=== PATIENT | female | born 1940 | race Caucasian/White ===

== ENCOUNTER 2016-07-21 13:21 | Outpatient (CLI) | payer MEDICARE | END 2016-07-21 13:22 | disposition home or self-care (01) | DX: I63.9 Cerebral infarction, unspecified (principal); Z79.01 Long term (current) use of anticoagulants; I48.91 Unspecified atrial fibrillation ==

== ENCOUNTER 2016-08-03 10:36 | Outpatient (CLI) | payer MEDICARE | END 2016-08-03 10:37 | disposition home or self-care (01) | DX: I63.9 Cerebral infarction, unspecified (principal); Z79.01 Long term (current) use of anticoagulants ==

== ENCOUNTER 2016-08-17 10:51 | Outpatient (CLI) | payer MEDICARE | END 2016-08-17 10:52 | disposition home or self-care (01) | DX: I63.9 Cerebral infarction, unspecified (principal); Z79.01 Long term (current) use of anticoagulants ==

== ENCOUNTER 2016-08-31 08:31 | Outpatient (CLI) | payer MEDICARE | END 2016-08-31 08:32 | disposition home or self-care (01) | DX: I63.9 Cerebral infarction, unspecified (principal); Z79.01 Long term (current) use of anticoagulants ==

== ENCOUNTER 2016-09-05 08:35 | Outpatient (CLI) | payer MEDICARE | END 2016-09-05 08:36 | disposition home or self-care (01) | DX: I63.9 Cerebral infarction, unspecified (principal) ==

== ENCOUNTER 2016-09-14 09:50 | Outpatient (CLI) | payer MEDICARE | END 2016-09-14 09:51 | disposition home or self-care (01) | DX: I48.91 Unspecified atrial fibrillation (principal); I63.9 Cerebral infarction, unspecified; Z79.01 Long term (current) use of anticoagulants ==

== ENCOUNTER 2016-10-04 09:26 | Outpatient (CLI) | payer MEDICARE | END 2016-10-04 09:27 | DX: I48.91 Unspecified atrial fibrillation (principal); I63.9 Cerebral infarction, unspecified; Z79.01 Long term (current) use of anticoagulants ==

== ENCOUNTER 2016-10-12 15:13 | Outpatient (CLI) | payer MEDICARE | END 2016-10-12 15:14 | disposition home or self-care (01) | DX: I48.91 Unspecified atrial fibrillation (principal); I63.9 Cerebral infarction, unspecified; Z79.01 Long term (current) use of anticoagulants ==

== ENCOUNTER 2016-10-25 10:41 | Outpatient (CLI) | payer MEDICARE | END 2016-10-25 10:42 | disposition home or self-care (01) | DX: I48.91 Unspecified atrial fibrillation (principal); Z79.01 Long term (current) use of anticoagulants; I63.9 Cerebral infarction, unspecified ==

== ENCOUNTER 2016-10-25 22:03 | Emergency (ER) | payer MEDICARE ==
--- NOTE | 2016-10-26 00:19 | ED Physician Documentation ---
PD HPI HEAD INJURY - Stated complaint Stated Complaint: EYE LAC - Chief complaint Chief Complaint: Laceration - History obtained from History obtained from: Patient - History of Present Illness Mechanism of head injury: Fell Where head injury occurred: Other (parking lot, tripped on curb) Timing - onset: Today (noon) Pain level max: 0 Pain level now: 0 Location of injury: Right, Front Associated symptoms: No: LOC, Nausea / vomiting, Neck pain Contributing factors: Anticoagulated Recently seen: Not recently seen - Additional information Additional information: patient was walking in a parking lot, tripped on a curb, fell and struck her head on the ground, sustaining four head laceration. This occurred today around noon. Patient presents at this time to the emergency department after recognizing the wound was deeper then she first thought. She denies loss of consciousness. she denies headache she denies pain including neck pain. Patient denies numbness, weakness, nausea. Review of Systems Eyes: reports: Reviewed and negative Ears: reports: Reviewed and negative Nose: reports: Reviewed and negative Throat: reports: Reviewed and negative Skin: reports: Laceration (s) Musculoskeletal: reports: Reviewed and negative. denies: Neck pain Neurologic: reports: Head injury. denies: Generalized weakness, Focal weakness , Numbness, Headache, LOC PD PAST MEDICAL HISTORY - Past Medical History Cardiovascular: Hypertension, High cholesterol, [place], Atrial fibrillation Respiratory: None Neuro: CVA, TIA Endocrine/Autoimmune: None GI: None : None HEENT: Chronic vision loss, Chronic hearing loss Psych: Depression, Anxiety Musculoskeletal: Other Derm: None - Past Surgical History Past Surgical History: Yes Ortho: Hip replacement HEENT: Tonsil/Adenoidectomy - Present Medications Home Medications: Ambulatory Orders Medication Instructions Recorded Confirmed Gabapentin [Neurontin] 150 mg PO BID 08/08/13 10/25/16 Lisinopril [Prinivil] 10 mg PO DAILY 08/08/13 10/25/16 Simvastatin [Zocor] 10 mg PO HS 08/08/13 10/25/16 Sotalol [Betapace] 160 mg PO BID 08/08/13 10/25/16 Vit D3/Folic Acid/B2/B6/B12 1 each PO DAILY 08/08/13 10/25/16 [Folgard Tablet] Warfarin [Coumadin] 5 mg PO 1400 08/08/13 10/25/16 buPROPion [Wellbutrin Sr] 150 mg PO BID 11/19/15 10/25/16 Donepezil [Aricept] 5 mg PO DAILY PM 10/25/16 10/25/16 - Allergies Allergies/Adverse Reactions: Allergies Allergy/AdvReac Type Severity Reaction Status Date / Time Penicillins Allergy Unknown Verified 11/19/15 19:33 - Social History Does the pt smoke?: No Smoking Status: Never smoker Does the pt drink ETOH?: No Does the pt have substance abuse?: No - Immunizations Immunizations are current?: Yes - POLST Patient has POLST: No PD ED PE NORMAL - Vitals Vital signs reviewed: Yes - General General: Alert and oriented X 3, No acute distress, Well developed/nourished - HEENT HEENT: PERRL, EOMI, Moist mucous membranes, Pharynx benign, Dentition benign - Neck Neck: No bony TTP - Extremities Extremities: No deformity, No tenderness to palpate, Normal ROM s pain - Neuro Neuro: Alert and oriented X 3, engraver copperplate 2-12 intact, No motor deficit, No sensory deficit PD ED PE EXPANDED - HEENT HEENT Visual: 1 - laceration (1.5 cm) Results - Vitals Vitals: Oxygen O2 Source Room air Procedures - Laceration (location) Face right Length in cm: 1.5 Neurovascular status: Sensory intact, Motor intact, Vascular intact Anesthesia: Lidocaine 1% Wound Preparation: Chlorhexadine Skin layer closure: Nylon, Interrupted (running suture with a solitary single interrupted.), Running Other: Patient tolerated well, No complications, Neurovascular intact, Dressing applied Complexity: Simple PD MEDICAL DECISION MAKING - ED course Complexity details: considered differential, d/w patient Departure - Departure Disposition: 01 Home, Self Care Clinical Impression: Laceration Condition: Good Instructions: ED Laceration Facial Sutr Tape Follow-Up: Dedrick Randle MD [Primary Care Provider] - (Follow up in 7-8 days for suture (stitch) removal) Discharge Date/Time: 10/26/16 02:06
[2016-10-26 00:24] VITALS: BP 111/54
[2016-10-26] MEDS ORDERED: LIDOCAINE 1% 2 ML VIAL ONE (00:40)
[2016-10-26] MEDS ORDERED: BACITRACIN OINT TOP STA (01:49)
== END 2016-10-26 02:06 | disposition home or self-care (01) ==
LOC: ED 22:03
DX: S01.81XA Laceration without foreign body of other part of head, initial encounter (principal); W01.198A Fall on same level from slipping, tripping and stumbling with subsequent striking against other object, initial encounter; Y92.481 Parking lot as the place of occurrence of the external cause; Y93.01 Activity, walking, marching and hiking; I10 Essential (primary) hypertension; Z86.73 Personal history of transient ischemic attack (TIA), and cerebral infarction without residual deficits; Z79.01 Long term (current) use of anticoagulants; E78.00 Pure hypercholesterolemia, unspecified; I25.2 Old myocardial infarction; I48.91 Unspecified atrial fibrillation
CPT/HCPCS: 12011; 85610; 99282

== ENCOUNTER 2016-11-08 13:17 | Outpatient (CLI) | payer MEDICARE | END 2016-11-08 13:18 | disposition home or self-care (01) | DX: I63.9 Cerebral infarction, unspecified (principal); Z79.01 Long term (current) use of anticoagulants; I48.91 Unspecified atrial fibrillation ==

== ENCOUNTER 2016-11-15 11:13 | Outpatient (CLI) | payer MEDICARE | END 2016-11-15 11:14 | disposition home or self-care (01) | DX: I63.9 Cerebral infarction, unspecified (principal); Z79.01 Long term (current) use of anticoagulants; I48.91 Unspecified atrial fibrillation ==

== ENCOUNTER 2016-11-22 08:06 | Outpatient (CLI) | payer MEDICARE | END 2016-11-22 08:07 | disposition home or self-care (01) | DX: M86.652 Other chronic osteomyelitis, left thigh (principal) ==

== ENCOUNTER 2016-11-23 12:52 | Outpatient (CLI) | payer MEDICARE | END 2016-11-23 12:53 | disposition home or self-care (01) | DX: I48.91 Unspecified atrial fibrillation (principal); I63.9 Cerebral infarction, unspecified; Z79.01 Long term (current) use of anticoagulants ==

== ENCOUNTER 2016-11-27 11:02 | Outpatient (CLI) | payer MEDICARE | END 2016-11-27 11:03 | disposition home or self-care (01) | DX: I48.91 Unspecified atrial fibrillation (principal); I63.9 Cerebral infarction, unspecified; Z79.01 Long term (current) use of anticoagulants ==

== ENCOUNTER 2016-11-30 14:56 | Outpatient (CLI) | payer MEDICARE | END 2016-11-30 14:57 | disposition home or self-care (01) | LOC: LAB.F 14:56 | PROVIDERS: ATTEND Family Medicine | DX: I48.91 Unspecified atrial fibrillation (principal) | CPT/HCPCS: 85610 ==

== ENCOUNTER 2016-12-05 09:53 | Outpatient (CLI) | payer MEDICARE | END 2016-12-05 09:54 | disposition home or self-care (01) | LOC: LAB.F 09:53 | PROVIDERS: ATTEND Family Medicine | DX: I48.91 Unspecified atrial fibrillation (principal) | CPT/HCPCS: 85610 ==

== ENCOUNTER 2016-12-14 10:07 | Outpatient (CLI) | payer MEDICARE | END 2016-12-14 10:08 | disposition home or self-care (01) | LOC: LAB.F 10:07 | PROVIDERS: ATTEND Family Medicine | DX: I48.91 Unspecified atrial fibrillation (principal) | CPT/HCPCS: 85610 ==

== ENCOUNTER 2016-12-28 07:49 | Outpatient (CLI) | payer MEDICARE | END 2016-12-28 07:50 | disposition home or self-care (01) | LOC: LAB.F 07:49 | PROVIDERS: ATTEND Family Medicine | DX: I63.9 Cerebral infarction, unspecified (principal) | CPT/HCPCS: 85610 ==

== ENCOUNTER 2017-01-10 14:06 | Outpatient (CLI) | payer MEDICARE | END 2017-01-10 14:07 | disposition home or self-care (01) | LOC: LAB.F 14:06 | PROVIDERS: ATTEND Family Medicine | DX: I63.9 Cerebral infarction, unspecified (principal) | CPT/HCPCS: 85610 ==

== ENCOUNTER 2017-01-12 09:29 | Outpatient (CLI) | payer MEDICARE ==
[2017-01-12 17:36] LABS: BASOPHILS % (AUTO) 0.5 %; EOSINOPHILS # (AUTO) 0.2 10^3/uL (0.0-0.7); EOSINOPHILS % (AUTO) 3.5 %; HCT - HEMATOCRIT 40.7 % (37.0-47.0); HGB - HEMOGLOBIN 13.1 g/dL (12.0-16.0); LYMPHOCYTES # (AUTO) 1.4 10^3/uL (1.5-3.5); LYMPHOCYTES % (AUTO) 31.8 %; MEAN CORPUSCULAR HEMOGLOBIN 29.7 pg (27.0-31.0); MEAN CORPUSCULAR HGB CONC 32.2 g/dL (32.0-36.0); MEAN CORPUSCULAR VOLUME 92.2 fL (81.0-99.0); MEAN PLATELET VOLUME 9.1 fL (7.9-10.8); MONOCYTES # (AUTO) 0.4 10^3/uL (0.0-1.0); MONOCYTES % (AUTO) 8.8 %; NEUTROPHILS # (AUTO) 2.5 10^3/uL (1.5-6.6); NEUTROPHILS % (AUTO) 55.4 %; NUCLEATED RED BLOOD CELLS AUTO 0.1 /100WBC; RED BLOOD COUNT 4.41 10^6/uL (4.20-5.40); RED CELL DISTRIBUTION WIDTH 15.7 % (12.0-15.0); UNCORRECTED WHITE BLOOD COUNT 4.5 x10^3/uL; WHITE BLOOD COUNT 4.5 x10^3/uL (4.8-10.8)
[2017-01-12 20:26] LABS: ALBUMIN/GLOBULIN RATIO 0.9 (1.0-2.2); BILIRUBIN,TOTAL 0.5 mg/dL (0.2-1.0); BUN - BLOOD UREA NITROGEN 17 mg/dL (6-20); CALCIUM 9.2 mg/dL (8.5-10.3); CARBON DIOXIDE - CO2 31 mmol/L (21-32); CHLORIDE 101 mmol/L (101-111); CHOL/HDL RATIO 2.8 (<4.4); CHOLESTEROL 151 mg/dL; CREATININE 0.8 mg/dL (0.4-1.0); GFR - MDRD 70 (>89); GLUCOSE 89 mg/dL (70-100); HDL CHOLESTEROL 54 mg/dL; LDL/HDL RATIO 1.6 (<4.4); POTASSIUM 4.3 mmol/L (3.5-5.0); SODIUM 138 mmol/L (135-145); TRIGLYCERIDES 59 mg/dL; VLDL CHOLESTEROL 12 mg/dL
== END 2017-01-12 09:30 | disposition home or self-care (01) ==
LOC: LAB.F 09:29
PROVIDERS: ATTEND Family Medicine
DX: I63.9 Cerebral infarction, unspecified (principal)
CPT/HCPCS: 36415; 80053; 80061; 84443; 85025

== ENCOUNTER 2017-01-24 13:42 | Outpatient (CLI) | payer MEDICARE | END 2017-01-24 13:43 | disposition home or self-care (01) | LOC: LAB.F 13:42 | PROVIDERS: ATTEND Family Medicine | DX: I63.9 Cerebral infarction, unspecified (principal); I48.91 Unspecified atrial fibrillation; Z79.01 Long term (current) use of anticoagulants | CPT/HCPCS: 85610 ==

== ENCOUNTER 2017-02-07 11:16 | Outpatient (CLI) | payer MEDICARE | END 2017-02-07 11:17 | disposition home or self-care (01) | LOC: LAB.F 11:16 | PROVIDERS: ATTEND Family Medicine | DX: I63.9 Cerebral infarction, unspecified (principal) | CPT/HCPCS: 85610 ==

== ENCOUNTER 2017-02-21 15:08 | Outpatient (CLI) | payer MEDICARE | END 2017-02-21 15:09 | disposition home or self-care (01) | LOC: LAB.F 15:08 | PROVIDERS: ATTEND Family Medicine | DX: I63.9 Cerebral infarction, unspecified (principal) | CPT/HCPCS: 85610 ==

== ENCOUNTER 2017-03-07 13:14 | Outpatient (CLI) | payer MEDICARE | END 2017-03-07 13:15 | disposition home or self-care (01) | LOC: LAB.F 13:14 | PROVIDERS: ATTEND Family Medicine | DX: I63.9 Cerebral infarction, unspecified (principal) | CPT/HCPCS: 85610 ==

== ENCOUNTER 2017-03-21 13:18 | Outpatient (CLI) | payer MEDICARE | END 2017-03-21 13:19 | disposition home or self-care (01) | LOC: LAB.F 13:18 | PROVIDERS: ATTEND Family Medicine | DX: I63.9 Cerebral infarction, unspecified (principal); Z79.01 Long term (current) use of anticoagulants | CPT/HCPCS: 85610 ==

== ENCOUNTER 2017-03-29 13:19 | Outpatient (CLI) | payer MEDICARE | END 2017-03-29 13:20 | disposition home or self-care (01) | LOC: LAB.F 13:19 | PROVIDERS: ATTEND Family Medicine | DX: I63.9 Cerebral infarction, unspecified (principal); Z79.01 Long term (current) use of anticoagulants; I48.91 Unspecified atrial fibrillation | CPT/HCPCS: 85610 ==

== ENCOUNTER 2017-05-01 13:22 | Outpatient (CLI) | payer MEDICARE | END 2017-05-01 13:23 | disposition home or self-care (01) | LOC: LAB.F 13:22 | PROVIDERS: ATTEND Family Medicine | DX: I63.9 Cerebral infarction, unspecified (principal); Z79.01 Long term (current) use of anticoagulants; I48.91 Unspecified atrial fibrillation | CPT/HCPCS: 85610 ==

== ENCOUNTER 2017-06-06 14:31 | Outpatient (CLI) | payer MEDICARE | END 2017-06-06 14:32 | disposition home or self-care (01) | LOC: LAB.F 14:31 | PROVIDERS: ATTEND Family Medicine | DX: I63.9 Cerebral infarction, unspecified (principal); Z79.01 Long term (current) use of anticoagulants | CPT/HCPCS: 85610 ==

== ENCOUNTER 2017-06-20 14:23 | Outpatient (CLI) | payer MEDICARE | END 2017-06-20 14:24 | disposition home or self-care (01) | LOC: LAB.F 14:23 | PROVIDERS: ATTEND Family Medicine | DX: I63.9 Cerebral infarction, unspecified (principal); Z79.01 Long term (current) use of anticoagulants | CPT/HCPCS: 85610 ==

== ENCOUNTER 2017-07-16 12:52 | Outpatient (CLI) | payer MEDICARE | END 2017-07-16 12:53 | disposition home or self-care (01) | LOC: LAB.F 12:52 | PROVIDERS: ATTEND Family Medicine | DX: I63.9 Cerebral infarction, unspecified (principal); Z79.01 Long term (current) use of anticoagulants; I48.91 Unspecified atrial fibrillation | CPT/HCPCS: 85610 ==

== ENCOUNTER 2017-07-30 15:18 | Outpatient (CLI) | payer MEDICARE | END 2017-07-30 15:19 | disposition home or self-care (01) | LOC: LAB.F 15:18 | PROVIDERS: ATTEND Family Medicine | DX: I63.9 Cerebral infarction, unspecified (principal); Z79.01 Long term (current) use of anticoagulants | CPT/HCPCS: 85610 ==

== ENCOUNTER 2017-08-22 11:15 | Outpatient (CLI) | payer MEDICARE | END 2017-08-22 11:16 | disposition home or self-care (01) | LOC: LAB.F 11:15 | PROVIDERS: ATTEND Family Medicine | DX: I63.9 Cerebral infarction, unspecified (principal); Z79.01 Long term (current) use of anticoagulants | CPT/HCPCS: 85610 ==

== ENCOUNTER 2017-08-30 11:16 | Outpatient (CLI) | payer MEDICARE | END 2017-08-30 11:17 | disposition home or self-care (01) | LOC: LAB.F 11:16 | PROVIDERS: ATTEND Family Medicine | DX: I63.9 Cerebral infarction, unspecified (principal); Z79.01 Long term (current) use of anticoagulants | CPT/HCPCS: 85610 ==

== ENCOUNTER 2017-09-12 10:11 | Outpatient (CLI) | payer MEDICARE | END 2017-09-12 10:12 | disposition home or self-care (01) | LOC: LAB.F 10:11 | PROVIDERS: ATTEND Family Medicine | DX: I63.9 Cerebral infarction, unspecified (principal); Z79.01 Long term (current) use of anticoagulants | CPT/HCPCS: 85610 ==

== ENCOUNTER 2017-10-04 09:29 | Outpatient (CLI) | payer MEDICARE | END 2017-10-04 09:30 | disposition home or self-care (01) | LOC: LAB.F 09:29 | PROVIDERS: ATTEND Family Medicine | DX: I63.9 Cerebral infarction, unspecified (principal); Z79.01 Long term (current) use of anticoagulants | CPT/HCPCS: 85610 ==

== ENCOUNTER 2017-10-25 09:42 | Outpatient (CLI) | payer MEDICARE | END 2017-10-25 09:43 | disposition home or self-care (01) | LOC: LAB.F 09:42 | PROVIDERS: ATTEND Family Medicine | DX: I63.9 Cerebral infarction, unspecified (principal); Z79.01 Long term (current) use of anticoagulants | CPT/HCPCS: 85610 ==

== ENCOUNTER 2017-11-23 08:34 | Outpatient (CLI) | payer MEDICARE | END 2017-11-23 08:35 | disposition home or self-care (01) | LOC: LAB.F 08:34 | PROVIDERS: ATTEND Family Medicine | DX: I63.9 Cerebral infarction, unspecified (principal); Z79.01 Long term (current) use of anticoagulants | CPT/HCPCS: 85610 ==

== ENCOUNTER 2017-12-13 08:59 | Outpatient (CLI) | payer MEDICARE | END 2017-12-13 09:00 | disposition home or self-care (01) | LOC: LAB.F 08:59 | PROVIDERS: ATTEND Family Medicine | DX: I48.91 Unspecified atrial fibrillation (principal); Z79.01 Long term (current) use of anticoagulants | CPT/HCPCS: 85610 ==

== ENCOUNTER 2018-01-03 11:17 | Outpatient (CLI) | payer MEDICARE | END 2018-01-03 11:18 | disposition home or self-care (01) | LOC: LAB.F 11:17 | PROVIDERS: ATTEND Family Medicine | DX: I48.91 Unspecified atrial fibrillation (principal); Z79.01 Long term (current) use of anticoagulants | CPT/HCPCS: 85610 ==

== ENCOUNTER 2018-01-10 13:54 | Outpatient (CLI) | payer MEDICARE | END 2018-01-10 13:55 | disposition home or self-care (01) | LOC: LAB.F 13:54 | PROVIDERS: ATTEND Family Medicine | DX: Z79.01 Long term (current) use of anticoagulants (principal); I48.91 Unspecified atrial fibrillation | CPT/HCPCS: 85610 ==

== ENCOUNTER 2018-01-18 08:50 | Outpatient (CLI) | payer MEDICARE ==
[2018-01-18 10:43] LABS: BASOPHILS % (AUTO) 1.3 %; EOSINOPHILS # (AUTO) 0.2 10^3/uL (0.0-0.7); EOSINOPHILS % (AUTO) 7.1 %; HGB - HEMOGLOBIN 12.8 g/dL (12.0-16.0); LYMPHOCYTES # (AUTO) 1.3 10^3/uL (1.5-3.5); LYMPHOCYTES % (AUTO) 35.9 %; MEAN CORPUSCULAR HGB CONC 32.5 g/dL (32.0-36.0); MEAN CORPUSCULAR VOLUME 95.5 fL (81.0-99.0); MEAN PLATELET VOLUME 9.6 fL (7.9-10.8); MONOCYTES # (AUTO) 0.3 10^3/uL (0.0-1.0); MONOCYTES % (AUTO) 9.9 %; NEUTROPHILS # (AUTO) 1.6 10^3/uL (1.5-6.6); NEUTROPHILS % (AUTO) 45.8 %; PLT - PLATELET COUNT 117 10^3/uL (130-450); RED BLOOD COUNT 4.13 10^6/uL (4.20-5.40); RED CELL DISTRIBUTION WIDTH 15.6 % (12.0-15.0); WHITE BLOOD COUNT 3.5 x10^3/uL (4.8-10.8)
[2018-01-18 10:52] LABS: ALBUMIN 3.4 g/dL (3.2-5.5); ALKALINE PHOSPHATASE 60 IU/L (42-121); ALT ALANINE AMINOTRANSFERASE 16 IU/L (10-60); AST ASPARTATE AMINOTRANSFERASE 26 IU/L (10-42); BILIRUBIN,TOTAL 0.7 mg/dL (0.2-1.0); BUN - BLOOD UREA NITROGEN 29 mg/dL (6-20); CALCIUM 9.2 mg/dL (8.5-10.3); CARBON DIOXIDE - CO2 28 mmol/L (21-32); CHLORIDE 103 mmol/L (101-111); CHOL/HDL RATIO 2.2 (<4.4); CHOLESTEROL 149 mg/dL; CREATININE 0.8 mg/dL (0.4-1.0); GFR - MDRD 70 (>89); GLUCOSE 81 mg/dL (70-100); HDL CHOLESTEROL 69 mg/dL; SODIUM 137 mmol/L (135-145); TOTAL PROTEIN 6.8 g/dL (6.7-8.2)
[2018-01-18 11:13] LABS: LDL CHOLESTEROL,DIRECT 86 mg/dL; LDLD/HDL RATIO 1.2 (<4.4)
== END 2018-01-18 08:51 | disposition home or self-care (01) ==
LOC: LAB.F 08:50
PROVIDERS: ATTEND Family Medicine
DX: I48.91 Unspecified atrial fibrillation (principal)
CPT/HCPCS: 36415; 80053; 80061; 83721; 84443; 85025

== ENCOUNTER 2018-02-01 09:55 | Outpatient (CLI) | payer MEDICARE | END 2018-02-01 09:56 | disposition home or self-care (01) | LOC: LAB.F 09:55 | PROVIDERS: ATTEND Family Medicine | DX: Z79.01 Long term (current) use of anticoagulants (principal); I63.9 Cerebral infarction, unspecified; I48.91 Unspecified atrial fibrillation | CPT/HCPCS: 85610 ==

== ENCOUNTER 2018-02-28 09:39 | Outpatient (CLI) | payer MEDICARE | END 2018-02-28 09:40 | disposition home or self-care (01) | LOC: LAB.F 09:39 | PROVIDERS: ATTEND Family Medicine | DX: Z79.01 Long term (current) use of anticoagulants (principal); I63.9 Cerebral infarction, unspecified; I48.91 Unspecified atrial fibrillation | CPT/HCPCS: 85610 ==

== ENCOUNTER 2018-03-28 08:00 | Outpatient (CLI) | payer MEDICARE | END 2018-03-28 08:01 | disposition home or self-care (01) | LOC: LAB.F 08:00 | PROVIDERS: ATTEND Family Medicine | DX: Z79.01 Long term (current) use of anticoagulants (principal); I48.91 Unspecified atrial fibrillation | CPT/HCPCS: 85610 ==

== ENCOUNTER 2018-04-15 09:08 | Outpatient (CLI) | payer MEDICARE | END 2018-04-15 09:09 | disposition critical access hospital (66) | LOC: EMS 09:08 | PROVIDERS: ATTEND Surgery | DX: R55 Syncope and collapse (principal); R42 Dizziness and giddiness; M54.5 Low back pain; R07.9 Chest pain, unspecified; W18.39XA Other fall on same level, initial encounter; Y93.01 Activity, walking, marching and hiking; Y92.002 Bathroom of unspecified non-institutional (private) residence as the place of occurrence of the external cause | CPT/HCPCS: A0425; A0427 ==

== ENCOUNTER 2018-04-15 09:28 | Observation (INO) | payer MEDICARE ==
[2018-04-15] MEDS ORDERED: ACETAMINOPHEN 325 MG TABLET PO STA (09:39)
--- NOTE | 2018-04-15 09:43 | ED Physician Documentation ---
History of Present Illness - Stated complaint Stated Complaint: GLF - Chief complaint Chief Complaint: Cardiac - Additonal information Additional information: hx from pt and EMS and 78 female [place] pt PMD Dr Bisi Anderson this AM felt faint and dizzy and had a syncopal episode out for approx 2 min per EMS states she had a pulse and was breathing no seizure activity reported now having low back pain from fall denies hitting head or MOYA but on coumadin did have CP and EMS found pt in fib RVR upon their arrival spont converted CP gone now EMS EKG showed ant ST elev but EMS states she has an EKG from February that was similar - unfortunately this EKG was done at [facility] and neither EMS nor brought it in no recent illness no recent med changes no hx of same Review of Systems Constitutional: denies: Fever, Chills Cardiac: reports: Chest pain / pressure, Palpitations Respiratory: denies: Dyspnea, Cough GI: denies: Abdominal Pain, Nausea, Vomiting Musculoskeletal: reports: Back pain. denies: Neck pain Neurologic: reports: Generalized weakness, Syncope. denies: Focal weakness, Numbness, Seizure, Headache, Head injury Endocrine: reports: Easy bruising / bleeding Immunocompromised: denies: Immunocompromised PD PAST MEDICAL HISTORY - Past Medical History Cardiovascular: Hypertension, High cholesterol, [place], Atrial fibrillation Respiratory: None Endocrine/Autoimmune: None GI: None : None HEENT: Chronic vision loss, Chronic hearing loss Psych: Depression, Anxiety Musculoskeletal: Other Derm: None - Past Surgical History Past Surgical History: Yes Ortho: Hip replacement HEENT: Tonsil/Adenoidectomy - Present Medications Home Medications: Ambulatory Orders Medication Instructions Recorded Confirmed Gabapentin [Neurontin] 300 mg PO BID 08/08/13 04/15/18 Lisinopril [Prinivil] 10 mg PO DAILY 08/08/13 04/15/18 Simvastatin [Zocor] 10 mg PO HS 08/08/13 04/15/18 Sotalol [Betapace] 160 mg PO BID 08/08/13 04/15/18 Warfarin [Coumadin] 5 mg PO 1400 08/08/13 04/15/18 Cefuroxime Axetil [Cefuroxime] 500 mg PO BID 04/15/18 04/15/18 Cholecalciferol (Vitamin D3) 1,000 unit PO DAILY 10/08/18 10/08/18 [Vitamin D3] Citalopram Hydrobromide 10 mg PO DAILY 04/15/18 04/15/18 [Citalopram HBr] Donepezil HCl 10 mg PO DAILY 04/15/18 04/15/18 Oxycodone HCl/Acetaminophen 1 tab PO Q4H PRN 04/15/18 04/15/18 [Oxycodone-Acetaminophen 5-325] - Allergies Allergies/Adverse Reactions: Allergies Allergy/AdvReac Type Severity Reaction Status Date / Time Penicillins Allergy Unknown Verified 11/19/15 19:33 - Social History Does the pt smoke?: No Smoking Status: Never smoker Does the pt drink ETOH?: No Does the pt have substance abuse?: No - Immunizations Immunizations are current?: Yes - POLST Patient has POLST: No PD ED PE NORMAL - Vitals Vital signs reviewed: Yes - General General: Alert and oriented X 3 - HEENT HEENT: Atraumatic, PERRL, EOMI - Neck Neck: No bony TTP - Cardiac Cardiac: RRR - Respiratory Respiratory: No respiratory distress, Clear bilaterally - Abdomen Abdomen: Soft, Non tender - Derm Derm: Normal color - Extremities Extremities: No deformity, No edema, No calf tenderness / cord - Neuro Neuro: Alert and oriented X 3, air moving technician 2-12 intact, No motor deficit, No sensory deficit, Normal speech Eye Opening: Spontaneous Motor: Obeys Commands Verbal: Oriented GCS Score: 15 Results - Vitals Vitals: Vital Signs - 24 hr 04/15/18 09:29 Temperature 36.0 C L Heart Rate 63 Respiratory 16 Rate Blood Pressure 152/72 H O2 Saturation 99 Oxygen O2 Source Room air - EKG (time done) 0936 Rate: Rate (enter#) (59) Rhythm: NSR Intervals: Prolonged QT, Wide QRS (borderline) Ischemia: ST elevation c/w ischemia (V2 - similar to prior EKG) - Rads (name of study) CTH Radiology: See rad report (no acute) L spine Radiology: See rad report (degen changes) pelvis Radiology: See rad report (no acute fx dislocation) CXR Radiology: See rad report (no acute process) PD MEDICAL DECISION MAKING - ED course ED course: a fib RVR with CP/syncope and abn (though not new) EKG and prolonged QT hx int a fib usually controlled with sotalol will admit for tele, echo, serial trops, hold ST prolonging meds called hospitalist at 11 AM spoke to hospitalist at 1115 - she will admit to obs pt and family updated - Sepsis Event Vital Signs: Vital Signs - 24 hr 04/15/18 09:29 Temperature 36.0 C L Heart Rate 63 Respiratory 16 Rate Blood Pressure 152/72 H O2 Saturation 99 Oxygen O2 Source Room air Departure - Departure Disposition: ED Place in Observation Clinical Impression: Prolonged QT interval, Abnormal EKG Syncope Qualifiers: Syncope type: unspecified Qualified Code(s): R55 - Syncope and collapse Chest pain Qualifiers: Chest pain type: unspecified Qualified Code(s): R07.9 - Chest pain, unspecified A-fib Qualifiers: Atrial fibrillation type: paroxysmal Qualified Code(s): I48.0 - Paroxysmal atrial fibrillation Condition: Fair
[2018-04-15 10:11] LABS: BASOPHILS % (AUTO) 0.4 %; EOSINOPHILS # (AUTO) 0.1 10^3/uL (0.0-0.7); EOSINOPHILS % (AUTO) 3.5 %; HGB - HEMOGLOBIN 14.6 g/dL (12.0-16.0); LYMPHOCYTES # (AUTO) 1.2 10^3/uL (1.5-3.5); LYMPHOCYTES % (AUTO) 27.7 %; MEAN CORPUSCULAR HEMOGLOBIN 31.9 pg (27.0-31.0); MEAN CORPUSCULAR HGB CONC 34.3 g/dL (32.0-36.0); MEAN CORPUSCULAR VOLUME 92.9 fL (81.0-99.0); MEAN PLATELET VOLUME 9.1 fL (7.9-10.8); MONOCYTES # (AUTO) 0.3 10^3/uL (0.0-1.0); MONOCYTES % (AUTO) 7.4 %; NEUTROPHILS # (AUTO) 2.6 10^3/uL (1.5-6.6); PLT - PLATELET COUNT 113 10^3/uL (130-450); RED BLOOD COUNT 4.57 10^6/uL (4.20-5.40); RED CELL DISTRIBUTION WIDTH 14.6 % (12.0-15.0); WHITE BLOOD COUNT 4.2 x10^3/uL (4.8-10.8)
[2018-04-15 10:16] LABS: CALCIUM 9.3 mg/dL (8.5-10.3); CREATININE 0.8 mg/dL (0.4-1.0)
[2018-04-15 10:22] LABS: INR 2.1 (0.8-1.2); PT - PROTHROMBIN TIME 22.7 secs (9.9-12.6)
--- NOTE | 2018-04-15 10:23 | XRAY Report ---
Reason: chest pain Procedure Date: 04/15/2018 Accession Number: [id number] / [id number] Procedure: XR - Chest 1 View X-Ray CPT Code: 46000 FULL RESULT: EXAM: CHEST RADIOGRAPHY EXAM DATE: 04/15/2018 10:04 AM. CLINICAL HISTORY: Chest pain. COMPARISON: CHEST 2 VIEW PA/LAT 02/25/2015 3:52 PM. TECHNIQUE: 1 view. FINDINGS: The inferior most lung bases are partially excluded. Visualized portions of the chest radiograph are essentially stable with hyperinflated lungs and unchanged cardiomediastinal silhouette with partially calcified aorta. No sizable pleural effusion or pneumothorax is appreciated. There is no lobar consolidation. IMPRESSION: Limited stable examination with no acute cardiopulmonary abnormality. RADIA
--- NOTE | 2018-04-15 10:27 | XRAY Report ---
Reason: fall pain Procedure Date: 04/15/2018 Accession Number: [id number] / [id number] Procedure: XR - Pelvis 1 View CPT Code: FULL RESULT: EXAM: PELVIS RADIOGRAPHY EXAM DATE: 04/15/2018 10:04 AM. CLINICAL HISTORY: Fall pain. COMPARISON: X-ray hip unilateral, minimum 2 views 11/27/2009 5:31 PM. TECHNIQUE: 1 view. FINDINGS: The patient is status post bilateral total hip arthroplasty. There is a healed peritrochanteric fracture through the left femur, new compared to 2009 but similar in configuration to a 2013 CT. There has been interval increased thickening of the previously abnormally thickened diaphyseal left femoral cortex, also partially visualized on the right femoral diaphysis and most consistent with bisphosphonate use. No fracture or dislocation of the right femur is identified. IMPRESSION: Interval vance- left femoral fracture which appears to have healed. Finding is new compared to 11/27/2009 but appears similar to 2014 CT. No definite acute fracture or dislocation. CRITICAL RESULT: The findings were discussed with Dr. Menchaca on 04/15/2018 at 10:30 a.m. JOSE
--- NOTE | 2018-04-15 10:28 | XRAY Report ---
Reason: fall back pain Procedure Date: 04/15/2018 Accession Number: [id number] / [id number] Procedure: XR - Lumbar Spine 2 View CPT Code: FULL RESULT: EXAM: LUMBOSACRAL SPINE RADIOGRAPHY EXAM DATE: 04/15/2018 10:04 AM. CLINICAL HISTORY: Fall back pain. COMPARISONS: None. TECHNIQUE: 3 views. FINDINGS: Limited examination with 5 [id number] lumbar vertebral bodies with multilevel degenerative changes, which are most pronounced at L5 and no overt listhesis or traumatic scoliosis. IMPRESSION: Limited evaluation with degenerative changes identified. RADIA
--- NOTE | 2018-04-15 10:29 | CT Report ---
Reason: fall coumadin Procedure Date: 04/15/2018 Accession Number: [id number] / [id number] Procedure: CT - Head W/O CPT Code: FULL RESULT: EXAM: CT HEAD EXAM DATE: 04/15/2018 10:14 AM. CLINICAL HISTORY: Fall, coumadin. COMPARISON: Head w/o 02/25/2015 3:57 PM. TECHNIQUE: Multiaxial CT images were obtained from the foramen magnum to the vertex. Reformats: Sagittal and coronal. IV contrast: None. In accordance with CT protocol optimization, one or more of the following dose reduction techniques were utilized for this exam: automated exposure control, adjustment of mA and/or KV based on patient size, or use of iterative reconstructive technique. FINDINGS: Parenchyma: No intraparenchymal hemorrhage. No evidence of mass, midline shift, or CT findings of infarction. Golden-white differentiation is distinct. Extraaxial Spaces: Normal for age. No subdural or epidural collections identified. Ventricles: Normal in size and position. Sinuses and Orbits: Imaged paranasal sinuses, orbits, and mastoids show no significant abnormality. Bones: No evidence of fracture or calvarial defect. Other: None. IMPRESSION: No acute intracranial abnormality. RADIA
[2018-04-15] MEDS ORDERED: SODIUM CHLORIDE FLUSH 0.9% 10 ML SYRINGE IVP PRN (12:53)
[2018-04-15] MEDS ORDERED: ZOLPIDEM 5 MG TABLET PO PRN (12:53)
[2018-04-15] MEDS ORDERED: ONDANSETRON 4 MG/2 ML VIAL IVP PRN (12:53)
[2018-04-15] MEDS ORDERED: oxyCODONE 5 MG TABLET PO PRN (13:20)
--- NOTE | 2018-04-15 13:39 | HISTORY & PHYSICAL EXAMINATION ---
Chief Complaint - Chief Complaint Chief Complaint: syncope History of Present Illness - History of Present Illness HPI Comment/Other: Ms. Salguero is a 75 y/o female with a PMH significance for a fib on Coumadin, hx of CVA, syncope, HTN, HLD, CAD, depression and anxiety, chronic lower back pain, who present ER for complain of syncope. Pt repeat she feel lightheaded and felt dizziness at home. Then her noted she was slumped over and fell in the ground. She was arousable but had a second episode of slumping. pt reports she lost consciousness in this episode. Pt also report lower back pain after this incidence. Xray of spine and pelvis indicate no acute fracture. Head CT reveals no acute findings. Pt denies chest pain, fever, chill, shortness of breath. troponin is negative in ER, EKG is without significant change. pt is admitted in observation for syncope workup. History - Past Medical History Cardiovascular: reports: Hypertension, High cholesterol, [place], Atrial fibrillation Respiratory: reports: None Neuro: reports: CVA Endocrine/Autoimmune: reports: None GI: reports: None : reports: None HEENT: reports: Chronic vision loss, Chronic hearing loss Psych: reports: Depression, Anxiety Musculoskeletal: reports: Other Derm: reports: None MRSA Hx?: No - Past Surgical History Ortho: reports: Hip replacement HEENT: reports: Tonsil/Adenoidectomy - Family & Social History Family History: Mother: , Father: , CAD, [place] Family History Comment/Other: pt is living [facility] with her , pt had two child, one son and one daughter and had three grandfather. pt report her father from heart attack. her mother from old ago. Social History Notes: pt denies smoking, alcohol and drug problem - POLST Patient has POLST: No POLST Status: DNR Meds/Allgy - Home Medications Home Medications: Ambulatory Orders Medication Instructions Recorded Confirmed Gabapentin [Neurontin] 300 mg PO BID 08/08/13 04/15/18 Lisinopril [Prinivil] 10 mg PO DAILY 08/08/13 04/15/18 Simvastatin [Zocor] 10 mg PO HS 08/08/13 04/15/18 Sotalol [Betapace] 160 mg PO BID 08/08/13 04/15/18 Warfarin [Coumadin] 5 mg PO 1400 08/08/13 04/15/18 Cefuroxime Axetil [Cefuroxime] 500 mg PO BID 04/15/18 04/15/18 Cholecalciferol (Vitamin D3) 1,000 unit PO DAILY 04/15/18 04/15/18 [Vitamin D3] Citalopram Hydrobromide 10 mg PO DAILY 04/15/18 04/15/18 [Citalopram HBr] Donepezil HCl 10 mg PO DAILY 04/15/18 04/15/18 Oxycodone HCl/Acetaminophen 1 tab PO Q4H PRN 04/15/18 04/15/18 [Oxycodone-Acetaminophen 5-325] - Allergies Allergies/Adverse Reactions: Allergies Allergy/AdvReac Type Severity Reaction Status Date / Time Penicillins Allergy Unknown Verified 11/19/15 19:33 Review of Systems - Constitutional Constitutional: reports: Fatigue. denies: Fever, Chills, Malaise, Weakness, Poor appetite, Diaphoresis, Night sweats - Eyes Eyes: denies: Pain, Irritation, Amaurosis, Blurred vision, Spots in vision, Field loss, Vision loss, Dipolpia - Ears, Nose & Throat Ears, Nose & Throat: denies: Ear pain, Hearing loss, Hearing aids, Tinnitus, Vertigo, Nasal pain, Nasal discharge, Nosebleeds, Nasal obstruction, Postnasal drainage, Dentures, Sore throat, Hoarseness, Mouth lesions - Cardiovascular Cariovascular: reports: Syncope. denies: Irregular heart rate, Palpitations, Chest pain, Edema, Lightheadedness, Exertional dyspnea, Decr. exercise tolerance - Respiratory Respiratory: denies: Cough, Sputum production, Wheezing, Snoring, Hemoptysis, Orthopnea, SOB at rest, SOB with exertion - Gastrointestinal Gastrointestinal: denies: Abdominal pain, Abdominal distention, Constipation, Diarrhea, Change in bowel habits, Rectal bleeding, Black stools, Bloody stools, Nausea, Vomiting, Luis blood emesis, Coffee grounds emesis, Bloating, Poor appetite - Genitourinary Genitourinary: denies: Dysuria, Frequency, Urgency, Hematuria, Incontinence, Flank pain, Nocturia - Musculoskeletal Musculoskeletal: denies: Muscle pain, Back pain, Muscle aches, Stiffness, Limited range of motion, Muscle weakness, Gout, Joint pain - Integumentary Integumentary: denies: Rash, Pruritis, Lesions, Dryness, Lumps, Acne, Pigment changes, Nail changes - Neurological Neurological: denies: General weakness, Focal weakness, Headache, Dizziness, Numbness, Memory problems, Pre-existing deficit, Abnormal gait, Seizures, Incoordination, Slurred speech - Psychiatric Psychiatric: denies: Depression, Anxiety, Suicidal, Delusions, Hallucinations, Homicidal - Endocrine Endocrine: denies: Polyuria, Polydypsia, Polyphagia, Intolerance to cold - Hematologic/Lymphatic Hematologic/Lymphatic: denies: Anemia, Bruising, Petechiae, Blood clots, Ly mphadenopathy, Bleeding tendencies Prior Level of Functionality: pt is living with , has support Exam - Vital Signs Reviewed Vital Signs: Yes Vital Signs: Vital Signs x48h Temp Pulse Resp BP Pulse Ox 04/15/18 12:59 36.4 C L 60 16 129/70 97 04/15/18 11:39 72 14 142/64 H 97 04/15/18 10:25 60 16 134/75 H 99 04/15/18 09:29 36.0 C L 63 16 152/72 H 99 - Physical Exam General Appearance: positive: No acute distress, Alert. negative: Lethargic Eyes Bilateral: positive: Normal inspection, PERRL, No lid inflammation, Conjunctivae nml ENT: positive: ENT inspection nml, Pharynx nml, No signs of dehydration. negative: Purulent nasal drainage, Pharyngeal erythema, Oral lesions Neck: positive: Nml inspection, Thyroid nml, No JVD, Trachea midline. negative: Thyromegaly, Lymphadenopathy (R), Lymphadenopathy (L), Stiff neck, Swelling/bruising, Tracheal deviation Respiratory: positive: Chest non-tender, No respiratory distress, Breath sounds nml. negative: Wheezes, Rales, Rhonchi Cardiovascular: positive: Regular rate & rhythm, No murmur, No gallop. negative: Irregularly irregular, Extrasystoles, Tachycardia, Bradycardia, JVD present, Systolic murmur, Diastolic murmur Peripheral Pulses: positive: 2+ Abdomen: positive: Non-tender, No organomegaly, Nml bowel sounds, No distention. negative: Tenderness, Guarding, Rebound Back: positive: Nml inspection. negative: CVA tenderness (R), CVA tenderness (L) Skin: positive: Color nml, No rash, Warm, Dry, Cyanosis. negative: Diaphoresis, Pallor, Skin rash Extremities: positive: Non-tender, Full ROM, Nml appearance. negative: Calf tenderness, Joint swelling, Reece's sign/cords Neurologic/Psychiatric: positive: Oriented x3, Sensation nml, Mood/affect nml. negative: Weakness, Sensory loss, Facial droop, Slurred/abnml speech, Depressed mood/affect Conclusion/Plan - Problem List (1) Syncope Conclusion/Plan: pt has recurrence of syncope, unknown etiology, pt did not have hx of seizure order tele, vital monitor, EKG PRN ECHO and us of Carotid, will follow up Qualifiers: Syncope type: unspecified Qualified Code(s): R55 - Syncope and collapse (2) Afib Conclusion/Plan: pt has hx of afib on Coumadin. HR is stable continue home meds Coumadin, check INR daily continue Sotalol tele and vital monitor (3) HTN (hypertension) Conclusion/Plan: stable, restore home BP meds vital monitor (4) Hx of coronary artery disease Conclusion/Plan: pt has hx of [place], pt denies chest pain, continue check troponin tele, vital monitor (5) HLD (hyperlipidemia) Conclusion/Plan: stable, restore home Statin (6) Depression Conclusion/Plan: stable, continue home meds Citalopram (7) DVT prophylaxis Conclusion/Plan: SCD (8) Do not intubate, cardiopulmonary resuscitation (CPR)-only code status Conclusion/Plan: pt request DNR - Lab Results Fish Bones: 04/15/18 09:30 04/15/18 09:30 Core Measures - Anticipated LOS I expect patient to be DC'd or transferred within 96 hours.: Yes - DVT/VTE - Prophylaxis VTE/DVT Device ordered at admit?: Yes
[2018-04-15] MEDS ORDERED: WARFARIN 5 MG TABLET PO SCH (14:00)
[2018-04-15] MEDS ORDERED: SODIUM CHLORIDE 0.9% 1,000 ML IV SCH (17:00)
[2018-04-15] MEDS: SOTALOL 80 MG TABLET PO SCH (20:06)
[2018-04-15] MEDS: GABAPENTIN 300 MG CAPSULE PO SCH (20:06)
[2018-04-15] MEDS: SODIUM CHLORIDE FLUSH 0.9% 10 ML SYRINGE IVP SCH ×2 (20:06→20:15)
[2018-04-15] MEDS: FAMOTIDINE 20 MG TABLET PO SCH (20:07)
[2018-04-15] MEDS ORDERED: ATORVASTATIN 10 MG TABLET PO SCH (21:00)
[2018-04-15] MEDS: ACETAMINOPHEN 325 MG TABLET PO PRN (22:07)
--- NOTE | 2018-04-16 01:52 | Ultrasound Report ---
Reason: syncope Procedure Date: 04/15/2018 Accession Number: [id number] / [id number] Procedure: US - Carotid Doppler Complete CPT Code: FULL RESULT: EXAM: BILATERAL CAROTID AND VERTEBRAL ARTERY DUPLEX DOPPLER ULTRASOUND: EXAM DATE: 04/15/2018 09:56 PM CLINICAL HISTORY: Syncope. COMPARISON: None. TECHNIQUE: Grayscale imaging, color Doppler, and duplex spectral Doppler were used to evaluate the carotid and vertebral arteries bilaterally. Static images were obtained. FINDINGS: Grayscale evaluation demonstrates mild calcified plaque at the carotid bulbs and through the internal carotid arteries. Peak systolic velocities are within normal limits bilaterally. Normal antegrade flow is present in bilateral vertebral arteries. Doppler waveforms occurring at irregular intervals. VELOCITIES: Right: CCA Mid: PSV 80.9 cm/sec. CCA Dist: PSV 76.4 cm/sec. ICA Prox: PSV 55.6 cm/sec, EDV 13.3 cm/sec. ICA Mid: PSV 65.1 cm/sec, EDV 19.6 cm/sec. ICA Dist: PSV 74.5 cm/sec, EDV 19.6 cm/sec. ECA: PSV 68.9 cm/sec. Vertebral Artery: PSV 63.2 cm/sec. RVA flow direction: Antegrade. ICA/CCA Ratio: 0.7. Left: CCA Mid: PSV 82 cm/sec. CCA Dist: PSV 56.9 cm/sec. ICA Prox: PSV 40.6 cm/sec, EDV 13 cm/sec. ICA Mid: PSV 73.6 cm/sec, EDV 14.6 cm/sec. ICA Dist: PSV 76.4 cm/sec, EDV 21.1 cm/sec. ECA: PSV 96.6 cm/sec. Vertebral Artery: PSV 79.6 cm/sec. LVA flow direction: Antegrade. ICA/CCA Ratio: 0.7. ICA diameter stenosis: Right: <50% by velocity and <70% by NASCET criteria. Left: <50% by velocity and <70% by NASCET criteria. IMPRESSION: 1. Mild bilateral carotid bulb and internal carotid artery atheromatous plaque with no hemodynamically significant stenosis. 2. Cardiac arrhythmia. RADIA
[2018-04-16 05:33] LABS: EOSINOPHILS # (AUTO) 0.2 10^3/uL (0.0-0.7); EOSINOPHILS % (AUTO) 4.9 %; HGB - HEMOGLOBIN 12.9 g/dL (12.0-16.0); LYMPHOCYTES # (AUTO) 1.1 10^3/uL (1.5-3.5); LYMPHOCYTES % (AUTO) 25.7 %; MEAN CORPUSCULAR HEMOGLOBIN 31.3 pg (27.0-31.0); MEAN CORPUSCULAR HGB CONC 33.6 g/dL (32.0-36.0); MEAN CORPUSCULAR VOLUME 93.2 fL (81.0-99.0); MEAN PLATELET VOLUME 8.8 fL (7.9-10.8); MONOCYTES # (AUTO) 0.4 10^3/uL (0.0-1.0); MONOCYTES % (AUTO) 10.6 %; NEUTROPHILS # (AUTO) 2.4 10^3/uL (1.5-6.6); NEUTROPHILS % (AUTO) 57.8 %; PLT - PLATELET COUNT 92 10^3/uL (130-450); RED BLOOD COUNT 4.12 10^6/uL (4.20-5.40); RED CELL DISTRIBUTION WIDTH 14.5 % (12.0-15.0); WHITE BLOOD COUNT 4.1 x10^3/uL (4.8-10.8)
[2018-04-16 05:36] LABS: INR 3.3 (0.8-1.2); PT - PROTHROMBIN TIME 35.5 secs (9.9-12.6)
[2018-04-16 05:46] LABS: ALBUMIN 3.4 g/dL (3.2-5.5); ALBUMIN/GLOBULIN RATIO 1.2 (1.0-2.2); BILIRUBIN,TOTAL 0.9 mg/dL (0.2-1.0); CALCIUM 8.7 mg/dL (8.5-10.3); CREATININE 0.8 mg/dL (0.4-1.0); MAGNESIUM 1.9 mg/dL (1.7-2.8); TOTAL PROTEIN 6.2 g/dL (6.7-8.2)
[2018-04-16 06:56] VITALS: BP 139/64
[2018-04-16] MEDS: ACETAMINOPHEN 325 MG TABLET PO PRN (07:04)
[2018-04-16] MEDS ORDERED: ENOXAPARIN 40 MG/0.4 ML SYRINGE SUBQ SCH (09:00)
[2018-04-16] MEDS ORDERED: DONEPEZIL 5 MG TABLET PO SCH (09:00)
[2018-04-16] MEDS ORDERED: CITALOPRAM 10 MG TABLET PO SCH (09:00)
[2018-04-16] MEDS ORDERED: LISINOPRIL 5 MG TABLET PO SCH (09:00)
[2018-04-16] MEDS ORDERED: POLYETHYLENE GLYCOL 3350 17 GM PACKET PO SCH (09:00)
[2018-04-16] MEDS: GABAPENTIN 300 MG CAPSULE PO SCH (09:07)
[2018-04-16] MEDS: FAMOTIDINE 20 MG TABLET PO SCH (09:07)
[2018-04-16] MEDS: SOTALOL 80 MG TABLET PO SCH (09:07)
[2018-04-16] MEDS: SODIUM CHLORIDE FLUSH 0.9% 10 ML SYRINGE IVP SCH (09:07)
--- NOTE | 2018-04-16 11:38 | Discharge Plan ---
Discharge Plan Disposition: 01 Home, Self Care Condition: Good Diet: Regular Activity Restrictions: No Restrictions Shower Restrictions: No Driving Restrictions: Yes Weight Bearing: Full Weight Additional Instructions or Follow Up instructions: You were admitted for syncope and underwent a head CT that showed no abnormalities or bleeding. An echocardiogram was completed and preliminary results show a normal EF of 60- 65%, although, also shows a condition called Cor Pulmonale. This means that the right side of your heart is enlarged and there is abnormally high pressures. The first course of action is to make sure you do not have sleep apnea, by undergoing a sleep study. If this is found not to be the case, there is a medications called Spironolactone which is preferred treatment. Your INR today was just a little high at 3.3, so do not take your Warfarin today. Resume tomorrow. Please see your primary care provider within one week. No Smoking: If you smoke, Please STOP! Call for help. Follow-up with: Dedrick Randle MD [Primary Care Provider] -
[2018-04-16] MEDS ORDERED: ACETAMINOPHEN 325 MG TABLET PO ONE (11:55)
--- NOTE | 2018-04-16 11:57 | DISCHARGE SUMMARY ---
Discharge Summary Admit Date: 04/15/18 Discharge Date: 04/16/18 Discharging Provider: CRISSY Wei Primary Care Provider: Gabriel Randle Code Status: Do Not Attempt Resuscitation Condition at Discharge: Good Discharge Disposition: 01 Home, Self Care - DIAGNOSES Admission Diagnoses: Syncope and collapse (R55) Unspecified atrial fibrillation (I48.91) Essential (primary) hypertension (I10) Hyperlipidemia, unspecified (E78.5) Major depressive disorder, single episode, unspecified (F32.9) Personal history of other diseases of the circulatory system (Z86.79) Discharge Diagnoses with Status of Each Condition: Syncope (R55) stable, CVA ruled out. Cor pulmonale (I27.81) new on this admit. History of CVA (cerebrovascular accident) (Z86.73) chronic, stable. Afib (I48.91) chronic, stable. HTN (hypertension) (I10) chronic, stable. HLD (hyperlipidemia) (E78.5) chronic, stable. Depression (F32.9) chronic, stable. Hx of coronary artery disease (Z86.79) chronic, stable. - HPI History of Present Illness: Gayathri Salguero (Peg) is a 75 year old female with a past medical history of atrial fibrillation on Coumadin, hx of CVA, syncope, HTN, hyperlipidemia, CAD, depression, anxiety, and chronic lower back pain. She presented to the ED via EMS after her found her slumped over in the bathroom; primary complaint of syncope. The patient states that she had very little warning prior to this fall as she felt lightheaded and dizzy. She was arousable but had a second episode of slumping, which led to her calling 911. The patient is thought to have lost consciousness in this episode. The patient's only injury was her lower back and she complained of pain. Xray of spine and pelvis indicated no acute fractures. A head CT revealed no acute findings. The patient denied chest pain, fever, chills, or shortness of breath. A troponin was negative x3, EKG is without significant change and the the patient was admitted to the observation unit for a syncope workup. - HOSPITAL COURSE Hospital Course: (1) Syncope This is not the first episode of syncope as per the patient's report. She de nies any history of seizures, but did state that she has had "multiple strokes" in the past leaving her with short term memory loss, and decreased judgment. She is neuro-intact upon exam. Prior to discharge she underwent a physical therapy evaluation, who did not recommend a higher level of care or a change in ambulation devices. She did not have any significant stenoses as per her carotid doppler report and her head CT did not show any evidence of infarct or bleeding. This condition is in stable condition upon discharge and she was on her way to see her previously scheduled PCP today. (2) Afib The patient has a long history of this and is rate controlled with Sotalol, anticoagulated with Warfarin. Prior to discharge, she was told of her INR value being a bit elevated at 3.3 today, so she was to hold her daily coumadin. She is to follow up with her PCP. (3) HTN (hypertension) The patient's blood pressure was stable, and she was kept on her usual home meds. (4) Hx of coronary artery disease The patient admits to a history of MIs. She denied chest pain during this stay, except for her right rib cage related to her fall. She had serial troponins that were all negative. (5) HLD (hyperlipidemia) The patient remained on her usual dose of her home statin and this condition is stable. (6) Depression The patient is prescribed Citalopram at home, which was continued while she was in the hospital. (7) Cor Pulmonale The patient had preliminary echo results showing cor pulmonale as her RV and RA were enlarged, with an elevated RVSP at rest of 78 mmHg. The patient was encouraged to undergo a sleep study as a first line recommendation and should establish a technical operations vice president in the near future. Disposition: The patient was kept in observation for her hospital stay. She underwent the usual syncope work up in which there was no true one identifiable cause of her syncope. She was unaware of her right sided heart abnormalities, and this may be the most likely cause of her episode as she may have been slightly dehydrated, causing a lack of blood flow to her brain for a very short time. - ALLERGIES Allergies/Adverse Reactions: Allergies Allergy/AdvReac Type Severity Reaction Status Date / Time Penicillins Allergy Unknown Verified 11/19/15 19:33 - MEDICATIONS Home Medications: Ambulatory Orders Medication Instructions Recorded Confirmed Gabapentin [Neurontin] 300 mg PO BID 08/08/13 04/15/18 Lisinopril [Prinivil] 10 mg PO DAILY 08/08/13 04/15/18 Simvastatin [Zocor] 10 mg PO HS 08/08/13 04/15/18 Sotalol [Betapace] 160 mg PO BID 08/08/13 04/15/18 Warfarin [Coumadin] 5 mg PO 1400 08/08/13 04/15/18 Cefuroxime Axetil [Cefuroxime] 500 mg PO BID 04/15/18 04/15/18 Cholecalciferol (Vitamin D3) 1,000 unit PO DAILY 04/15/18 04/15/18 [Vitamin D3] Citalopram Hydrobromide 10 mg PO DAILY 04/15/18 04/15/18 [Citalopram HBr] Donepezil HCl 10 mg PO DAILY 04/15/18 04/15/18 Oxycodone HCl/Acetaminophen 1 tab PO Q4H PRN 04/15/18 04/15/18 [Oxycodone-Acetaminophen 5-325] - PHYSICAL EXAM AT DISCHARGE General Appearance: positive: No acute distress, Alert Eyes Bilateral: positive: Normal inspection, PERRL ENT: positive: ENT inspection nml, Pharynx nml, No signs of dehydration Neck: positive: Nml inspection, Thyroid nml, No JVD, Trachea midline Respiratory: positive: Chest non-tender, No respiratory distress, Breath sounds nml Cardiovascular: positive: No gallop, Irregularly irregular, Systolic murmur Peripheral Pulses: positive: 2+ Abdomen: positive: Non-tender, No organomegaly, Nml bowel sounds, Other (rounded, soft) Back: positive: Nml inspection Skin: positive: No rash, Warm, Dry Extremities: positive: Non-tender, Full ROM, Nml appearance, No pedal edema Neurologic/Psychiatric: positive: Oriented x3, CN's nml (2-12), Motor nml, Sensation nml, Mood/affect nml Reflexes: Bicep (R): 3+, Bicep (L): 3+ - LABS Result Diagrams: 04/16/18 05:07 04/16/18 05:07 - DIAGNOSTIC IMAGING Diagnostic Imaging Results: Prelim report reviewed, Final report reviewed Diagnostic Imaging Results Comments: EXAM: CHEST RADIOGRAPHY EXAM DATE: 04/15/2018 10:04 AM. IMPRESSION: Limited stable examination with no acute cardiopulmonary abnormality. EXAM: PELVIS RADIOGRAPHY EXAM DATE: 04/15/2018 10:04 AM. IMPRESSION: Interval vance- left femoral fracture which appears to have healed. Finding is new compared to 11/27/2009 but appears similar to 2014 CT. No definite acute fracture or dislocation. EXAM: LUMBOSACRAL SPINE RADIOGRAPHY EXAM DATE: 04/15/2018 10:04 AM. IMPRESSION: Limited evaluation with degenerative changes identified. EXAM: CT HEAD EXAM DATE: 04/15/2018 10:14 AM. IMPRESSION: No acute intracranial abnormality. EXAM: BILATERAL CAROTID AND VERTEBRAL ARTERY DUPLEX DOPPLER ULTRASOUND: EXAM DATE: 04/15/2018 09:56 PM IMPRESSION: 1. Mild bilateral carotid bulb and internal carotid artery atheromatous plaque with no hemodynamically significant stenosis. 2. Cardiac arrhythmia. ECHO- Final is pending, preliminary showed an elevated RVSP at rest of 78 mmHg, and enlarged RV and RA. - FOLLOW UP Follow Up: Disposition: Home, Self Care Condition: Good Diet: Regular Activity Restrictions: No Restrictions Shower Restrictions: No Driving Restrictions: Yes Weight Bearing: Full Weight Additional Instructions or Follow Up instructions: You were admitted for syncope and underwent a head CT that showed no abnormaliti es or bleeding. An echocardiogram was completed and preliminary results show a normal EF of 60-65%, although, also shows a condition called Cor Pulmonale. This means that the right side of your heart is enlarged and there is abnormally high pressures. The first course of action is to make sure you do not have sleep apnea, by undergoing a sleep study. If this is found not to be the case, there is a medications called Spironolactone which is preferred treatment. Your INR today was just a little high at 3.3, so do not take your Warfarin today. Resume tomorrow. Please see your primary care provider within one week. - TIME SPENT Time Spent in Discharge (Minutes): 55
[2018-04-16] MEDS ORDERED: CEFUROXIME AXETIL 500 MG PO SCH (21:00)
[2018-04-17] MEDS ORDERED: NON FORMULARY MED (Cholecalciferol (Vitamin D3) [Vitamin D3] 1,000 UNIT) PO SCH (09:00)
== END 2018-04-16 12:06 | disposition home or self-care (01) ==
LOC: EDUNIT# → ED 09:28 → MS3 12:53
PROVIDERS: ADMIT Nurse Practitioner Gerontology; ATTEND Nurse Practitioner
DX: R55 Syncope and collapse (principal); I27.81 Cor pulmonale (chronic); I69.311 Memory deficit following cerebral infarction; I48.0 Paroxysmal atrial fibrillation; Z79.01 Long term (current) use of anticoagulants; I10 Essential (primary) hypertension; R07.89 Other chest pain; E78.5 Hyperlipidemia, unspecified; F32.9 Major depressive disorder, single episode, unspecified; I25.10 Atherosclerotic heart disease of native coronary artery without angina pectoris; I25.2 Old myocardial infarction; M54.5 Low back pain; F41.9 Anxiety disorder, unspecified; R94.31 Abnormal electrocardiogram [ECG] [EKG]; W18.30XA Fall on same level, unspecified, initial encounter; Y92.012 Bathroom of single-family (private) house as the place of occurrence of the external cause; Z66 Do not resuscitate
CPT/HCPCS: 36415; 70450; 71045; 72100; 72170; 80048; 80053; 83735; 84484; 85025; 85610; 93005; 93306; 93880; 96360; 96361; 97161; 99284; A9270; G0378; G8978; G8979; G8980

== ENCOUNTER 2018-04-25 10:35 | Outpatient (CLI) | payer MEDICARE | END 2018-04-25 10:36 | disposition home or self-care (01) | LOC: LAB.F 10:35 | PROVIDERS: ATTEND Family Medicine | DX: I48.91 Unspecified atrial fibrillation (principal); I63.9 Cerebral infarction, unspecified; Z79.01 Long term (current) use of anticoagulants | CPT/HCPCS: 85610 ==

== ENCOUNTER 2018-05-02 10:23 | Outpatient (CLI) | payer MEDICARE | END 2018-05-02 10:24 | disposition home or self-care (01) | LOC: LAB.F 10:23 | PROVIDERS: ATTEND Family Medicine | DX: Z79.01 Long term (current) use of anticoagulants (principal); I63.9 Cerebral infarction, unspecified; I48.91 Unspecified atrial fibrillation | CPT/HCPCS: 85610 ==

== ENCOUNTER 2018-06-11 09:06 | Outpatient (CLI) | payer MEDICARE | END 2018-06-11 09:07 | disposition home or self-care (01) | LOC: LAB.F 09:06 | PROVIDERS: ATTEND Family Medicine | DX: Z79.01 Long term (current) use of anticoagulants (principal); I63.9 Cerebral infarction, unspecified; I48.91 Unspecified atrial fibrillation | CPT/HCPCS: 85610 ==

== ENCOUNTER 2018-07-05 10:08 | Outpatient (CLI) | payer MEDICARE | END 2018-07-05 10:09 | disposition home or self-care (01) | LOC: LAB.F 10:08 | PROVIDERS: ATTEND Family Medicine | DX: I48.91 Unspecified atrial fibrillation (principal); Z79.01 Long term (current) use of anticoagulants | CPT/HCPCS: 85610 ==

== ENCOUNTER 2018-07-17 14:33 | Outpatient (CLI) | payer MEDICARE | END 2018-07-17 14:34 | disposition home or self-care (01) | LOC: LAB.F 14:33 | PROVIDERS: ATTEND Family Medicine | DX: I63.9 Cerebral infarction, unspecified (principal); I48.91 Unspecified atrial fibrillation; Z79.01 Long term (current) use of anticoagulants | CPT/HCPCS: 85610 ==

== ENCOUNTER 2018-08-13 13:06 | Outpatient (CLI) | payer MEDICARE | END 2018-08-13 13:07 | disposition home or self-care (01) | LOC: LAB.F 13:06 | PROVIDERS: ATTEND Family Medicine | DX: Z79.01 Long term (current) use of anticoagulants (principal); I63.9 Cerebral infarction, unspecified; I48.91 Unspecified atrial fibrillation | CPT/HCPCS: 85610 ==

== ENCOUNTER 2018-09-09 11:24 | Outpatient (CLI) | payer MEDICARE | END 2018-09-09 11:25 | disposition home or self-care (01) | LOC: LAB.F 11:24 | PROVIDERS: ATTEND Family Medicine | DX: I48.91 Unspecified atrial fibrillation (principal); I63.9 Cerebral infarction, unspecified; Z79.01 Long term (current) use of anticoagulants | CPT/HCPCS: 85610 ==

== ENCOUNTER 2018-10-01 09:44 | Outpatient (CLI) | payer MEDICARE | END 2018-10-01 09:45 | disposition home or self-care (01) | LOC: LAB.F 09:44 | PROVIDERS: ATTEND Family Medicine | DX: I48.91 Unspecified atrial fibrillation (principal); I63.9 Cerebral infarction, unspecified; Z79.01 Long term (current) use of anticoagulants | CPT/HCPCS: 85610 ==

== ENCOUNTER 2018-10-29 09:40 | Outpatient (CLI) | payer MEDICARE | END 2018-10-29 09:41 | disposition home or self-care (01) | LOC: LAB.F 09:40 | PROVIDERS: ATTEND Family Medicine | DX: I63.9 Cerebral infarction, unspecified (principal); I48.91 Unspecified atrial fibrillation; Z79.01 Long term (current) use of anticoagulants | CPT/HCPCS: 85610 ==

== ENCOUNTER 2018-11-22 10:02 | Outpatient (CLI) | payer MEDICARE | END 2018-11-22 10:03 | disposition home or self-care (01) | LOC: LAB.F 10:02 | PROVIDERS: ATTEND Family Medicine | DX: I48.91 Unspecified atrial fibrillation (principal); Z79.01 Long term (current) use of anticoagulants | CPT/HCPCS: 85610 ==

== ENCOUNTER 2018-12-20 10:30 | Outpatient (CLI) | payer MEDICARE | END 2018-12-20 10:31 | disposition home or self-care (01) | LOC: LAB.F 10:30 | PROVIDERS: ATTEND Family Medicine | DX: Z79.01 Long term (current) use of anticoagulants (principal); I48.91 Unspecified atrial fibrillation | CPT/HCPCS: 85610 ==

== ENCOUNTER 2018-12-26 09:00 | Outpatient (CLI) | payer MEDICARE ==
[2018-12-26 17:55] LABS: BASOPHILS % (AUTO) 0.8 %; EOSINOPHILS # (AUTO) 0.2 10^3/uL (0.0-0.7); EOSINOPHILS % (AUTO) 5.9 %; LYMPHOCYTES # (AUTO) 1.3 10^3/uL (1.5-3.5); LYMPHOCYTES % (AUTO) 33.5 %; MEAN CORPUSCULAR HEMOGLOBIN 30.7 pg (27.0-31.0); MEAN CORPUSCULAR HGB CONC 30.1 g/dL (32.0-36.0); MEAN CORPUSCULAR VOLUME 101.9 fL (81.0-99.0); MEAN PLATELET VOLUME 12.2 fL (7.9-10.8); MONOCYTES # (AUTO) 0.3 10^3/uL (0.0-1.0); MONOCYTES % (AUTO) 7.5 %; NEUTROPHILS % (AUTO) 52.3 %; PLT - PLATELET COUNT 118 10^3/uL (130-450); RED BLOOD COUNT 4.24 10^6/uL (4.20-5.40); RED CELL DISTRIBUTION WIDTH 15.3 % (12.0-15.0); WHITE BLOOD COUNT 3.9 x10^3/uL (4.8-10.8)
[2018-12-26 18:58] LABS: ALBUMIN 3.7 g/dL (3.2-5.5); ALBUMIN/GLOBULIN RATIO 1.1 (1.0-2.2); ALKALINE PHOSPHATASE 71 IU/L (42-121); ALT ALANINE AMINOTRANSFERASE 23 IU/L (10-60); AST ASPARTATE AMINOTRANSFERASE 32 IU/L (10-42); BILIRUBIN,TOTAL 0.5 mg/dL (0.2-1.0); BUN - BLOOD UREA NITROGEN 31 mg/dL (6-20); CALCIUM 9.5 mg/dL (8.5-10.3); CARBON DIOXIDE - CO2 28 mmol/L (21-32); CHLORIDE 105 mmol/L (101-111); CHOL/HDL RATIO 2.6 (<4.4); CHOLESTEROL 169 mg/dL; CREATININE 0.8 mg/dL (0.4-1.0); GFR - MDRD 70 (>89); GLUCOSE 116 mg/dL (70-100); HDL CHOLESTEROL 64 mg/dL; LDL CHOLESTEROL,CALCULATED 93 mg/dL; LDL/HDL RATIO 1.5 (<4.4); SODIUM 141 mmol/L (135-145); VLDL CHOLESTEROL 12 mg/dL
== END 2018-12-26 23:59 | disposition home or self-care (01) ==
LOC: LAB.F 09:00
PROVIDERS: ATTEND Family Medicine
DX: I48.91 Unspecified atrial fibrillation (principal)
CPT/HCPCS: 36415; 80053; 80061; 83721; 84443; 85025

== ENCOUNTER 2019-01-20 10:00 | Outpatient (CLI) | payer MEDICARE | END 2019-01-20 10:01 | disposition home or self-care (01) | LOC: LAB.S 10:00 | PROVIDERS: ATTEND Family Medicine | DX: I48.91 Unspecified atrial fibrillation (principal); Z79.01 Long term (current) use of anticoagulants | CPT/HCPCS: 85610 ==

== ENCOUNTER 2019-02-03 11:23 | Outpatient (CLI) | payer MEDICARE ==
[2019-02-03 18:34] LABS: INR 3.9 (0.8-1.2); PT - PROTHROMBIN TIME 43.8 secs (9.9-12.6)
== END 2019-02-03 11:24 | disposition home or self-care (01) ==
LOC: LAB.S 11:23
PROVIDERS: ATTEND Family Medicine
DX: I48.91 Unspecified atrial fibrillation (principal); I63.9 Cerebral infarction, unspecified; Z79.01 Long term (current) use of anticoagulants
CPT/HCPCS: 36415; 85610

== ENCOUNTER 2019-02-16 11:50 | Outpatient (CLI) | payer MEDICARE | END 2019-02-16 11:51 | disposition critical access hospital (66) | LOC: EMS 11:50 | PROVIDERS: ATTEND Surgery | DX: R55 Syncope and collapse (principal); R09.89 Other specified symptoms and signs involving the circulatory and respiratory systems | CPT/HCPCS: A0425; A0427 ==

== ENCOUNTER 2019-02-16 12:06 | Inpatient (IN) | payer MEDICARE ==
--- NOTE | 2019-02-16 12:26 | ED Physician Documentation ---
History of Present Illness - Stated complaint Stated Complaint: SYNCOPAL - Chief complaint Chief Complaint: Neuro - History obtained from History obtained from: Patient, Family - History of Present Illness Timing: Prior to arrival - Additonal information Additional information: Patient is a 78-year-old female with history of CVA, CAD, hypertension, hyperlipidemia, A. fib, and recurrent syncope anticoagulated with warfarin presenting with recurrence of syncopal episode just prior to arrival. Patient reports that she was sitting on the toilet and had a syncopal episode, but did not fall off the toilet. confirms this episode. This is very similar to her previous episodes of syncope. Patient's last INR was supratherapeutic at 3.5. Patient and report minimal hydration and oral intake over the past several days and blood glucose upon arrival just over 100. Patient denies any prodromal symptoms or any complaints at this time including headache, neck pain, back pain, vision changes, chest pain, difficulty breathing, productive cough, fever, abdominal pain, nausea, vomiting where changes, or stool changes. No other improving or worsening factors noted. Patient was hospitalized for similar episode in April 2018. Review of Systems Constitutional: denies: Fever Eyes: denies: Loss of vision Cardiac: denies: Chest pain / pressure Respiratory: denies: Dyspnea, Cough GI: denies: Abdominal Pain, Nausea, Vomiting, Diarrhea : denies: Dysuria Musculoskeletal: denies: Neck pain, Back pain Neurologic: reports: Syncope. denies: Focal weakness, Numbness, Headache, Head injury PD PAST MEDICAL HISTORY - Past Medical History Past Medical History: Yes Cardiovascular: Hypertension, High cholesterol, NE, Atrial fibrillation Respiratory: None Neuro: CVA Endocrine/Autoimmune: None GI: None : None HEENT: Chronic vision loss, Chronic hearing loss Psych: Depression, Anxiety Musculoskeletal: Other Derm: None - Past Surgical History Past Surgical History: Yes Ortho: Hip replacement HEENT: Tonsil/Adenoidectomy - Present Medications Home Medications: Ambulatory Orders Medication Instructions Recorded Confirmed Gabapentin [Neurontin] 300 mg PO BID 08/08/13 04/15/18 Lisinopril [Prinivil] 10 mg PO DAILY 08/08/13 04/15/18 Simvastatin [Zocor] 10 mg PO HS 08/08/13 04/15/18 Sotalol [Betapace] 160 mg PO BID 08/08/13 04/15/18 Warfarin [Coumadin] 5 mg PO 1400 08/08/13 04/15/18 Cefuroxime Axetil [Cefuroxime] 500 mg PO BID 04/15/18 04/15/18 Cholecalciferol (Vitamin D3) 1,000 unit PO DAILY 04/15/18 04/15/18 [Vitamin D3] Citalopram Hydrobromide 10 mg PO DAILY 04/15/18 04/15/18 [Citalopram HBr] Donepezil HCl 10 mg PO DAILY 04/15/18 04/15/18 - Allergies Allergies/Adverse Reactions: Allergies Allergy/AdvReac Type Severity Reaction Status Date / Time Penicillins Allergy Unknown Verified 02/16/19 12:14 - Social History Does the pt smoke?: No Smoking Status: Never smoker Does the pt drink ETOH?: No Does the pt have substance abuse?: No - Immunizations Immunizations are current?: Yes - POLST Patient has POLST: No POLST Status: DNR PD ED PE NORMAL - Vitals Vital signs reviewed: Yes - General General: Alert and oriented X 3, No acute distress, Well developed/nourished - HEENT HEENT: Atraumatic, PERRL (No nystagmus. Gross visual acuity intact.), EOMI, Moist mucous membranes, Pharynx benign, Dentition benign - Neck Neck: Supple, no meningeal sign - Cardiac Cardiac: No murmur. No: RRR (Irregular) - Respiratory Respiratory: No respiratory distress, Clear bilaterally - Abdomen Abdomen: Soft, Non tender, Non distended - Derm Derm: Normal color, Warm and dry, No rash - Extremities Extremities: No deformity, No tenderness to palpate, No edema - Neuro Neuro: Alert and oriented X 3, No motor deficit, No sensory deficit - Psych Psych: Normal mood Results - Vitals Vitals: Vital Signs - 24 hr 02/16/19 02/16/19 02/16/19 12:07 12:14 12:44 Temperature 36.4 C L Heart Rate 120 H 116 H 83 Heart Rate [ Sitting] Heart Rate [ Standing] Heart Rate [ Supine] Respiratory 16 18 16 Rate Blood Pressure 90/55 L 99/47 L 166/71 H Blood Pressure [Sitting] Blood Pressure [Standing] Blood Pressure [Supine] O2 Saturation 94 97 97 02/16/19 02/16/19 13:11 14:34 Temperature 36.4 C L Heart Rate 59 L Heart Rate [ 70 Sitting] Heart Rate [ 88 Standing] Heart Rate [ 63 Supine] Respiratory 14 Rate Blood Pressure 102/60 Blood Pressure 86/55 L [Sitting] Blood Pressure 85/58 L [Standing] Blood Pressure 97/52 L [Supine] O2 Saturation 97 Oxygen O2 Source Room air - EKG (time done) 1208 Rate: Rate (enter#) (88) Rhythm: Other (Bigeminy with tachycardia) Intervals: Prolonged QT Ischemia: Non specific changes 1445 Rate: Rate (enter#) (54) Rhythm: NSR, Other (Bigeminy) Intervals: Prolonged QT, RBBB - Labs Labs: Laboratory Tests 02/16/19 02/16/19 02/16/19 13:20 13:45 13:45 WBC 6.4 RBC 4.23 Hgb 13.4 Hct 42.5 MCV 100.5 H MCH 31.7 H MCHC 31.5 L RDW 14.5 Plt Count 102 L MPV 10.7 Neut # (Auto) 5.1 Lymph # (Auto) 0.9 L A[place] # (Auto) 0.4 Eos # (Auto) 0.0 Baso # (Auto) 0.0 Absolute Nucleated RBC 0.00 Nucleated RBC % 0.0 PT 56.2 H INR 5.1 H* Sodium Potassium Chloride Carbon Dioxide Anion Gap BUN Creatinine Estimated GFR (MDRD) Glucose Calcium Total Bilirubin AST ALT Alkaline Phosphatase Troponin I High Sens Total Protein Albumin Globulin Albumin/Globulin Ratio Lipase TSH Urine Color YELLOW Urine Clarity CLEAR Urine pH 5.5 Ur Specific [place] 1.025 Urine Protein 30 H Urine Glucose (UA) NEGATIVE Urine Ketones 40 H Urine Occult Blood NEGATIVE Urine Nitrite NEGATIVE Urine Bilirubin NEGATIVE Urine Urobilinogen 0.2 (NORMAL) Ur Leukocyte Esterase NEGATIVE Urine RBC 0-5 Urine WBC 0-3 Ur Squamous Epith Cells RARE Squamous Urine Bacteria Moderate H Ur Microscopic Review INDICATED Urine Culture Comments INDICATED 02/16/19 02/16/19 02/16/19 13:45 13:45 13:45 WBC RBC Hgb Hct MCV MCH MCHC RDW Plt Count MPV Neut # (Auto) Lymph # (Auto) [place] # (Auto) Eos # (Auto) Baso # (Auto) Absolute Nucleated RBC Nucleated RBC % PT INR Sodium 142 Potassium 4.4 Chloride 106 Carbon Dioxide 22 Anion Gap 14.0 H BUN 19 Creatinine 1.1 H Estimated GFR (MDRD) 48 L Glucose 111 H Calcium 8.9 Total Bilirubin 0.8 AST 28 ALT 20 Alkaline Phosphatase 43 Troponin I High Sens 27.9 H* Total Protein 6.5 L Albumin 3.4 Globulin 3.1 Albumin/Globulin Ratio 1.1 Lipase 23 TSH 2.24 Urine Color Urine Clarity Urine pH Ur Specific [place] Urine Protein Urine Glucose (UA) Urine Ketones Urine Occult Blood Urine Nitrite Urine Bilirubin Urine Urobilinogen Ur Leukocyte Esterase Urine RBC Urine WBC Ur Squamous Epith Cells Urine Bacteria Ur Microscopic Review Urine Culture Comments PD MEDICAL DECISION MAKING - ED course Complexity details: reviewed old records, reviewed results, re-evaluated patient, considered differential, d/w patient, d/w family, d/w finance consultant ED course: Patient presenting after witnessed syncopal episode on the toilet earlier today. Patient denied any significant prodromal symptoms, trauma or injury, or symptoms currently. She otherwise is asymptomatic. Physical exam is extremely benign. Patient started on IV fluids, but did not require medications immediately. CT head obtained which not find evidence of bleed, stroke, or other complication, particular given her recent supratherapeutic warfarin level.Chest x-ray also obtained which returned relatively unremarkable with no signs of rib fracture, pneumothorax, edema, or infection. Screening lab work and urinalysis also returned relatively unremarkable except for supratherapeutic INR at 5.1. Given this elevation and lack of other bleeding, do not feel patient requires immediate reversal, but can hold warfarin.Additionally, troponin returned elevated. Multiple EKGs done during ED stay which did not reveal ischemic changes, however, changes from recent EKG in April 2018 including evidence of bigeminy. At this time, feel that patient would warrant hospitalization and spoke with hospitalist on-call, who is agreeable to this plan. Also discussed results and recommendations with patient and she is amenable to admission.She did receive aspirin in ED. Departure - Departure Disposition: ED Place in Observation Clinical Impression: Syncope
[2019-02-16] MEDS ORDERED: SODIUM CHLORIDE 0.9% 1,000 ML IV ONE (12:32)
--- NOTE | 2019-02-16 13:11 | CT Report ---
Reason: syncope with trauma, on Warfarin, history CVA Procedure Date: 02/16/2019 Accession Number: [id number] / [id number] Procedure: CT - HEAD WO CPT Code: FULL RESULT: EXAM: CT HEAD EXAM DATE: 02/16/2019 12:58 PM. CLINICAL HISTORY: Syncope with trauma, on Warfarin, history CVA. COMPARISON: CT HEAD W/O 04/15/2018 10:[address] HEAD W/O 02/25/2015 3:57 PM. TECHNIQUE: Multiaxial CT images were obtained from the foramen magnum to the vertex. Reformats: Sagittal and coronal. IV contrast: None. In accordance with CT protocol optimization, one or more of the following dose reduction techniques were utilized for this exam: automated exposure control, adjustment of mA and/or KV based on patient size, or use of iterative reconstructive technique. FINDINGS: Parenchyma: No intraparenchymal hemorrhage. No evidence of mass, midline shift, or CT findings of acute infarction. There is unchanged appearance of focal encephalomalacia in the left inferior occipital region adjacent to the occipital horn of the left lateral ventricle, consistent with remote prior infarct. Golden-white differentiation is distinct. Diffuse chronic microangiopathic white matter changes are evident. Extraaxial Spaces: Normal for age. No subdural or epidural collections identified. Ventricles: The ventricles and cortical sulci are enlarged, consistent with age-related tissue loss. Sinuses and orbits: Imaged paranasal sinuses, orbits, and mastoids show no significant abnormality. Bones: No evidence of fracture or calvarial defect. Other: None. IMPRESSION: 1. No intracranial hemorrhage, mass-effect, CT evidence of acute infarct, or other acute intracranial abnormality. 2. Unchanged appearance of remote prior infarct in the left inferior occipital region. 3. Generalized age-related cortical atrophic changes. RADIA
--- NOTE | 2019-02-16 13:24 | XRAY Report ---
Reason: chest pain Procedure Date: 02/16/2019 Accession Number: [id number] / [id number] Procedure: XR - Chest 1 View X-Ray CPT Code: 05815 FULL RESULT: EXAM: CHEST RADIOGRAPHY EXAM DATE: 02/16/2019 01:01 PM. CLINICAL HISTORY: Chest pain. COMPARISON: CHEST 1 VIEW 04/15/2018 9:42 AM. TECHNIQUE: 1 view. FINDINGS: Lungs/Pleura: No focal opacities evident. No pleural effusion. No pneumothorax. Lungs are hyperinflated consulate prior. Mediastinum: There is stable mild enlargement of the cardiac silhouette. There is moderate atherosclerotic calcification of the aortic arch. Other: No acute osseous abnormality. There are degenerative changes of the bilateral glenohumeral joints, right more advanced than left. IMPRESSION: Stable appearance of hyperinflated lungs and mild cardiomegaly. No acute interval change. RADIA
[2019-02-16 13:29] LABS: CLARITY,URINE CLEAR (CLEAR); GLUCOSE, URINE (UA) NEGATIVE (NEGATIVE); KETONES,URINE (UA) 40 mg/dL (NEGATIVE); LEUKOCYTE ESTERASE, URINE NEGATIVE (NEGATIVE); NITRITE,URINE NEGATIVE (NEGATIVE); OCCULT BLOOD,URINE NEGATIVE (NEGATIVE); PH,URINE 5.5 PH (5.0-7.5); PROTEIN,URINE 30 mg/dL (NEGATIVE); UROBILINOGEN,URINE 0.2 (NORMAL) E.U./dL (NORMAL)
[2019-02-16 13:33] LABS: BILIRUBIN,URINE NEGATIVE (NEGATIVE); ICTOTEST,URINE NEGATIVE
[2019-02-16 13:49] LABS: RBC,URINE 0-5 /HPF (0-5); SQUAMOUS EPITHELIAL CELL,UR RARE Squamous (<= Few)
[2019-02-16 13:51] LABS: BACTERIA,URINE Moderate /HPF (None Seen)
[2019-02-16 13:59] LABS: BASOPHILS % (AUTO) 0.2 %; HGB - HEMOGLOBIN 13.4 g/dL (12.0-16.0); LYMPHOCYTES # (AUTO) 0.9 10^3/uL (1.5-3.5); LYMPHOCYTES % (AUTO) 13.3 %; MEAN CORPUSCULAR HEMOGLOBIN 31.7 pg (27.0-31.0); MEAN CORPUSCULAR HGB CONC 31.5 g/dL (32.0-36.0); MEAN CORPUSCULAR VOLUME 100.5 fL (81.0-99.0); MEAN PLATELET VOLUME 10.7 fL (7.9-10.8); MONOCYTES # (AUTO) 0.4 10^3/uL (0.0-1.0); MONOCYTES % (AUTO) 6.6 %; NEUTROPHILS # (AUTO) 5.1 10^3/uL (1.5-6.6); NEUTROPHILS % (AUTO) 79.6 %; PLT - PLATELET COUNT 102 10^3/uL (130-450); RED BLOOD COUNT 4.23 10^6/uL (4.20-5.40); RED CELL DISTRIBUTION WIDTH 14.5 % (12.0-15.0); WHITE BLOOD COUNT 6.4 x10^3/uL (4.8-10.8)
[2019-02-16 14:09] LABS: ALBUMIN 3.4 g/dL (3.2-5.5); ALBUMIN/GLOBULIN RATIO 1.1 (1.0-2.2); BILIRUBIN,TOTAL 0.8 mg/dL (0.2-1.0); CALCIUM 8.9 mg/dL (8.5-10.3); CREATININE 1.1 mg/dL (0.4-1.0); TOTAL PROTEIN 6.5 g/dL (6.7-8.2)
[2019-02-16] MEDS ORDERED: ASPIRIN CHEW 81 MG TABLET PO STA (14:40)
[2019-02-16 14:54] LABS: PT - PROTHROMBIN TIME 56.2 secs (9.9-12.6)
[2019-02-16 15:02] LABS: INR 5.1 (0.8-1.2)
[2019-02-16] MEDS ORDERED: SODIUM CHLORIDE FLUSH 0.9% 10 ML SYRINGE IVP PRN (15:03)
[2019-02-16] MEDS ORDERED: ONDANSETRON ODT 4 MG TABLET TL PRN (15:03)
[2019-02-16] MEDS ORDERED: ONDANSETRON 4 MG/2 ML VIAL IVP PRN (15:03)
[2019-02-16 15:07] LABS: PARTIAL THROMBOPLASTIN TIME 46.9 secs (24.9-33.3)
[2019-02-16] MEDS ORDERED: SODIUM CHLORIDE 0.9% 1,000 ML IV SCH ×3 (16:00→16:58)
--- NOTE | 2019-02-16 16:16 | HISTORY & PHYSICAL EXAMINATION ---
Chief Complaint - Chief Complaint Chief Complaint: syncope History of Present Illness - History of Present Illness HPI Comment/Other: Ms. Salguero is a 75 y/o female with a PMH significance for syncope, a fib on Coumadin, hx of CVA, dementia, HTN, HLD, [place], depression and anxiety, chronic lower back pain, chronic hearing loss and chronic vision loss, who present ER for complain of syncope. pt report she did not remember too much what happened to her, she state she had two episode of syncope and she lost of her consciousness when she had syncope. she denies any injury on this two times of syncope. she denies chest pain, palpitations, headache, vision change, fever, chill, shortness of breath, nausea, vomiting, abdominal pain. Per Triage nurse report pt had syncope episode at this morning when she was at toilet, and second syncope happened when she tried to standup. she was found to have low blood pressure at 78/40. pt did report she did not do well for her hydration and did not drink enough water. CXR and CT of head are remarkable. lab work in ER reveals troponin is slight elevated in high sensitive troponin test and supratherapeutic INR at 5.1. Per ER provide's chart, multiple EKGs done during ED ( but did not appear any EKG on [facility]) did not reveal ischemic changes, but it appears evidence of bigeminy. Pt is afebrile, Initially pt had low SBP at 90, now her SBP is over 100. Pt is hemodynamic stable now. pt is admitted for syncope. History - Past Medical History Cardiovascular: reports: Hypertension, High cholesterol, [place], Atrial fibrillation Respiratory: reports: None Neuro: reports: CVA Endocrine/Autoimmune: reports: None GI: reports: None : reports: None HEENT: reports: Chronic vision loss, Chronic hearing loss Psych: reports: Depression, Anxiety Musculoskeletal: reports: Other Derm: reports: None MRSA Hx?: No - Past Surgical History Ortho: reports: Hip replacement HEENT: reports: Tonsil/Adenoidectomy - Family & Social History Family History: Mother: , Father: , CAD, [place] Family History Comment/Other: [facility] , pt had two child, one son and one daughter and had three grandfather. pt report her father from heart attack. her mother from old ago. Social History Notes: pt denies smoking, alcohol and drug problem - POLST Patient has POLST: No POLST Status: DNR Meds/Allgy - Home Medications Home Medications: Ambulatory Orders Medication Instructions Recorded Confirmed Gabapentin [Neurontin] 300 mg PO BID 08/08/13 04/15/18 Lisinopril [Prinivil] 10 mg PO DAILY 08/08/13 04/15/18 Simvastatin [Zocor] 10 mg PO HS 08/08/13 04/15/18 Sotalol [Betapace] 160 mg PO BID 08/08/13 04/15/18 Warfarin [Coumadin] 5 mg PO 1400 08/08/13 04/15/18 Cefuroxime Axetil [Cefuroxime] 500 mg PO BID 04/15/18 04/15/18 Cholecalciferol (Vitamin D3) 1,000 unit PO DAILY 04/15/18 04/15/18 [Vitamin D3] Citalopram Hydrobromide 10 mg PO DAILY 04/15/18 04/15/18 [Citalopram HBr] Donepezil HCl 10 mg PO DAILY 04/15/18 04/15/18 - Allergies Allergies/Adverse Reactions: Allergies Allergy/AdvReac Type Severity Reaction Status Date / Time Penicillins Allergy Unknown Verified 02/16/19 12:14 Review of Systems - Constitutional Constitutional: denies: Fatigue, Fever, Chills, Malaise, Weakness, Poor appetite, Diaphoresis, Night sweats, Weight gain, Weight loss - Eyes Eyes: denies: Pain, Irritation, Amaurosis, Blurred vision, Spots in vision, Field loss, Dipolpia - Ears, Nose & Throat Ears, Nose & Throat: denies: Ear pain, Hearing aids, Vertigo, Nasal pain, Nasal discharge, Nosebleeds, Nasal obstruction, Nasal congestion, Postnasal drainage, Dentures, Sore throat, Hoarseness, Mouth lesions, Bleeding gums, Dental decay - Cardiovascular Cariovascular: reports: Syncope. denies: Irregular heart rate, Palpitations, Chest pain, Edema, Lightheadedness, Exertional dyspnea, Decr. exercise tolerance, Orthopnea - Respiratory Respiratory: denies: Cough, Sputum production, Wheezing, Snoring, Hemoptysis, Orthopnea, SOB at rest, SOB with exertion, Apnea, Stridor - Gastrointestinal Gastrointestinal: denies: Abdominal pain, Abdominal distention, Constipation, Diarrhea, Change in bowel habits, Rectal bleeding, Black stools, Bloody stools, Nausea, Vomiting, Bile emesis, Luis blood emesis - Genitourinary Genitourinary: denies: Dysuria, Frequency, Urgency, Hematuria, Incontinence, Flank pain, Nocturia, Urethral discharge - Musculoskeletal Musculoskeletal: denies: Muscle pain, Back pain, Muscle aches, Stiffness, Limited range of motion, Muscle weakness, Gout, Joint pain - Integumentary Integumentary: denies: Rash, Pruritis, Lesions, Dryness, Lumps, Acne, Pigment changes, Nail changes - Neurological Neurological: reports: Memory problems. denies: General weakness, Focal weakness, Headache, Dizziness, Numbness, Pre-existing deficit, Abnormal gait, Seizures, Incoordination, Slurred speech - Psychiatric Psychiatric: denies: Depression, Anxiety, Suicidal, Delusions, Hallucinations, Homicidal - Endocrine Endocrine: denies: Polyuria, Polydypsia, Polyphagia, Intolerance to cold - Hematologic/Lymphatic Hematologic/Lymphatic: denies: Anemia, Bruising, Petechiae, Blood clots, Lymphadenopathy, Bleeding tendencies, Recurrent infections Exam - Vital Signs Vital Signs: Vital Signs x48h Temp Pulse Pulse Pulse Pulse Pulse Resp 02/16/19 16:00 36.7 C 82 16 02/16/19 14:34 36.4 C L 59 L 14 02/16/19 13:11 70 88 63 02/16/19 12:44 83 16 02/16/19 12:14 116 H 18 02/16/19 12:07 36.4 C L 120 H 16 BP BP BP BP BP Pulse Ox 02/16/19 16:00 104/79 95 02/16/19 14:34 102/60 97 02/16/19 13:11 86/55 L 85/58 L 97/52 L 02/16/19 12:44 166/71 H 97 02/16/19 12:14 99/47 L 97 02/16/19 12:07 90/55 L 94 - Physical Exam General Appearance: positive: No acute distress, Alert. negative: Lethargic Eyes Bilateral: positive: Normal inspection, PERRL, No lid inflammation, Conjunctivae nml ENT: positive: ENT inspection nml, Pharynx nml, No signs of dehydration. negat dmitri: Purulent nasal drainage, Pharyngeal erythema, Oral lesions Neck: positive: Nml inspection, Thyroid nml, Trachea midline. negative: Thyromegaly, Lymphadenopathy (R), Lymphadenopathy (L), Stiff neck, Swelling/bruising, Tracheal deviation Respiratory: positive: Chest non-tender, No respiratory distress, Breath sounds nml. negative: Wheezes, Rales, Rhonchi Cardiovascular: positive: Regular rate & rhythm, No murmur, No gallop. negative: Irregularly irregular, Extrasystoles, Tachycardia, Bradycardia, JVD present, Systolic murmur, Diastolic murmur Peripheral Pulses: positive: 2+ Abdomen: positive: Non-tender, No organomegaly, Nml bowel sounds, No distention. negative: Tenderness, Guarding, Rebound Back: positive: Nml inspection. negative: CVA tenderness (R), CVA tenderness (L) Skin: positive: Color nml, No rash, Warm, Dry. negative: Cyanosis, Diaphoresis, Pallor Extremities: positive: Non-tender, Full ROM, Nml appearance. negative: Calf tenderness, Joint swelling, Reece's sign/cords Neurologic/Psychiatric: positive: Oriented x3, Motor nml, Sensation nml, Mood/affect nml. negative: Weakness, Sensory loss, Facial droop, Slurred/abnml speech, Depressed mood/affect Sepsis Event Note (H) - Evaluation Current Stage of Sepsis: Ruled out Conclusion/Plan - Problem List (1) Syncope Conclusion/Plan: recurrent syncope. Pt has [id number] when she was found to have syncope. pt usually has creatinine at 0.8 but today she had 1.1. pt report she did not drink much water. it is likely caused by hypotension and dehydration. order ECHO tele and EKG hold home BP meds Lisinopril hydration with IVF (2) Dehydration Conclusion/Plan: pt has increase creatinine, report she did not drink enough water. pt has hypotension initially hydration gently with IVF lab and vital monitor (3) Hypotension Conclusion/Plan: hypotension is likely caused by dehydration. hold home BP meds, hydration vital monitor (4) A-fib Conclusion/Plan: pt's HR is good control. pt denies palpitation. INR is high 5.1, hold Coumadin now. daily PT/INR test Qualifiers: Atrial fibrillation type: paroxysmal Qualified Code(s): I48.0 - Paroxysmal atrial fibrillation (5) Elevated troponin Conclusion/Plan: pt denies chest pain, EKG did not indicate ischemic change per ER report.pt has elevated INR. it likely is caused by dehydration and slight increase creatinine level, and kidney function decrease. ER already gave pt 325 mg Aspirin. serial check troponin tele and monitor technician (6) Abnormal EKG Conclusion/Plan: pt has begeminy in EKG per ER provider's chart, but normal person also has benign bigeminy. pt denies chest pain, palpitation, N/V, or diaphoresis. continue tele and monitor technician (7) Elevated INR Conclusion/Plan: hold Coumadin now, and continue PT/INR test (8) Dementia Conclusion/Plan: pt is very forgetful when I interview pt. continue pt's home meds Donepezil after reconcile (9) Do not intubate, cardiopulmonary resuscitation (CPR)-only code status Conclusion/Plan: pt clearly request DNR for her code status - Lab Results Fish Bones: 02/16/19 13:45 02/16/19 13:45 Core Measures - Anticipated LOS I expect patient to be DC'd or transferred within 96 hours.: Yes - DVT/VTE - Prophylaxis VTE/DVT Device ordered at admit?: Yes VTE/DVT Prophylaxis med ordered at admit?: Yes
[2019-02-16] MEDS: SODIUM CHLORIDE FLUSH 0.9% 10 ML SYRINGE IVP SCH (16:37)
[2019-02-16] MEDS: SODIUM CHLORIDE 0.9% 1,000 ML IV SCH (21:30)
[2019-02-16] MEDS: FAMOTIDINE 20 MG TABLET PO SCH (21:30)
[2019-02-16] MEDS: GABAPENTIN 300 MG CAPSULE PO SCH (21:31)
[2019-02-16] MEDS: SOTALOL 80 MG TABLET PO SCH (22:21)
[2019-02-17] MEDS ORDERED: BENZOCAINE/MENTHOL LOZENGE MM PRN (01:02)
[2019-02-17] MEDS: SODIUM CHLORIDE 0.9% 1,000 ML IV SCH (03:46)
[2019-02-17] MEDS: SODIUM CHLORIDE FLUSH 0.9% 10 ML SYRINGE IVP SCH ×4 (05:31→21:23)
[2019-02-17 05:58] LABS: BASOPHILS % (AUTO) 0.4 %; EOSINOPHILS % (AUTO) 0.4 %; HGB - HEMOGLOBIN 12.4 g/dL (12.0-16.0); LYMPHOCYTES # (AUTO) 1.4 10^3/uL (1.5-3.5); LYMPHOCYTES % (AUTO) 30.6 %; MEAN CORPUSCULAR HEMOGLOBIN 30.9 pg (27.0-31.0); MEAN CORPUSCULAR VOLUME 99.8 fL (81.0-99.0); MEAN PLATELET VOLUME 11.2 fL (7.9-10.8); MONOCYTES # (AUTO) 0.6 10^3/uL (0.0-1.0); MONOCYTES % (AUTO) 12.2 %; NEUTROPHILS # (AUTO) 2.6 10^3/uL (1.5-6.6); NEUTROPHILS % (AUTO) 56.2 %; PLT - PLATELET COUNT 95 10^3/uL (130-450); RED BLOOD COUNT 4.01 10^6/uL (4.20-5.40); RED CELL DISTRIBUTION WIDTH 14.8 % (12.0-15.0); WHITE BLOOD COUNT 4.7 x10^3/uL (4.8-10.8)
[2019-02-17 06:06] LABS: CALCIUM 8.3 mg/dL (8.5-10.3); CREATININE 0.8 mg/dL (0.4-1.0)
[2019-02-17 06:20] LABS: PT - PROTHROMBIN TIME 80.2 secs (9.9-12.6)
[2019-02-17 06:29] LABS: INR 7.2 (0.8-1.2)
[2019-02-17] MEDS ORDERED: PHYTONADIONE 10 MG/ML AMP PO ONE (08:06)
[2019-02-17] MEDS ORDERED: CHERRY SYRUP 10 ML UDC PO ONE (08:06)
[2019-02-17] MEDS ORDERED: ENOXAPARIN 40 MG/0.4 ML SYRINGE SUBQ SCH (09:00)
[2019-02-17] MEDS: POLYETHYLENE GLYCOL 3350 17 GM PACKET PO SCH (10:47)
[2019-02-17] MEDS: SOTALOL 80 MG TABLET PO SCH ×2 (10:49→21:43)
[2019-02-17] MEDS: FAMOTIDINE 20 MG TABLET PO SCH ×2 (10:49→21:23)
[2019-02-17] MEDS: CITALOPRAM 10 MG TABLET PO SCH (10:49)
[2019-02-17] MEDS: oxyCODONE 5 MG TABLET PO PRN ×2 (10:49→17:33)
[2019-02-17] MEDS: GABAPENTIN 300 MG CAPSULE PO SCH ×2 (10:50→21:23)
[2019-02-17] MEDS: BENZOCAINE/MENTHOL LOZENGE MM PRN (10:50)
[2019-02-17] MEDS ORDERED: diltiaZEM INJ 5 MG/ML VIAL IVP ONE (12:30)
[2019-02-17] MEDS ORDERED: LORazepam 0.5 MG TABLET PO PRN (13:39)
[2019-02-17] MEDS ORDERED: METOPROLOL SUCCINATE 25 MG TABLET PO SCH (13:43)
[2019-02-17] MEDS ORDERED: METOPROLOL 5 MG/5 ML VIAL IVP PRN (13:45)
[2019-02-17 13:59] LABS: PT - PROTHROMBIN TIME 66.1 secs (9.9-12.6)
[2019-02-17] MEDS ORDERED: cefTRIAXone 1 GM in SODIUM CHLORIDE 0.9% MINIBAG 100 ML IV SCH (14:00)
[2019-02-17] MEDS: ACETAMINOPHEN 325 MG TABLET PO PRN ×2 (14:13→23:47)
--- NOTE | 2019-02-17 14:16 | XRAY Report ---
Reason: fever, SOB Procedure Date: 02/17/2019 Accession Number: [id number] / [id number] Procedure: XR - Chest 1 View X-Ray CPT Code: 68681 FULL RESULT: EXAM: CHEST RADIOGRAPHY EXAM DATE: 02/17/2019 02:03 PM. CLINICAL HISTORY: Fever, SOB. COMPARISON: CHEST 1 VIEW 02/16/2019 12:58 PM. TECHNIQUE: 1 view. FINDINGS: Lungs/Pleura: There is bilateral interstitial prominence without consolidation or pneumothorax. Lung volumes are normal. Mediastinum: Heart size is normal. There is moderate calcification of the thoracic aorta. Other: None. IMPRESSION: 1. Negative for an acute cardiopulmonary abnormality. RADIA
--- NOTE | 2019-02-17 14:20 | PROVIDER PROGRESS NOTE ---
Subjective - Prog Note Date Prog Note Date: 02/17/19 - Subjective Pt reports feeling: No change Subjective: pt report she has lots of anxiety, her is in the ER for stroke. nurse report pt has low degree fever at the morning, and afib with RVR to HR 130. pt denies chest pain, palpitation, SOB Current Medications - Current Medications Current Medications: Active Medications Acetaminophen (Tylenol) 650 mg PO Q4HR PRN PRN Reason: Pain 1 to 4 Last Admin: 02/17/19 14:13 Dose: 650 mg Citalopram Hydrobromide (Celexa) 10 mg PO DAILY [facility] Last Admin: 02/17/19 10:49 Dose: 10 mg Famotidine (Pepcid) 20 mg PO BID [facility] Last Admin: 02/17/19 10:49 Dose: 20 mg Gabapentin (Neurontin) 300 mg PO BID [facility] Last Admin: 02/17/19 10:50 Dose: 300 mg Ceftriaxone Sodium 1 gm/ (Sodium Chloride) 100 mls @ 200 mls/hr IV DAILY [facility] Last Infusion: 02/17/19 14:45 Dose: Infused Lorazepam (Ativan) 0.5 mg PO Q6H PRN PRN Reason: Anxiety Last Admin: 02/17/19 14:14 Dose: 0.5 mg Metoprolol Succinate (Toprol Xl) 25 mg PO DAILY [facility] Last Admin: 02/17/19 14:13 Dose: 25 mg Metoprolol Tartrate (Lopressor Inj) 5 mg IVP Q6H PRN PRN Reason: Hypertensive Emergency Ondansetron HCl (Zofran Inj) 4 mg IVP Q6HR PRN PRN Reason: Nausea / Vomiting Ondansetron HCl (Zofran Odt) 4 mg TL Q6HR PRN PRN Reason: Nausea / Vomiting Oxycodone HCl (Roxicodone) 5 mg PO Q4HR PRN PRN Reason: Pain 5 to 7 Last Admin: 02/17/19 10:49 Dose: 5 mg Polyethylene Glycol (Miralax) 17 gm PO DAILY [facility] Last Admin: 02/17/19 10:47 Dose: 17 gm Sodium Chloride (Normal Saline Flush 0.9%) 10 ml IVP PRN PRN PRN Reason: NEEDED PER PROVIDER ORDERS Sodium Chloride (Normal Saline Flush 0.9%) 10 ml IVP 0100,0900,1700 [facility] Last Admin: 02/17/19 10:50 Dose: 10 ml Sotalol HCl (Betapace) 80 mg PO BID [facility] Last Admin: 02/17/19 10:49 Dose: 80 mg Spironolactone (Aldactone) 12.5 mg PO DAILY [facility] Throat Lozenges (Cepacol) 1 lozenge MM Q2HR PRN PRN Reason: Throat pain Last Admin: 02/17/19 10:50 Dose: 1 lozenge Throat Lozenges (Cepacol) 1 lozenge MM Q2HR PRN PRN Reason: Throat pain Last Admin: 02/17/19 01:18 Dose: 1 lozenge Gabapentin [Neurontin] 300 mg PO BID 08/08/13 Lisinopril [Prinivil] 10 mg PO DAILY 08/08/13 Simvastatin [Zocor] 10 mg PO HS 08/08/13 Sotalol [Betapace] 160 mg PO BID 08/08/13 Warfarin [Coumadin] 5 mg PO 1400 08/08/13 Cefuroxime Axetil [Cefuroxime] 500 mg PO BID 04/15/18 Cholecalciferol (Vitamin D3) [Vitamin D3] 1,000 unit PO DAILY 04/15/18 Citalopram Hydrobromide [Citalopram HBr] 10 mg PO DAILY 04/15/18 Donepezil HCl 10 mg PO DAILY 04/15/18 Objective - Vital Signs/Intake & Output Vital Signs: Vital Signs x48h Temp Pulse Pulse Pulse Pulse Pulse Resp 02/17/19 13:40 37.5 C 130 H 18 02/17/19 13:24 124 H 20 02/17/19 13:05 37.5 C 101 H 18 02/17/19 12:59 102 H 02/17/19 12:55 94 02/17/19 12:00 38.1 C H 162 H 17 02/17/19 09:00 80 81 76 02/17/19 08:00 36.9 C 78 16 BP BP BP BP Pulse Ox 02/17/19 13:40 137/69 H 98 02/17/19 13:24 131/82 H 94 02/17/19 13:05 116/60 93 02/17/19 12:59 129/72 02/17/19 12:55 113/60 02/17/19 12:00 130/96 H 93 02/17/19 09:00 146/68 H 153/73 H 139/61 H 02/17/19 08:00 139/61 H 96 Intake & Output: Intake & Output 02/14/19 02/15/19 02/16/19 02/17/19 23:59 23:59 23:59 23:59 Intake Total 1160 6405.775 Balance 1160 0525.775 - Objective General Appearance: positive: No acute distress, Alert. negative: Lethargic Eyes Bilateral: positive: Normal inspection, PERRL, No lid inflammation, Conjunctivae nml ENT: positive: ENT inspection nml, Pharynx nml, No signs of dehydration. negative: Purulent nasal drainage, Pharyngeal erythema, Oral lesions Neck: positive: Nml inspection, Thyroid nml, No JVD, Trachea midline. negative: Thyromegaly, Lymphadenopathy (R), Lymphadenopathy (L), Stiff neck, Swelling/bruising, Tracheal deviation Respiratory: positive: Chest non-tender, No respiratory distress, Breath sounds nml Cardiovascular: positive: Regular rate & rhythm, No murmur, No gallop, Tachycardia. negative: Irregularly irregular, Extrasystoles, Bradycardia, JVD present, Systolic murmur, Diastolic murmur Peripheral Pulses: 2+ Radial (R), 2+ Radial (L), 2+ Dorsalis pedis (R), 2+ Dorsalis pedis (L) Abdomen: positive: Non-tender, No organomegaly, Nml bowel sounds, No distention. negative: Tenderness, Guarding, Rebound Back: positive: Nml inspection. negative: CVA tenderness (R), CVA tenderness (L) Skin: positive: Color nml, No rash, Warm, Dry. negative: Cyanosis, Diaphoresis, Pallor Extremities: positive: Non-tender, Full ROM, Nml appearance. negative: Calf tenderness, Joint swelling, Reece's sign/cords Neurologic/Psychiatric: positive: Oriented x3, Sensation nml, Mood/affect nml. negative: Weakness, Sensory loss, Facial droop, Slurred/abnml speech, Depressed mood/affect - Lab Results Fish Bones: 02/17/19 05:28 02/17/19 05:28 Other Labs: Lab Results x24hrs 02/17/19 02/17/19 02/17/19 Range/Units 13:40 05:28 05:28 WBC (4.8-10.8) x10^3/uL RBC (4.20-5.40) 10^6/uL Hgb (12.0-16.0) g/dL Hct (37.0-47.0) % MCV (81.0-99.0) fL MCH (27.0-31.0) pg MCHC (32.0-36.0) g/dL RDW (12.0-15.0) % Plt Count (130-450) 10^3/uL MPV (7.9-10.8) fL Neut # (Auto) (1.5-6.6) 10^3/uL Lymph # (Auto) (1.5-3.5) 10^3/uL [place] # (Auto) (0.0-1.0) 10^3/uL Eos # (Auto) (0.0-0.7) 10^3/uL Baso # (Auto) (0.0-0.1) 10^3/uL Absolute Nucleated RBC x10^3/uL Nucleated RBC % /100WBC PT 66.1 H 80.2 H (9.9-12.6) secs INR 6.0 H* 7.2 H* (0.8-1.2) APTT (24.9-33.3) secs Sodium 141 (135-145) mmol/L Potassium 4.0 (3.5-5.0) mmol/L Chloride 108 (101-111) mmol/L Carbon Dioxide 23 (21-32) mmol/L Anion Gap 10.0 (6-13) BUN 19 (6-20) mg/dL Creatinine 0.8 (0.4-1.0) mg/dL Estimated GFR (MDRD) 70 L (>89) Glucose 82 (70-100) mg/dL Lactic Acid (0.5-2.2) mmol/L Calcium 8.3 L (8.5-10.3) mg/dL Magnesium 2.0 (1.7-2.8) mg/dL Troponin I High Sens (2.3-14.8) pg/mL TSH (0.34-5.60) uIU/mL 02/17/19 02/17/19 02/16/19 Range/Units 05:28 00:49 18:50 WBC 4.7 L (4.8-10.8) x10^3/uL RBC 4.01 L (4.20-5.40) 10^6/uL Hgb 12.4 (12.0-16.0) g/dL Hct 40.0 (37.0-47.0) % MCV 99.8 H (81.0-99.0) fL MCH 30.9 (27.0-31.0) pg MCHC 31.0 L (32.0-36.0) g/dL RDW 14.8 (12.0-15.0) % Plt Count 95 L (130-450) 10^3/uL MPV 11.2 H (7.9-10.8) fL Neut # (Auto) 2.6 (1.5-6.6) 10^3/uL Lymph # (Auto) 1.4 L (1.5-3.5) 10^3/uL [place] # (Auto) 0.6 (0.0-1.0) 10^3/uL Eos # (Auto) 0.0 (0.0-0.7) 10^3/uL Baso # (Auto) 0.0 (0.0-0.1) 10^3/uL Absolute Nucleated RBC 0.00 x10^3/uL Nucleated RBC % 0.0 /100WBC PT (9.9-12.6) secs INR (0.8-1.2) APTT (24.9-33.3) secs Sodium (135-145) mmol/L Potassium (3.5-5.0) mmol/L Chloride (101-111) mmol/L Carbon Dioxide (21-32) mmol/L Anion Gap (6-13) BUN (6-20) mg/dL Creatinine (0.4-1.0) mg/dL Estimated GFR (MDRD) (>89) Glucose (70-100) mg/dL Lactic Acid (0.5-2.2) mmol/L Calcium (8.5-10.3) mg/dL Magnesium (1.7-2.8) mg/dL Troponin I High Sens 47.7 H* 47.8 H* (2.3-14.8) pg/mL TSH (0.34-5.60) uIU/mL 02/16/19 02/16/19 02/16/19 Range/Units 15:47 13:45 13:45 WBC (4.8-10.8) x10^3/uL RBC (4.20-5.40) 10^6/uL Hgb (12.0-16.0) g/dL Hct (37.0-47.0) % MCV (81.0-99.0) fL MCH (27.0-31.0) pg MCHC (32.0-36.0) g/dL RDW (12.0-15.0) % Plt Count (130-450) 10^3/uL MPV (7.9-10.8) fL Neut # (Auto) (1.5-6.6) 10^3/uL Lymph # (Auto) (1.5-3.5) 10^3/uL [place] # (Auto) (0.0-1.0) 10^3/uL Eos # (Auto) (0.0-0.7) 10^3/uL Baso # (Auto) (0.0-0.1) 10^3/uL Absolute Nucleated RBC x10^3/uL Nucleated RBC % /100WBC PT (9.9-12.6) secs INR (0.8-1.2) APTT (24.9-33.3) secs Sodium (135-145) mmol/L Potassium (3.5-5.0) mmol/L Chloride (101-111) mmol/L Carbon Dioxide (21-32) mmol/L Anion Gap (6-13) BUN (6-20) mg/dL Creatinine (0.4-1.0) mg/dL Estimated GFR (MDRD) (>89) Glucose (70-100) mg/dL Lactic Acid 1.3 (0.5-2.2) mmol/L Calcium (8.5-10.3) mg/dL Magnesium (1.7-2.8) mg/dL Troponin I High Sens 27.9 H* (2.3-14.8) pg/mL TSH 2.24 (0.34-5.60) uIU/mL 02/16/19 Range/Units 13:45 WBC (4.8-10.8) x10^3/uL RBC (4.20-5.40) 10^6/uL Hgb (12.0-16.0) g/dL Hct (37.0-47.0) % MCV (81.0-99.0) fL MCH (27.0-31.0) pg MCHC (32.0-36.0) g/dL RDW (12.0-15.0) % Plt Count (130-450) 10^3/uL MPV (7.9-10.8) fL Neut # (Auto) (1.5-6.6) 10^3/uL Lymph # (Auto) (1.5-3.5) 10^3/uL [place] # (Auto) (0.0-1.0) 10^3/uL Eos # (Auto) (0.0-0.7) 10^3/uL Baso # (Auto) (0.0-0.1) 10^3/uL Absolute Nucleated RBC x10^3/uL Nucleated RBC % /100WBC PT 56.2 H (9.9-12.6) secs INR 5.1 H* (0.8-1.2) APTT 46.9 H (24.9-33.3) secs Sodium (135-145) mmol/L Potassium (3.5-5.0) mmol/L Chloride (101-111) mmol/L Carbon Dioxide (21-32) mmol/L Anion Gap (6-13) BUN (6-20) mg/dL Creatinine (0.4-1.0) mg/dL Estimated GFR (MDRD) (>89) Glucose (70-100) mg/dL Lactic Acid (0.5-2.2) mmol/L Calcium (8.5-10.3) mg/dL Magnesium (1.7-2.8) mg/dL Troponin I High Sens (2.3-14.8) pg/mL TSH (0.34-5.60) uIU/mL ABX Reporting Has patient been on IV antibiotics over the past 48 hours?: Yes Sepsis Event Note (H) - Evaluation Current Stage of Sepsis: Ruled out Assessment/Plan - Problem List (1) Syncope Impression: 02/17 pt report she did not have syncope or dizziness or lightheaded in hospital. EKG reveals pt is still AFIB and with RVR . ECHO reveals unremarkable EF but severe RVSP and severe right ventricle pressure. start low dosage of spironolactone continue tele and vital monitor recurrent syncope. Pt has [id number] when she was found to have syncope. pt usually has creatinine at 0.8 but today she had 1.1. pt report she did not drink much water. it is likely caused by hypotension and dehydration. order ECHO tele and EKG hold home BP meds Lisinopril hydration with IVF (2)fever pt had low degree fever at morning. after nurse gave Tylenol, her fever is resolved. UA is not growth, CXR did not indicate infection. WBC is lower than normal. it is unknown etiology blood culture treat with Rocephin (3) Dehydration Conclusion/Plan: pt has increase creatinine, report she did not drink enough water. pt has hypotension initially hydration gently with IVF lab and vital monitor (4) Hypotension Conclusion/Plan: 02/17 resolved. pt is normal BP now hypotension is likely caused by dehydration. hold home BP meds, hydration vital monitor (5) A-fib with RVR Conclusion/Plan: pt had afib RVR at 150 initially, pt denies palpitation, chest pain. pt is asymptomatic Cardizem 10 once, metoprolol IV Q6H PRN, order Cardizem PO 30mg Q6H continue Sotalol tele and vital monitor pt's HR is good control. pt denies palpitation. INR is high 5.1, hold Coumadin now. daily PT/INR test (6) Elevated troponin Conclusion/Plan: 02/17, stable, troponin is slight elevated. pt had 7.1 INR, pt is unlikely to have ischemic SD continue tele and vital monitor pt denies chest pain, EKG did not indicate ischemic change per ER report.pt has elevated INR. it likely is caused by dehydration and slight increase creatinine level, and kidney function decrease. ER already gave pt 325 mg Aspirin. serial check troponin tele and ekg monitor tech (7) Abnormal EKG Conclusion/Plan: pt has begeminy in EKG per ER provider's chart, but normal person also has benign bigeminy. pt denies chest pain, palpitation, N/V, or diaphoresis. continue tele and ekg monitor tech (8) Elevated INR Conclusion/Plan: 02/17 pt was ordered 10mcg vitamin K PO continue monitor PT/INR hold Coumadin now, and continue PT/INR test (9) Dementia Conclusion/Plan: pt is very forgetful when I interview pt. continue pt's home meds Donepezil after reconcile (10) pulmonary HTN ECHO today reveals pt unremarkable systolic EF, but pt has severe RVSP 108 and severe abnormal right ventricle pressure order Spironolactone (4) A-fib Qualifiers: Atrial fibrillation type: paroxysmal Qualified Code(s): I48.0 - Paroxysmal atrial fibrillation
[2019-02-17] MEDS: diltiaZEM 30 MG TABLET PO SCH ×2 (17:33→23:47)
[2019-02-17] MEDS ORDERED: HALOPERIDOL 5 MG/ML VIAL IVP ONE (19:00)
[2019-02-17] MEDS ORDERED: SOTALOL 80 MG TABLET PO SCH (19:09)
[2019-02-17] MEDS ORDERED: diltiaZEM INJ 5 MG/ML VIAL IVP STA (20:53)
[2019-02-18 05:35] LABS: BASOPHILS % (AUTO) 0.4 %; HGB - HEMOGLOBIN 13.2 g/dL (12.0-16.0); LYMPHOCYTES # (AUTO) 1.3 10^3/uL (1.5-3.5); LYMPHOCYTES % (AUTO) 28.9 %; MEAN CORPUSCULAR HEMOGLOBIN 30.9 pg (27.0-31.0); MEAN CORPUSCULAR HGB CONC 31.2 g/dL (32.0-36.0); MEAN CORPUSCULAR VOLUME 99.1 fL (81.0-99.0); MEAN PLATELET VOLUME 10.7 fL (7.9-10.8); MONOCYTES # (AUTO) 0.7 10^3/uL (0.0-1.0); MONOCYTES % (AUTO) 14.6 %; NEUTROPHILS # (AUTO) 2.5 10^3/uL (1.5-6.6); NEUTROPHILS % (AUTO) 55.7 %; PLT - PLATELET COUNT 95 10^3/uL (130-450); RED BLOOD COUNT 4.27 10^6/uL (4.20-5.40); RED CELL DISTRIBUTION WIDTH 14.8 % (12.0-15.0); WHITE BLOOD COUNT 4.5 x10^3/uL (4.8-10.8)
[2019-02-18 05:42] LABS: INR 1.3 (0.8-1.2); PT - PROTHROMBIN TIME 14.1 secs (9.9-12.6)
[2019-02-18 05:45] LABS: CALCIUM 8.4 mg/dL (8.5-10.3); CREATININE 0.8 mg/dL (0.4-1.0)
[2019-02-18] MEDS: diltiaZEM 30 MG TABLET PO SCH ×3 (06:08→17:30)
[2019-02-18] MEDS ORDERED: SODIUM CHLORIDE 0.9% MINIBAG 100 ML IV ONE (08:48)
[2019-02-18] MEDS: guaiFENesin 100 MG/5 ML UDC PO PRN (08:48)
[2019-02-18] MEDS: FAMOTIDINE 20 MG TABLET PO SCH ×2 (08:49→20:34)
[2019-02-18] MEDS: CITALOPRAM 10 MG TABLET PO SCH (08:49)
[2019-02-18] MEDS: POLYETHYLENE GLYCOL 3350 17 GM PACKET PO SCH (08:49)
[2019-02-18] MEDS: GABAPENTIN 300 MG CAPSULE PO SCH ×2 (08:49→20:34)
[2019-02-18] MEDS: SPIRONOLACTONE 25 MG TABLET PO SCH (08:49)
[2019-02-18] MEDS: SODIUM CHLORIDE FLUSH 0.9% 10 ML SYRINGE IVP SCH ×2 (08:49→16:35)
[2019-02-18] MEDS: SOTALOL 80 MG TABLET PO SCH ×2 (08:49→20:34)
[2019-02-18] MEDS ORDERED: cefTRIAXone 2 GM in SODIUM CHLORIDE 0.9% MINIBAG 100 ML IV SCH (09:00)
[2019-02-18] MEDS ORDERED: cefTRIAXone 1 GM VIAL IVP SCH (09:00)
[2019-02-18] MEDS ORDERED: SPIRONOLACTONE 25 MG TABLET PO SCH (09:00)
[2019-02-18] MEDS: cefTRIAXone 2 GM in SODIUM CHLORIDE 0.9% MINIBAG 100 ML IV SCH (11:38)
[2019-02-18] MEDS ORDERED: WARFARIN 5 MG TABLET PO SCH (14:00)
--- NOTE | 2019-02-18 14:32 | PROVIDER PROGRESS NOTE ---
Subjective - Prog Note Date Prog Note Date: 02/18/19 - Subjective Pt reports feeling: Improved Subjective: pt report she feel better. pt is alert and oriented to person, location, but not time yet. pt report she has no fever today, had fever on last night. pt denies neck pain and neck stiffness on flexion, denies headache. she also denies chest pain, shortness of breath. Current Medications - Current Medications Current Medications: Active Medications Acetaminophen (Tylenol) 650 mg PO Q4HR PRN PRN Reason: Pain 1 to 4 Last Admin: 02/17/19 23:47 Dose: 650 mg Citalopram Hydrobromide (Celexa) 10 mg PO DAILY [facility] Last Admin: 02/18/19 08:49 Dose: 10 mg Diltiazem HCl (Cardizem) 30 mg PO Q6HR [facility] Last Admin: 02/18/19 12:25 Dose: 30 mg Famotidine (Pepcid) 20 mg PO BID [facility] Last Admin: 02/18/19 08:49 Dose: 20 mg Gabapentin (Neurontin) 300 mg PO BID [facility] Last Admin: 02/18/19 08:49 Dose: 300 mg Guaifenesin (Robitussin Liquid) 100 mg PO Q6HR PRN PRN Reason: Cough Last Admin: 02/18/19 08:48 Dose: 100 mg Ceftriaxone Sodium 2 gm/ (Sodium Chloride) 100 mls @ 200 mls/hr IV DAILY [facility] Last Infusion: 02/18/19 12:25 Dose: Infused Metoprolol Tartrate (Lopressor Inj) 5 mg IVP Q6H PRN PRN Reason: Hypertensive Emergency Ondansetron HCl (Zofran Inj) 4 mg IVP Q6HR PRN PRN Reason: Nausea / Vomiting Ondansetron HCl (Zofran Odt) 4 mg TL Q6HR PRN PRN Reason: Nausea / Vomiting Oxycodone HCl (Roxicodone) 5 mg PO Q4HR PRN PRN Reason: Pain 5 to 7 Last Admin: 02/17/19 17:33 Dose: 5 mg Polyethylene Glycol (Miralax) 17 gm PO DAILY [facility] Last Admin: 02/18/19 08:49 Dose: 17 gm Sodium Chloride (Normal Saline Flush 0.9%) 10 ml IVP PRN PRN PRN Reason: NEEDED PER PROVIDER ORDERS Last Admin: 02/17/19 23:52 Dose: 10 ml Sodium Chloride (Normal Saline Flush 0.9%) 10 ml IVP 0100,0900,1700 [facility] Last Admin: 02/18/19 08:49 Dose: 10 ml Sotalol HCl (Betapace) 80 mg PO BID [facility] Last Admin: 02/18/19 08:49 Dose: 80 mg Spironolactone (Aldactone) 12.5 mg PO DAILY [facility] Throat Lozenges (Cepacol) 1 lozenge MM Q2HR PRN PRN Reason: Throat pain Last Admin: 02/17/19 10:50 Dose: 1 lozenge Throat Lozenges (Cepacol) 1 lozenge MM Q2HR PRN PRN Reason: Throat pain Last Admin: 02/17/19 01:18 Dose: 1 lozenge Warfarin Sodium (Coumadin) 5 mg PO QDWARFARIN [facility] Last Admin: 02/18/19 14:01 Dose: 5 mg Gabapentin [Neurontin] 300 mg PO BID 08/08/13 Lisinopril [Prinivil] 10 mg PO DAILY 08/08/13 Simvastatin [Zocor] 10 mg PO HS 08/08/13 Warfarin [Coumadin] 5 mg PO DAILY 08/08/13 Cefuroxime Axetil [Cefuroxime] 500 mg PO BID 04/15/18 Citalopram Hydrobromide [Citalopram HBr] 10 mg PO DAILY 04/15/18 Cholecalciferol (Vitamin D3) [Vitamin D] 4,000 unit PO DAILY 02/17/19 Hydrocodone/Acetaminophen [Hydrocodon-Acetaminophen 5-325] 1 tab PO Q4H PRN 02/17/19 Objective - Vital Signs/Intake & Output Reviewed Vital Signs: Yes Vital Signs: Vital Signs x48h Temp Pulse Pulse Pulse Pulse Resp BP 02/18/19 13:00 36.6 C 91 16 102/60 02/18/19 07:57 100 96 02/18/19 07:56 37.9 C H 78 110/61 02/18/19 07:55 95 BP BP BP Pulse Ox 02/18/19 13:00 95 02/18/19 07:57 116/64 85/59 L 02/18/19 07:56 94 02/18/19 07:55 110/61 Intake & Output: Intake & Output 02/15/19 02/16/19 02/17/19 02/18/19 23:59 23:59 23:59 23:59 Intake Total 1160 3714.000 1120 Output Total 100 1225 Balance 1160 3614.000 -105 - Objective General Appearance: positive: No acute distress, Alert. negative: Lethargic Eyes Bilateral: positive: Normal inspection, PERRL, No lid inflammation, Conjunctivae nml ENT: positive: ENT inspection nml, Pharynx nml, No signs of dehydration. negative: Purulent nasal drainage, Pharyngeal erythema, Oral lesions Neck: positive: Nml inspection, Thyroid nml, No JVD, Trachea midline. negative: Thyromegaly, Lymphadenopathy (R), Lymphadenopathy (L), Stiff neck, Swelling/bruising, Tracheal deviation Respiratory: positive: Chest non-tender, No respiratory distress, Breath sounds nml. negative: Wheezes, Rales, Rhonchi Cardiovascular: positive: Regular rate & rhythm, No murmur, No gallop. negative: Irregularly irregular, Extrasystoles, Tachycardia, Bradycardia, JVD present, Systolic murmur, Diastolic murmur Peripheral Pulses: 2+ Radial (R), 2+ Radial (L), 2+ Dorsalis pedis (R), 2+ Dorsalis pedis (L) Abdomen: positive: Non-tender, No organomegaly, Nml bowel sounds, No distention. negative: Tenderness, Guarding, Rebound Back: positive: Nml inspection. negative: CVA tenderness (R), CVA tenderness (L) Skin: positive: Color nml, No rash, Warm, Dry. negative: Cyanosis, Diaphoresis, Pallor Extremities: positive: Non-tender, Full ROM, Nml appearance. negative: Calf tenderness, Joint swelling, Reece's sign/cords Neurologic/Psychiatric: positive: Motor nml, Sensation nml, Mood/affect nml. negative: Weakness, Sensory loss, Facial droop, Slurred/abnml speech, Depressed mood/affect - Lab Results Fish Bones: 02/18/19 05:14 02/18/19 05:14 Other Labs: Lab Results x24hrs 02/18/19 02/18/19 02/18/19 Range/Units 05:14 05:14 05:14 WBC 4.5 L (4.8-10.8) x10^3/uL RBC 4.27 (4.20-5.40) 10^6/uL Hgb 13.2 (12.0-16.0) g/dL Hct 42.3 (37.0-47.0) % MCV 99.1 H (81.0-99.0) fL MCH 30.9 (27.0-31.0) pg MCHC 31.2 L (32.0-36.0) g/dL RDW 14.8 (12.0-15.0) % Plt Count 95 L (130-450) 10^3/uL MPV 10.7 (7.9-10.8) fL Neut # (Auto) 2.5 (1.5-6.6) 10^3/uL Lymph # (Auto) 1.3 L (1.5-3.5) 10^3/uL [place] # (Auto) 0.7 (0.0-1.0) 10^3/uL Eos # (Auto) 0.0 (0.0-0.7) 10^3/uL Baso # (Auto) 0.0 (0.0-0.1) 10^3/uL Absolute Nucleated RBC 0.00 x10^3/uL Nucleated RBC % 0.0 /100WBC PT 14.1 H (9.9-12.6) secs INR 1.3 H (0.8-1.2) Sodium 140 (135-145) mmol/L Potassium 3.8 (3.5-5.0) mmol/L Chloride 105 (101-111) mmol/L Carbon Dioxide 25 (21-32) mmol/L Anion Gap 10.0 (6-13) BUN 13 (6-20) mg/dL Creatinine 0.8 (0.4-1.0) mg/dL Estimated GFR (MDRD) 70 L (>89) Glucose 100 (70-100) mg/dL Calcium 8.4 L (8.5-10.3) mg/dL ABX Reporting Has patient been on IV antibiotics over the past 48 hours?: Yes Sepsis Event Note (H) - Evaluation Current Stage of Sepsis: Ruled out Assessment/Plan - Problem List (1) Syncope Impression: 02/18 pt has hx of syncope, previous etiology was unclear. it is likely caused in this time by dehydration and low BP, plus orthostatic 02/17 pt report she did not have syncope or dizziness or lightheaded in hospital. EKG reveals pt is still AFIB and with RVR . ECHO reveals unremarkable EF but severe RVSP and severe right ventricle pressure. start low dosage of spironolactone continue tele and vital monitor recurrent syncope. Pt has ttrhpsivime18/40 when she was found to have syncope. pt usually has creatinine at 0.8 but today she had 1.1. pt report she did not drink much water. it is likely caused by hypotension and dehydration. order ECHO tele and EKG hold home BP meds Lisinopril hydration with IVF (2)fever 02/18, last night pt still has 39.3 temperature. CXR did not reveal pneumonia, WBC is slightly less than normal. UA analysis reveals many bacterial but culture is negative bacterial growth. Pt is alert and oriented plus two days. pt denies headache, neck stiffness or pain. it is unlikely meningitis. blood culture is negative for bacterial growth preliminary. continue treat with wide spectrum antibiotics pt had low degree fever at morning. after nurse gave Tylenol, her fever is resolved. UA is not growth, CXR did not indicate infection. WBC is lower than normal. it is unknown etiology blood culture treat with Rocephin (3) Dehydration Conclusion/Plan: 02/18 improved. creatinine returned her baseline continue gently hydration, lab monitor pt has increase creatinine, report she did not drink enough water. pt has hypotension initially hydration gently with IVF lab and vital monitor (4) Hypotension Conclusion/Plan: 02/17 resolved. pt is normal BP now hypotension is likely caused by dehydration. hold home BP meds, hydration vital monitor (5) A-fib with RVR Conclusion/Plan: 02/18 controlled. pt's pulse is 91 continue Sotalol pt had afib RVR at 150 initially, pt denies palpitation, chest pain. pt is asymptomatic Cardizem 10 once, metoprolol IV Q6H PRN, order Cardizem PO 30mg Q6H continue Sotalol tele and vital monitor pt's HR is good control. pt denies palpitation. INR is high 5.1, hold Coumadin now. daily PT/INR test (6) Elevated troponin Conclusion/Plan: 02/18 stable. pt is unlikely to have ischemic VT, pt had 7.1 INR in the previous. pt denies chest pain, and hemodynamic stable. 02/17, stable, troponin is slight elevated. pt had 7.1 INR, pt is unlikely to have ischemic VT continue tele and vital monitor pt denies chest pain, EKG did not indicate ischemic change per ER report.pt has elevated INR. it likely is caused by dehydration and slight increase creatinine level, and kidney function decrease. ER already gave pt 325 mg Aspirin. serial check troponin tele and hall monitor (7) Abnormal EKG Conclusion/Plan: pt has begeminy in EKG per ER provider's chart, but normal person also has benign bigeminy. pt denies chest pain, palpitation, N/V, or diaphoresis. continue tele and hall monitor (8) Elevated INR Conclusion/Plan: 02/18 after pt was given vitamin K on yesterday. now INR became 1.3, reconcile pt's home Coumadin 02/17 pt was ordered 10mcg vitamin K PO continue monitor PT/INR hold Coumadin now, and continue PT/INR test (9) Dementia Conclusion/Plan: pt is very forgetful when I interview pt. continue pt's home meds Donepezil after reconcile (10) pulmonary HTN 02/18 pt is prescribed Spironolactone to help reduce pulmonary HTN ECHO today reveals pt unremarkable systolic EF, but pt has severe RVSP 108 and severe abnormal right ventricle pressure order Spironolactone (4) A-fib Qualifiers: Atrial fibrillation type: paroxysmal Qualified Code(s): I48.0 - Paroxysmal atrial fibrillation
[2019-02-19] MEDS: diltiaZEM 30 MG TABLET PO SCH ×3 (00:47→12:35)
[2019-02-19] MEDS: SODIUM CHLORIDE FLUSH 0.9% 10 ML SYRINGE IVP SCH ×3 (00:47→20:34)
[2019-02-19] MEDS: guaiFENesin 100 MG/5 ML UDC PO PRN ×2 (04:26→20:34)
[2019-02-19] MEDS: BENZOCAINE/MENTHOL LOZENGE MM PRN (04:27)
[2019-02-19 05:18] LABS: BASOPHILS % (AUTO) 0.2 %; HGB - HEMOGLOBIN 13.6 g/dL (12.0-16.0); LYMPHOCYTES # (AUTO) 1.3 10^3/uL (1.5-3.5); LYMPHOCYTES % (AUTO) 32.3 %; MEAN CORPUSCULAR HEMOGLOBIN 31.6 pg (27.0-31.0); MEAN CORPUSCULAR HGB CONC 32.5 g/dL (32.0-36.0); MEAN CORPUSCULAR VOLUME 97.2 fL (81.0-99.0); MEAN PLATELET VOLUME 10.5 fL (7.9-10.8); MONOCYTES # (AUTO) 0.6 10^3/uL (0.0-1.0); MONOCYTES % (AUTO) 13.7 %; NEUTROPHILS # (AUTO) 2.1 10^3/uL (1.5-6.6); NEUTROPHILS % (AUTO) 52.6 %; PLT - PLATELET COUNT 96 10^3/uL (130-450); RED BLOOD COUNT 4.31 10^6/uL (4.20-5.40); RED CELL DISTRIBUTION WIDTH 14.4 % (12.0-15.0)
[2019-02-19 05:24] LABS: CALCIUM 8.7 mg/dL (8.5-10.3); CREATININE 0.8 mg/dL (0.4-1.0)
[2019-02-19 05:32] LABS: INR 1.1 (0.8-1.2); PT - PROTHROMBIN TIME 12.9 secs (9.9-12.6)
[2019-02-19] MEDS: CITALOPRAM 10 MG TABLET PO SCH (08:19)
[2019-02-19] MEDS: SOTALOL 80 MG TABLET PO SCH ×2 (08:19→20:35)
[2019-02-19] MEDS: SPIRONOLACTONE 25 MG TABLET PO SCH (08:19)
[2019-02-19] MEDS: FAMOTIDINE 20 MG TABLET PO SCH ×2 (08:20→20:35)
[2019-02-19] MEDS: cefTRIAXone 2 GM in SODIUM CHLORIDE 0.9% MINIBAG 100 ML IV SCH (08:20)
[2019-02-19] MEDS: GABAPENTIN 300 MG CAPSULE PO SCH ×2 (08:20→20:34)
[2019-02-19] MEDS: POLYETHYLENE GLYCOL 3350 17 GM PACKET PO SCH (08:20)
[2019-02-19] MEDS: ENOXAPARIN 60 MG/0.6 ML SYRINGE SUBQ SCH ×2 (08:25→15:37)
[2019-02-19] MEDS ORDERED: WARFARIN 5 MG TABLET PO SCH (09:00)
[2019-02-19] MEDS ORDERED: SPIRONOLACTONE 25 MG TABLET PO SCH (09:00)
[2019-02-19] MEDS ORDERED: SACCHAROMYCES BOULARDII 250 MG CAPSULE PO SCH (09:13)
--- NOTE | 2019-02-19 13:43 | PROVIDER PROGRESS NOTE ---
Subjective - Prog Note Date Prog Note Date: 02/19/19 - Subjective Pt reports feeling: Improved Subjective: today pt's mental status is still some confused but better. pt denies fever on last night, denies chest pain, palpitation. Pt's Afib RVR HR is still slight higher around 100-110 HR. pt's INR is down to 1.1 although pt was given 5 mg Coumadin. Current Medications - Current Medications Current Medications: Active Medications Acetaminophen (Tylenol) 650 mg PO Q4HR PRN PRN Reason: Pain 1 to 4 Last Admin: 02/17/19 23:47 Dose: 650 mg Citalopram Hydrobromide (Celexa) 10 mg PO DAILY [facility] Last Admin: 02/19/19 08:19 Dose: 10 mg Diltiazem HCl (Cardizem Cd) 120 mg PO DAILY [facility] Enoxaparin Sodium (Lovenox) 60 mg SUBQ BID [facility] Last Admin: 02/19/19 08:25 Dose: Not Given Famotidine (Pepcid) 20 mg PO BID [facility] Last Admin: 02/19/19 08:20 Dose: 20 mg Gabapentin (Neurontin) 300 mg PO BID [facility] Last Admin: 02/19/19 08:20 Dose: 300 mg Guaifenesin (Robitussin Liquid) 100 mg PO Q6HR PRN PRN Reason: Cough Last Admin: 02/19/19 04:26 Dose: 100 mg Ceftriaxone Sodium 2 gm/ (Sodium Chloride) 100 mls @ 200 mls/hr IV DAILY [facility] Last Infusion: 02/19/19 09:00 Dose: Infused Metoprolol Tartrate (Lopressor Inj) 5 mg IVP Q6H PRN PRN Reason: Hypertensive Emergency Ondansetron HCl (Zofran Inj) 4 mg IVP Q6HR PRN PRN Reason: Nausea / Vomiting Ondansetron HCl (Zofran Odt) 4 mg TL Q6HR PRN PRN Reason: Nausea / Vomiting Oxycodone HCl (Roxicodone) 5 mg PO Q4HR PRN PRN Reason: Pain 5 to 7 Last Admin: 02/17/19 17:33 Dose: 5 mg Polyethylene Glycol (Miralax) 17 gm PO DAILY [facility] Last Admin: 02/19/19 08:20 Dose: Not Given Sodium Chloride (Normal Saline Flush 0.9%) 10 ml IVP PRN PRN PRN Reason: NEEDED PER PROVIDER ORDERS Last Admin: 02/17/19 23:52 Dose: 10 ml Sodium Chloride (Normal Saline Flush 0.9%) 10 ml IVP 0100,0900,1700 [facility] Last Admin: 02/19/19 08:20 Dose: 10 ml Sotalol HCl (Betapace) 80 mg PO BID [facility] Last Admin: 02/19/19 08:19 Dose: 80 mg Spironolactone (Aldactone) 25 mg PO DAILY [facility] Last Admin: 02/19/19 08:19 Dose: 25 mg Throat Lozenges (Cepacol) 1 lozenge MM Q2HR PRN PRN Reason: Throat pain Last Admin: 02/19/19 04:27 Dose: 1 lozenge Warfarin Sodium (Coumadin) 5 mg PO QDWARFARIN [facility] Gabapentin [Neurontin] 300 mg PO BID 08/08/13 Lisinopril [Prinivil] 10 mg PO DAILY 08/08/13 Simvastatin [Zocor] 10 mg PO HS 08/08/13 Warfarin [Coumadin] 5 mg PO DAILY 08/08/13 Cefuroxime Axetil [Cefuroxime] 500 mg PO BID 04/15/18 Citalopram Hydrobromide [Citalopram HBr] 10 mg PO DAILY 04/15/18 Cholecalciferol (Vitamin D3) [Vitamin D] 4,000 unit PO DAILY 02/17/19 Hydrocodone/Acetaminophen [Hydrocodon-Acetaminophen 5-325] 1 tab PO Q4H PRN 02/17/19 Objective - Vital Signs/Intake & Output Reviewed Vital Signs: Yes Vital Signs: Vital Signs x48h Temp Pulse Pulse Pulse Resp BP BP 02/19/19 12:35 113/72 02/19/19 12:34 101 H 113/72 02/19/19 07:51 137 H 110 H 02/19/19 07:49 37.4 C 108 H 20 134/79 H 02/19/19 06:21 141/90 H BP BP Pulse Ox 02/19/19 12:35 02/19/19 12:34 02/19/19 07:51 124/75 133/79 H 02/19/19 07:49 93 02/19/19 06:21 Intake & Output: Intake & Output 08/05/2702/17/19 02/18/19 02/19/19 23:59 23:59 23:59 23:59 Intake Total 1160 3714.000 1357 710 Output Total 100 1525 Balance 1160 1494.000 -168 710 - Objective General Appearance: positive: No acute distress, Alert. negative: Lethargic Eyes Bilateral: positive: Normal inspection, PERRL, No lid inflammation, Conjunctivae nml ENT: positive: ENT inspection nml, Pharynx nml, No signs of dehydration. negative: Purulent nasal drainage, Pharyngeal erythema, Oral lesions Neck: positive: Nml inspection, Thyroid nml, No JVD, Trachea midline. negative: Thyromegaly, Lymphadenopathy (R), Lymphadenopathy (L), Stiff neck, Swelling/bruising, Tracheal deviation Respiratory: positive: Chest non-tender, No respiratory distress, Breath sounds nml. negative: Wheezes, Rales, Rhonchi Cardiovascular: positive: Regular rate & rhythm, No murmur, No gallop. negative: Irregularly irregular, Extrasystoles, Tachycardia, Bradycardia, JVD present, Systolic murmur, Diastolic murmur Peripheral Pulses: 2+ Radial (R), 2+ Radial (L), 2+ Dorsalis pedis (R), 2+ Dorsalis pedis (L) Abdomen: positive: Non-tender, No organomegaly, Nml bowel sounds, No distention. negative: Tenderness, Guarding, Rebound Back: positive: Nml inspection. negative: CVA tenderness (R), CVA tenderness (L) Skin: positive: Color nml, No rash, Warm, Dry. negative: Cyanosis, Diaphoresis, Pallor Neurologic/Psychiatric: positive: Oriented x3, Sensation nml, Mood/affect nml. negative: Weakness, Sensory loss, Facial droop, Slurred/abnml speech, Depressed mood/affect - Lab Results Fish Bones: 02/19/19 05:00 02/19/19 05:00 Other Labs: Lab Results x24hrs 02/19/19 02/19/19 02/19/19 Range/Units 05:00 05:00 05:00 WBC 4.0 L (4.8-10.8) x10^3/uL RBC 4.31 (4.20-5.40) 10^6/uL Hgb 13.6 (12.0-16.0) g/dL Hct 41.9 (37.0-47.0) % MCV 97.2 (81.0-99.0) fL MCH 31.6 H (27.0-31.0) pg MCHC 32.5 (32.0-36.0) g/dL RDW 14.4 (12.0-15.0) % Plt Count 96 L (130-450) 10^3/uL MPV 10.5 (7.9-10.8) fL Neut # (Auto) 2.1 (1.5-6.6) 10^3/uL Lymph # (Auto) 1.3 L (1.5-3.5) 10^3/uL [place] # (Auto) 0.6 (0.0-1.0) 10^3/uL Eos # (Auto) 0.0 (0.0-0.7) 10^3/uL Baso # (Auto) 0.0 (0.0-0.1) 10^3/uL Absolute Nucleated RBC 0.00 x10^3/uL Nucleated RBC % 0.0 /100WBC PT 12.9 H (9.9-12.6) secs INR 1.1 (0.8-1.2) Sodium 140 (135-145) mmol/L Potassium 4.1 (3.5-5.0) mmol/L Chloride 104 (101-111) mmol/L Carbon Dioxide 25 (21-32) mmol/L Anion Gap 11.0 (6-13) BUN 15 (6-20) mg/dL Creatinine 0.8 (0.4-1.0) mg/dL Estimated GFR (MDRD) 70 L (>89) Glucose 102 H (70-100) mg/dL Calcium 8.7 (8.5-10.3) mg/dL ABX Reporting Has patient been on IV antibiotics over the past 48 hours?: Yes Sepsis Event Note (H) - Evaluation Current Stage of Sepsis: Ruled out Assessment/Plan - Problem List (1) Syncope Impression: 02/19 pt has no more syncope. pt was educated how to prevent of fall 02/18 pt has hx of syncope, previous etiology was unclear. it is likely caused in this time by dehydration and low BP, plus orthostatic 02/17 pt report she did not have syncope or dizziness or lightheaded in hospital. EKG reveals pt is still AFIB and with RVR . ECHO reveals unremarkable EF but severe RVSP and severe right ventricle pressure. start low dosage of spironolactone continue tele and vital monitor recurrent syncope. Pt has [id number] when she was found to have syncope. pt usually has creatinine at 0.8 but today she had 1.1. pt report she did not drink much water. it is likely caused by hypotension and dehydration. order ECHO tele and EKG hold home BP meds Lisinopril hydration with IVF (2)fever 02/19 no fever on last night, blood culture is negative preliminary. after 48 hours, if pt continue no fever, pt is planed to d/c on tomorrow 02/18, last night pt still has 39.3 temperature. CXR did not reveal pneumonia, WBC is slightly less than normal. UA analysis reveals many bacterial but culture is negative bacterial growth. Pt is alert and oriented plus two days. pt denies headache, neck stiffness or pain. it is unlikely meningitis. blood culture is negative for bacterial growth preliminary. continue treat with wide spectrum antibiotics pt had low degree fever at morning. after nurse gave Tylenol, her fever is resolved. UA is not growth, CXR did not indicate infection. WBC is lower than normal. it is unknown etiology blood culture treat with Rocephin (3) Dehydration Conclusion/Plan: 02/19 resolved 02/18 improved. creatinine returned her baseline continue gently hydration, lab monitor pt has increase creatinine, report she did not drink enough water. pt has hypotension initially hydration gently with IVF lab and vital monitor (4) Hypotension Conclusion/Plan: 02/17 resolved. pt is normal BP now hypotension is likely caused by dehydration. hold home BP meds, hydration vital monitor (5) A-fib with RVR Conclusion/Plan: 02/19, still not well controlled, add Cardizem CD 120 mg daily. pt is asymptomatic, pt denies palpitation, chest pain. continue Sotalol continue tele and vital monitor 02/18 controlled. pt's pulse is 91 continue Sotalol pt had afib RVR at 150 initially, pt denies palpitation, chest pain. pt is asymptomatic Cardizem 10 once, metoprolol IV Q6H PRN, order Cardizem PO 30mg Q6H continue Sotalol tele and vital monitor pt's HR is good control. pt denies palpitation. INR is high 5.1, hold Coumadin now. daily PT/INR test (6) Elevated troponin Conclusion/Plan: 02/18 stable. pt is unlikely to have ischemic NM, pt had 7.1 INR in the previous. pt denies chest pain, and hemodynamic stable. 02/17, stable, troponin is slight elevated. pt had 7.1 INR, pt is unlikely to have ischemic NM continue tele and vital monitor pt denies chest pain, EKG did not indicate ischemic change per ER report.pt has elevated INR. it likely is caused by dehydration and slight increase creatinine level, and kidney function decrease. ER already gave pt 325 mg Aspirin. serial check troponin tele and energy conservation specialist (7) Abnormal EKG Conclusion/Plan: pt has begeminy in EKG per ER provider's chart, but normal person also has benign bigeminy. pt denies chest pain, palpitation, N/V, or diaphoresis. continue tele and energy conservation specialist (8) Elevated INR Conclusion/Plan: 02/19 pt's INR is down to 1.1 although pt was given Coumadin on yesterday. Add Coumadin to 10 mg and start Lovenex today daily check INR/PT 02/18 after pt was given vitamin K on yesterday. now INR became 1.3, reconcile pt's home Coumadin 02/17 pt was ordered 10mcg vitamin K PO continue monitor PT/INR hold Coumadin now, and continue PT/INR test (9) Dementia Conclusion/Plan: pt is very forgetful when I interview pt. continue pt's home meds Donepezil after reconcile (10) pulmonary HTN 02/18 pt is prescribed Spironolactone to help reduce pulmonary HTN ECHO today reveals pt unremarkable systolic EF, but pt has severe RVSP 108 and severe abnormal right ventricle pressure order Spironolactone (11) delirium pt is still having some confused but better than yesterday. pt's just had major stroke, plus pt's fever, afib RVR, syncope, contribute to his acute delirium. continue orient pt continue neuro check treat underline disease as above after PT evaluated pt, pt is not qualified to SNF, consult with school social worker, plan to d/c to nurse home on tomorrow. pt's family accepted the plan. (4) A-fib Qualifiers: Atrial fibrillation type: paroxysmal Qualified Code(s): I48.0 - Paroxysmal atrial fibrillation
[2019-02-19] MEDS: diltiaZEM CD 120 MG CAPSULE PO SCH (14:34)
[2019-02-19] MEDS: DIGOXIN 125 MCG TABLET PO SCH (17:03)
[2019-02-20] MEDS: SODIUM CHLORIDE FLUSH 0.9% 10 ML SYRINGE IVP SCH ×2 (00:28→07:53)
[2019-02-20 05:52] LABS: BASOPHILS % (AUTO) 0.4 %; EOSINOPHILS % (AUTO) 0.6 %; HGB - HEMOGLOBIN 13.5 g/dL (12.0-16.0); LYMPHOCYTES # (AUTO) 1.8 10^3/uL (1.5-3.5); LYMPHOCYTES % (AUTO) 25.6 %; MEAN CORPUSCULAR HEMOGLOBIN 31.4 pg (27.0-31.0); MEAN CORPUSCULAR HGB CONC 32.7 g/dL (32.0-36.0); MEAN PLATELET VOLUME 10.4 fL (7.9-10.8); MONOCYTES # (AUTO) 0.7 10^3/uL (0.0-1.0); MONOCYTES % (AUTO) 10.3 %; NEUTROPHILS # (AUTO) 4.4 10^3/uL (1.5-6.6); PLT - PLATELET COUNT 122 10^3/uL (130-450); RED CELL DISTRIBUTION WIDTH 14.3 % (12.0-15.0)
[2019-02-20 05:54] LABS: INR 1.6 (0.8-1.2); PT - PROTHROMBIN TIME 18.1 secs (9.9-12.6)
[2019-02-20 05:59] LABS: CALCIUM 8.9 mg/dL (8.5-10.3); CREATININE 0.8 mg/dL (0.4-1.0)
[2019-02-20] MEDS: DIGOXIN 125 MCG TABLET PO SCH (07:51)
[2019-02-20] MEDS: SOTALOL 80 MG TABLET PO SCH (07:52)
[2019-02-20] MEDS: CITALOPRAM 10 MG TABLET PO SCH (07:52)
[2019-02-20] MEDS: diltiaZEM CD 120 MG CAPSULE PO SCH (07:52)
[2019-02-20] MEDS: SPIRONOLACTONE 25 MG TABLET PO SCH (07:52)
[2019-02-20] MEDS: GABAPENTIN 300 MG CAPSULE PO SCH (07:52)
[2019-02-20] MEDS: POLYETHYLENE GLYCOL 3350 17 GM PACKET PO SCH (07:53)
[2019-02-20] MEDS: cefTRIAXone 2 GM in SODIUM CHLORIDE 0.9% MINIBAG 100 ML IV SCH (07:53)
[2019-02-20] MEDS: ENOXAPARIN 60 MG/0.6 ML SYRINGE SUBQ SCH (07:53)
[2019-02-20] MEDS: FAMOTIDINE 20 MG TABLET PO SCH (07:53)
--- NOTE | 2019-02-20 09:54 | XRAY Report ---
Reason: cough Procedure Date: 02/20/2019 Accession Number: [id number] / [id number] Procedure: XR - Chest 1 View X-Ray CPT Code: 99645 FULL RESULT: EXAM: CHEST RADIOGRAPHY EXAM DATE: 02/20/2019 09:15 AM. CLINICAL HISTORY: COUGH. COMPARISON: CHEST 1 VIEW 02/17/2019 1:49 PM CHEST 1 VIEW 04/15/2018 9:42 AM. TECHNIQUE: 1 view. FINDINGS: Lungs/Pleura: Coarse lung markings and minimally increased interstitial changes are again seen, likely chronic. No focal opacities evident. No pleural effusion. No pneumothorax. Mediastinum: Heart and mediastinal contours are notable for aortic calcification. Other: Degenerative changes are seen in the shoulders bilaterally. IMPRESSION: No acute cardiopulmonary abnormality demonstrated. RADIA
--- NOTE | 2019-02-20 12:43 | Discharge Plan ---
"Discharge Plan for SNF / [facility] - Discharge Plan And Transition Orders Problem Reviewed?: Yes Disposition: 03 SNF DC/Xfer Condition: Poor Allergies and Adverse Reactions: Allergies Allergy/AdvReac Type Severity Reaction Status Date / Time Penicillins Allergy Unknown Verified 02/16/19 12:14 lorazepam [From Ativan] AdvReac Anxiety Verified 02/19/19 22:51 Health Concerns: syncope, afib with RVR, dehydration, fever, pulmonary HTN, abnormal INR Plan of Treatment: your ECHO reveals normal EF at 60-65% but with severe high right heart pressure and RVSP 108mmHG, please followup your insurance sales representative as out-pt. you are prescribed Spironolactone for management significant elevated RVSP and pulmonary HTN. You were found dehydration at the admission, which can contribute your syncope. please keep hydration at home. You was also found to have orthostatic hypotension, please slowly standup and slowly initiate your walk, and followup your PCP for further management. you was found to have fever at hospital, but you has been no fever over 48 hours, it is likely from your chronic osteomyelitis which was over a year, you are treated in hospital, your blood culture is negative for bacteremia, please continue your home antibiotics, and followup your PCP. Your afib with RVR is prescribed two new medications for control the pause: Cardizem and digoxin, please followup your PCP and your c ardiologist for further management. you had high INR when you were admitted, now your Coumadin return back to your home schedule, please followup your PCP in one week to check your PT/INR again. Care Goals: stabilization of your medical conditions Assessment: assessment as the above. - SNF / [facility] Transition Orders Admit to (Facility): [facility] Under the care of (Name): Magdaleno Greer Discharge Diagnosis: syncope, afib with RVR, dehydration, fever, pulmonary HTN, abnormal INR Medicare Certification Statement: I do not certify that Post Hospital long-term care is medically necessary on a continuing basis for any of the conditions for which she/he is receiving care during hospitalization. Notify PCP of admission and forward orders to primary provider for signature. Weight on admission and: Daily Call PCP immediately if weight increases by: 2 kg Other Notification Orders: Call PCP immediately if patient develops dyspnea, chest pain/tightness or edema. House Bowel Program: Yes Additional Bowel Program Orders: If no BM after 2 days, nurse may give M.O.M. 30ml PO PRN and/or ducolax Supp 1 NH and/or STEVE 250mg P.O., and/or senna 1-2 tabs PO. On day 3 nurse may give repeat above order until residents constipation is resolved. Annual Influenza Vaccine (between Mar 09 and October 06): Yes Two-step PPD per [facility] [phone] or approved exception documents: Yes Medication Orders: PLEASE REFER TO THE DISCHARGE MEDICATION LIST. Insulin Orders?: No - Medications New Prescriptions: Digoxin [Lanoxin] 125 mcg PO DAILY #10 tablet diltiaZEM CD [Cardizem Cd] 120 mg PO DAILY #10 capsule Spironolactone [Aldactone] 25 mg PO DAILY #10 tablet - Diet Type: Geriatric Texture: Regular Liquids: Thin May have monthly special meal: Yes - Therapies | Activity Rehabilitation Potential: Maximize functional status Activity: Activity as Tolerated Additional Instructions: you may followup your PCP when you are arrival to [facility], and followup your insurance sales representative as out-pt your ECHO reveals normal EF at 60-65% but with severe high right heart pressure and RVSP 108mmHG, please followup your insurance sales representative as out-pt. you are prescribed Spironolactone for management significant elevated RVSP and pulmonary HTN. You were found dehydration at the admission, which can contribute your syncope. please keep hydration at home. You was also found to have orthostatic hypotension, please slowly standup and slowly initiate your walk, and followup your PCP for further management. you was found to have fever at hospital, but you has been no fever over 48 hours, it is likely from your chronic osteomyelitis which was over a year, you are treated in hospital, your blood culture is negative for bacteremia, please continue your home antibiotics, and f ollowup your PCP. Your afib with RVR is prescribed two new medications for control the pause: Cardizem and digoxin, please followup your PCP and your insurance sales representative for further management. you had high INR when you were admitted, now your Coumadin return back to your home schedule, please followup your PCP in one week to check your PT/INR again. Follow Up: you may followup your medical provider at [facility] when you are arrival at. your ECHO reveals normal EF at 60-65% but with severe high right heart pressure and RVSP 108mmHG, please followup your insurance sales representative as out-pt. you are prescribed Spironolactone for management significant elevated RVSP and pulmonary HTN. You were found dehydration at the admission, which can contribute your syncope. please keep hydration at home. You was also found to have orthostatic hypotension, please slowly standup and slowly initiate your walk, and followup your PCP for further management. you was found to have fever at hospital, but you has been no fever over 48 hours, it is likely from your chronic osteomyelitis which was over a year, you are treated in hospital, your blood culture is negative for bacteremia, please continue your home antibiotics, and followup your PCP. Your afib with RVR is prescribed two new medications for control the pause: Cardizem and digoxin, please followup your PCP and your insurance sales representative for further management. you had high INR when you were admitted, now your Coumadin return back to your home schedule, please followup your PCP in one week to check your PT/INR again."
[2019-02-20] MEDS ORDERED: WARFARIN 5 MG TABLET PO SCH (14:00)
--- NOTE | 2019-02-20 14:31 | DISCHARGE SUMMARY ---
Discharge Summary Discharge Date: 02/20/19 Discharging Provider: GARCIA Primary Care Provider: Dr. Randle Condition at Discharge: Poor Discharge Disposition: 03 SNF DC/Xfer Discharge Facility Name: [facility] - DIAGNOSES Admission Diagnoses: (1) Syncope (2) Dehydration (3) Hypotension (4) A-fib (5) Elevated troponin (6) Abnormal EKG (7) Elevated INR (8) Dementia Discharge Diagnoses with Status of Each Condition: (1) Syncope stable (2)fever resolved (3) Dehydration resolved (4) Hypotension resolved (5) A-fib with RVR stable and controlled (6) Elevated troponin stable (7) Abnormal EKG stable (8) Elevated INR resolved (9) Dementia stable (10) pulmonary HTN stable (11) delirium resolved (12) chronic osteomyelitis stable - HPI History of Present Illness: Ms. Salguero is a 75 y/o female with a PMH significance for syncope, a fib on Coumadin, hx of CVA, dementia, HTN, HLD, NV, depression and anxiety, chronic lower back pain, chronic hearing loss and chronic vision loss, who present ER for complain of syncope. pt report she did not remember too much what happened to her, she state she had two episode of syncope and she lost of her consciousness when she had syncope. she denies any injury on this two times of syncope. she denies chest pain, palpitations, headache, vision change, fever, chill, shortness of breath, nausea, vomiting, abdominal pain. Per Triage nurse report pt had syncope episode at this morning when she was at toilet, and second syncope happened when she tried to standup. she was found to have low blood pressure at 78/40. pt did report she did not do well for her hydration and did not drink enough water. CXR and CT of head are remarkable. lab work in ER reveals troponin is slight elevated in high sensitive troponin test and supratherapeutic INR at 5.1. Per ER provide's chart, multiple EKGs done during ED ( but did not appear any EKG on [facility]) did not reveal ischemic changes, but it appears evidence of bigeminy. Pt is afebrile, Initially pt had low SBP at 90, now her SBP is over 100. Pt is hemodynamic stable now. pt is admitted for syncope. - HOSPITAL COURSE Hospital Course: pt was admitted for syncope evaluation and treatment. In the hospital stay, pt developed complications. Pt developed Afib with RVR. Pt was prescribed two new meds to control the pause, Digoxin and Cardizem. pt was asymptomatic when she was afib with RVR. pt also developed fever. pt's CXR and UA were unremarkable. pt's family report pt had oestomyelitis at spinal tail bone for over one year. pt was treated by her PCP. pt's family, granddaughter, declined to have further medical intervention for pt. pt was prescribed Ceftin to control the infection. Our team tried to reach pt's PCP to discuss pt's care but PCP was in the vocation, could not reach. pt also developed delirium then resolved. detail hospital course is as the followin) Syncope no syncope happened at hospital. it was likely caused by pt's significant dehydration. pt was educated for hydration (2)fever resolved. blood culture, UA culture, CXR were unremarkable. pt's family report pt had chronic osteomyelitis on her spinal tail bone for over one year. pt was treated with her PCP. pt's family decline to have further medical intervention. continue home antibiotics Ceftin, followup PCP. (3) Dehydration resolved, pt was educated for hydration (4) Hypotension it was likely caused dehydration. pt was educated for hydration (5) A-fib with RVR pt's pause was controlled after treatment at hospital. pt was prescribed Digoxin and Cardizem (6) Elevated troponin slight elevated troponin. pt denies chest pain, EKG did not reveals ST varies. p t was hemodynamic stable. pt had INR at 7.1 at the time his elevated troponin was found. All these did not indicate pt has ACS. slight elevated troponin in this high sensitivity test could be pt's baseline. (7) Abnormal EKG Conclusion/Plan: stable. pt has begeminy in EKG pt denies chest pain, palpitation, N/V, or diaphoresis. Normal person has begeminy (8) Elevated INR pt has elevated INR to 7.1, pt was given oral Vitamin K, then reconciled pt's Coumadin. pt's INR is up to 1.6 at d/c. advise pt followup PCP in one week to recheck INR (9) Dementia stable, reconcile pt's home meds Donepezil (10) pulmonary HTN pt has severe RVSP 108 mmHG and severe abnormal right ventricle pressure in pt's ECHO. pt is prescribed Spironolactone. advise pt followup PCP and dental professional to [place] (11) delirium resolved. pt is likely affected by her new stroke (12) chronic osteomyelitis pt's family report pt had oestomyelitis at spinal tail bone for over one year. pt was treated by her PCP. pt's family, granddaughter, declined to have further medical intervention for pt. pt was prescribed Ceftin to control the infection. Our team tried to reach pt's PCP to discuss pt's care but PCP was in the vocation, could not reach. Nurse recheck pt's skin. pt's skin is intact. pt's blood culture is negative for bacteremia. pt has no fever at d/c over 48 hours. pt was evaluated and treated by PT. pt walked very fast in the medical floor one day before d/c day. pt is not qualified for SNF or home health PT. social work faculty member was consulted and help pt d/c the nurse assisting facility [facility]. - ALLERGIES Allergies/Adverse Reactions: Allergies Allergy/AdvReac Type Severity Reaction Status Date / Time Penicillins Allergy Unknown Verified 02/16/19 12:14 lorazepam [From Ativan] AdvReac Anxiety Verified 02/19/19 22:51 - MEDICATIONS Home Medications: Ambulatory Orders Medication Instructions Recorded Confirmed Gabapentin [Neurontin] 300 mg PO BID 08/08/13 02/17/19 Lisinopril [Prinivil] 10 mg PO DAILY 08/08/13 02/17/19 Simvastatin [Zocor] 10 mg PO HS 08/08/13 02/17/19 Warfarin [Coumadin] 5 mg PO DAILY 08/08/13 02/18/19 Cefuroxime Axetil [Cefuroxime] 500 mg PO BID 04/15/18 02/17/19 Citalopram Hydrobromide 10 mg PO DAILY 04/15/18 02/17/19 [Citalopram HBr] Cholecalciferol (Vitamin D3) 4,000 unit PO DAILY 02/17/19 02/17/19 [Vitamin D3] Hydrocodone/Acetaminophen 1 tab PO Q4H PRN 02/17/19 02/17/19 [Hydrocodone-Acetamin 5-325 mg] Digoxin [Lanoxin] 125 mcg PO DAILY #10 tablet 02/20/19 Sotalol [Betapace] 80 mg PO BID 02/20/19 02/20/19 Spironolactone [Aldactone] 25 mg PO DAILY #10 tablet 02/20/19 diltiaZEM CD [Cardizem Cd] 120 mg PO DAILY #10 capsule 02/20/19 - PHYSICAL EXAM AT DISCHARGE General Appearance: positive: No acute distress, Alert. negative: Lethargic Eyes Bilateral: positive: Normal inspection, PERRL, No lid inflammation, Conjunctivae nml, No scleral icterus ENT: positive: ENT inspection nml, Pharynx nml, No signs of dehydration. negative: Purulent nasal drainage, Pharyngeal erythema, Oral lesions Neck: positive: Nml inspection, Thyroid nml, No JVD, Trachea midline. negative: Thyromegaly, Lymphadenopathy (R), Lymphadenopathy (L), Stiff neck, Swellin g/bruising, Tracheal deviation Respiratory: positive: Chest non-tender, No respiratory distress, Breath sounds nml. negative: Wheezes, Rales, Rhonchi Cardiovascular: positive: Regular rate & rhythm, No murmur, No gallop. negative: Irregularly irregular, Extrasystoles, Tachycardia, Bradycardia, JVD present, Systolic murmur, Diastolic murmur Peripheral Pulses: positive: 2+ Abdomen: positive: Non-tender, No organomegaly, Nml bowel sounds, No distention. negative: Tenderness, Guarding, Rebound Back: positive: Nml inspection. negative: CVA tenderness (R), CVA tenderness (L) Skin: positive: Color nml, No rash, Warm, Dry. negative: Cyanosis, Diaphoresis, Pallor Extremities: positive: Non-tender, Full ROM, Nml appearance. negative: Calf tenderness, Joint swelling, Reece's sign/cords Neurologic/Psychiatric: positive: Motor nml, Sensation nml, Mood/affect nml. negative: Weakness, Sensory loss, Facial droop, Slurred/abnml speech, Depressed mood/affect - LABS Result Diagrams: 02/20/19 05:40 02/20/19 05:40 - SEPSIS Current Stage of Sepsis: Ruled out - FOLLOW UP Follow Up: you may followup your PCP when you are arrival to [facility], and followup your dental professional as out-pt your ECHO reveals normal EF at 60-65% but with severe high right heart pressure and RVSP 108mmHG, please followup your dental professional as out-pt. you are prescribed Spironolactone for management significant elevated RVSP and pulmonary HTN. You were found dehydration at the admission, which can contribute your syncope. please keep hydration at home. You was also found to have orthostatic hypotension, please slowly standup and slowly initiate your walk, and followup your PCP for further management. you was found to have fever at hospital, but you has been no fever over 48 hours, it is likely from your chronic osteomyelitis which was over a year, you are treated in hospital, your blood c ulture is negative for bacteremia, please continue your home antibiotics, and followup your PCP. Your afib with RVR is prescribed two new medications for control the pause: Cardizem and digoxin, please followup your PCP and your dental professional for further management. you had high INR when you were admitted, now your Coumadin return back to your home schedule, please followup your PCP in one week to check your PT/INR again. - TIME SPENT Time Spent in Discharge (Minutes): 60
[2019-02-20 16:21] VITALS: BP 127/85
== END 2019-02-20 16:57 | disposition home or self-care (01) | DRG 312 ==
LOC: EDUNIT# → ED 12:06 → MS2 15:03 → OBSVTOIN 02-18 18:40
PROVIDERS: ADMIT Nurse Practitioner Gerontology; ATTEND Nurse Practitioner Gerontology
DX: I95.1 Orthostatic hypotension (principal); R00.8 Other abnormalities of heart beat; R50.9 Fever, unspecified; M46.28 Osteomyelitis of vertebra, sacral and sacrococcygeal region; R79.89 Other specified abnormal findings of blood chemistry; D72.819 Decreased white blood cell count, unspecified; E86.0 Dehydration; I25.10 Atherosclerotic heart disease of native coronary artery without angina pectoris; I48.0 Paroxysmal atrial fibrillation; F03.90 Unspecified dementia, unspecified severity, without behavioral disturbance, psychotic disturbance, mood disturbance, and anxiety; I27.20 Pulmonary hypertension, unspecified; I10 Essential (primary) hypertension; R41.0 Disorientation, unspecified; E78.5 Hyperlipidemia, unspecified; I25.2 Old myocardial infarction; F32.9 Major depressive disorder, single episode, unspecified; F41.9 Anxiety disorder, unspecified; Z66 Do not resuscitate; M54.5 Low back pain; G89.29 Other chronic pain; Z82.49 Family history of ischemic heart disease and other diseases of the circulatory system; Z79.899 Other long term (current) drug therapy; Z79.01 Long term (current) use of anticoagulants; Z91.81 History of falling; Z86.73 Personal history of transient ischemic attack (TIA), and cerebral infarction without residual deficits; Z63.79 Other stressful life events affecting family and household
CPT/HCPCS: 36415; 51701; 70450; 71045; 80048; 80053; 81001; 83605; 83690; 83735; 84443; 84484; 85025; 85610; 85730; 87040; 87086; 93005; 93306; 96361; 96365; 96366; 96375; 96376; 99284; 99285; A9270; G0378; J1650; 81003

== ENCOUNTER 2019-03-01 08:20 | Outpatient (CLI) | payer MEDICARE ==
[2019-03-01 10:00] LABS: INR 4.5 (0.8-1.2)
== END 2019-03-01 08:21 | disposition home or self-care (01) ==
LOC: LAB 08:20
PROVIDERS: ATTEND Nurse Practitioner
DX: I63.9 Cerebral infarction, unspecified (principal); Z79.01 Long term (current) use of anticoagulants
CPT/HCPCS: 36415; 85610

== ENCOUNTER 2019-03-03 13:17 | Outpatient (CLI) | payer MEDICARE | END 2019-03-03 13:18 | disposition home or self-care (01) | LOC: LAB.S 13:17 | PROVIDERS: ATTEND Nurse Practitioner | DX: I63.9 Cerebral infarction, unspecified (principal); Z79.01 Long term (current) use of anticoagulants | CPT/HCPCS: 85610 ==

== ENCOUNTER 2019-03-06 14:15 | Outpatient (CLI) | payer MEDICARE | END 2019-03-06 14:16 | disposition home or self-care (01) | LOC: LAB.S 14:15 | PROVIDERS: ATTEND Family Medicine | DX: I63.9 Cerebral infarction, unspecified (principal); Z79.01 Long term (current) use of anticoagulants; I48.91 Unspecified atrial fibrillation | CPT/HCPCS: 85610 ==

== ENCOUNTER 2019-03-14 11:47 | Outpatient (CLI) | payer MEDICARE | END 2019-03-14 11:48 | disposition home or self-care (01) | LOC: LAB.S 11:47 | PROVIDERS: ATTEND Family Medicine | DX: I63.9 Cerebral infarction, unspecified (principal); Z79.01 Long term (current) use of anticoagulants | CPT/HCPCS: 85610 ==

== ENCOUNTER 2019-03-19 11:13 | Outpatient (CLI) | payer MEDICARE | END 2019-03-19 11:14 | disposition home or self-care (01) | LOC: LAB.S 11:13 | PROVIDERS: ATTEND Internal Medicine | DX: I48.91 Unspecified atrial fibrillation (principal); M54.5 Low back pain; M46.28 Osteomyelitis of vertebra, sacral and sacrococcygeal region; F32.9 Major depressive disorder, single episode, unspecified; E78.5 Hyperlipidemia, unspecified; I10 Essential (primary) hypertension; R41.3 Other amnesia; G47.30 Sleep apnea, unspecified | CPT/HCPCS: 85610 ==

== ENCOUNTER 2019-03-28 10:15 | Outpatient (CLI) | payer MEDICARE | END 2019-03-28 10:16 | disposition home or self-care (01) | LOC: LAB.S 10:15 | PROVIDERS: ATTEND Internal Medicine | DX: I48.91 Unspecified atrial fibrillation (principal); M54.5 Low back pain; M46.28 Osteomyelitis of vertebra, sacral and sacrococcygeal region; F32.9 Major depressive disorder, single episode, unspecified; E78.5 Hyperlipidemia, unspecified; I10 Essential (primary) hypertension; R41.3 Other amnesia; G47.30 Sleep apnea, unspecified | CPT/HCPCS: 85610 ==

== ENCOUNTER 2019-04-03 11:46 | Outpatient (CLI) | payer MEDICARE | END 2019-04-03 11:47 | disposition home or self-care (01) | LOC: LAB.S 11:46 | PROVIDERS: ATTEND Internal Medicine | DX: I48.91 Unspecified atrial fibrillation (principal); M54.5 Low back pain; M46.28 Osteomyelitis of vertebra, sacral and sacrococcygeal region; F32.9 Major depressive disorder, single episode, unspecified; E78.5 Hyperlipidemia, unspecified; I10 Essential (primary) hypertension; R41.3 Other amnesia; G47.30 Sleep apnea, unspecified | CPT/HCPCS: 85610 ==

== ENCOUNTER 2019-04-10 10:16 | Outpatient (CLI) | payer MEDICARE | END 2019-04-10 10:17 | disposition home or self-care (01) | LOC: LAB.S 10:16 | PROVIDERS: ATTEND Internal Medicine | DX: I48.91 Unspecified atrial fibrillation (principal); M54.5 Low back pain; M46.28 Osteomyelitis of vertebra, sacral and sacrococcygeal region; F32.9 Major depressive disorder, single episode, unspecified; E78.5 Hyperlipidemia, unspecified; I10 Essential (primary) hypertension; R41.3 Other amnesia; G47.30 Sleep apnea, unspecified | CPT/HCPCS: 85610 ==

== ENCOUNTER 2019-04-17 14:41 | Outpatient (CLI) | payer MEDICARE | END 2019-04-17 14:42 | disposition home or self-care (01) | LOC: LAB.S 14:41 | PROVIDERS: ATTEND Internal Medicine | DX: I48.91 Unspecified atrial fibrillation (principal); M54.5 Low back pain; M46.28 Osteomyelitis of vertebra, sacral and sacrococcygeal region; F32.9 Major depressive disorder, single episode, unspecified; E78.5 Hyperlipidemia, unspecified; I10 Essential (primary) hypertension; R41.3 Other amnesia; G47.30 Sleep apnea, unspecified | CPT/HCPCS: 85610 ==

== ENCOUNTER 2019-04-24 11:42 | Outpatient (CLI) | payer MEDICARE | END 2019-04-24 11:43 | disposition home or self-care (01) | LOC: LAB.S 11:42 | PROVIDERS: ATTEND Internal Medicine | DX: I48.91 Unspecified atrial fibrillation (principal); M54.5 Low back pain; M46.28 Osteomyelitis of vertebra, sacral and sacrococcygeal region; F32.9 Major depressive disorder, single episode, unspecified; E78.5 Hyperlipidemia, unspecified; I10 Essential (primary) hypertension; R41.3 Other amnesia; G47.30 Sleep apnea, unspecified | CPT/HCPCS: 85610 ==

== ENCOUNTER 2019-05-01 11:46 | Outpatient (CLI) | payer MEDICARE | END 2019-05-01 11:47 | disposition home or self-care (01) | LOC: LAB.S 11:46 | PROVIDERS: ATTEND Internal Medicine | DX: I48.91 Unspecified atrial fibrillation (principal); I10 Essential (primary) hypertension; M54.5 Low back pain; M46.28 Osteomyelitis of vertebra, sacral and sacrococcygeal region; F32.9 Major depressive disorder, single episode, unspecified; E78.5 Hyperlipidemia, unspecified; R41.3 Other amnesia; G47.30 Sleep apnea, unspecified | CPT/HCPCS: 85610 ==

== ENCOUNTER 2019-05-08 10:28 | Outpatient (CLI) | payer MEDICARE | END 2019-05-08 23:59 | disposition home or self-care (01) | LOC: LAB.S 10:28 | PROVIDERS: ATTEND Internal Medicine | DX: I48.91 Unspecified atrial fibrillation (principal); M54.5 Low back pain; M46.28 Osteomyelitis of vertebra, sacral and sacrococcygeal region; F32.9 Major depressive disorder, single episode, unspecified; E78.5 Hyperlipidemia, unspecified; I10 Essential (primary) hypertension; R41.3 Other amnesia; G47.30 Sleep apnea, unspecified | CPT/HCPCS: 85610 ==

== ENCOUNTER 2019-05-15 10:17 | Outpatient (CLI) | payer MEDICARE | END 2019-05-15 10:18 | disposition home or self-care (01) | LOC: LAB.S 10:17 | PROVIDERS: ATTEND Internal Medicine | DX: I48.91 Unspecified atrial fibrillation (principal); M54.5 Low back pain; M46.28 Osteomyelitis of vertebra, sacral and sacrococcygeal region; F32.9 Major depressive disorder, single episode, unspecified; E78.5 Hyperlipidemia, unspecified; I10 Essential (primary) hypertension; R41.3 Other amnesia; G47.30 Sleep apnea, unspecified | CPT/HCPCS: 85610 ==

== ENCOUNTER 2019-05-22 14:51 | Outpatient (CLI) | payer MEDICARE | END 2019-05-22 14:52 | disposition home or self-care (01) | LOC: LAB.S 14:51 | PROVIDERS: ATTEND Internal Medicine | DX: I48.91 Unspecified atrial fibrillation (principal); M54.5 Low back pain; M46.28 Osteomyelitis of vertebra, sacral and sacrococcygeal region; F32.9 Major depressive disorder, single episode, unspecified; E78.5 Hyperlipidemia, unspecified; I10 Essential (primary) hypertension; R41.3 Other amnesia; G47.30 Sleep apnea, unspecified | CPT/HCPCS: 85610 ==

== ENCOUNTER 2019-05-29 10:17 | Outpatient (CLI) | payer MEDICARE | END 2019-05-29 10:18 | disposition home or self-care (01) | LOC: LAB.S 10:17 | PROVIDERS: ATTEND Internal Medicine | DX: I48.91 Unspecified atrial fibrillation (principal); M54.5 Low back pain; M46.28 Osteomyelitis of vertebra, sacral and sacrococcygeal region; F32.9 Major depressive disorder, single episode, unspecified; E78.5 Hyperlipidemia, unspecified; I10 Essential (primary) hypertension; R41.3 Other amnesia; G47.30 Sleep apnea, unspecified | CPT/HCPCS: 85610 ==

== ENCOUNTER 2019-06-04 10:30 | Outpatient (CLI) | payer MEDICARE | END 2019-06-04 10:31 | disposition home or self-care (01) | LOC: LAB.S 10:30 | PROVIDERS: ATTEND Internal Medicine | DX: I48.91 Unspecified atrial fibrillation (principal); M54.5 Low back pain; M46.28 Osteomyelitis of vertebra, sacral and sacrococcygeal region; F32.9 Major depressive disorder, single episode, unspecified; E78.5 Hyperlipidemia, unspecified; I10 Essential (primary) hypertension; R41.3 Other amnesia; G47.30 Sleep apnea, unspecified | CPT/HCPCS: 85610 ==

== ENCOUNTER 2019-06-12 15:35 | Outpatient (CLI) | payer MEDICARE | END 2019-06-12 15:36 | disposition home or self-care (01) | LOC: LAB.S 15:35 | PROVIDERS: ATTEND Internal Medicine | DX: I48.91 Unspecified atrial fibrillation (principal); M54.5 Low back pain; M46.28 Osteomyelitis of vertebra, sacral and sacrococcygeal region; F32.9 Major depressive disorder, single episode, unspecified; E78.5 Hyperlipidemia, unspecified; I10 Essential (primary) hypertension; R41.3 Other amnesia; G47.30 Sleep apnea, unspecified | CPT/HCPCS: 85610 ==

== ENCOUNTER 2019-06-18 15:48 | Outpatient (CLI) | payer MEDICARE | END 2019-06-18 15:49 | disposition home or self-care (01) | LOC: LAB.S 15:48 | PROVIDERS: ATTEND Internal Medicine | DX: I48.91 Unspecified atrial fibrillation (principal); F32.9 Major depressive disorder, single episode, unspecified; E78.5 Hyperlipidemia, unspecified; I10 Essential (primary) hypertension; G47.30 Sleep apnea, unspecified; R41.3 Other amnesia | CPT/HCPCS: 85610 ==

== ENCOUNTER 2019-06-26 11:04 | Outpatient (CLI) | payer MEDICARE ==
[2019-06-26 17:51] LABS: BUN - BLOOD UREA NITROGEN 19 mg/dL (6-20); CALCIUM 9.5 mg/dL (8.5-10.3); CARBON DIOXIDE - CO2 31 mmol/L (21-32); CHLORIDE 102 mmol/L (101-111); CHOL/HDL RATIO 2.7 (<4.4); CHOLESTEROL 180 mg/dL; CREATININE 0.8 mg/dL (0.4-1.0); GFR - MDRD 69 (>89); GLUCOSE 92 mg/dL (70-100); HDL CHOLESTEROL 67 mg/dL; LDL CHOLESTEROL,CALCULATED 92 mg/dL; LDL/HDL RATIO 1.4 (<4.4); MAGNESIUM 2.1 mg/dL (1.7-2.8); SODIUM 139 mmol/L (135-145); VLDL CHOLESTEROL 21 mg/dL
== END 2019-06-26 11:05 | disposition home or self-care (01) ==
LOC: LAB.S 11:04
PROVIDERS: ATTEND Internal Medicine
DX: I48.91 Unspecified atrial fibrillation (principal); M54.5 Low back pain; M46.28 Osteomyelitis of vertebra, sacral and sacrococcygeal region; F32.9 Major depressive disorder, single episode, unspecified; E78.5 Hyperlipidemia, unspecified; I10 Essential (primary) hypertension; R41.3 Other amnesia; G47.30 Sleep apnea, unspecified; G89.29 Other chronic pain
CPT/HCPCS: 36415; 80048; 80061; 83721; 83735; 85610

== ENCOUNTER 2019-07-03 11:01 | Outpatient (CLI) | payer MEDICARE | END 2019-07-03 11:02 | disposition home or self-care (01) | LOC: LAB.S 11:01 | PROVIDERS: ATTEND Internal Medicine | DX: I48.91 Unspecified atrial fibrillation (principal); M54.5 Low back pain; M46.28 Osteomyelitis of vertebra, sacral and sacrococcygeal region; F32.9 Major depressive disorder, single episode, unspecified; E78.5 Hyperlipidemia, unspecified; I10 Essential (primary) hypertension; R41.3 Other amnesia; G47.30 Sleep apnea, unspecified | CPT/HCPCS: 85610 ==

== ENCOUNTER 2019-07-10 10:21 | Outpatient (CLI) | payer MEDICARE | END 2019-07-10 23:59 | disposition home or self-care (01) | LOC: LAB.S 10:21 | PROVIDERS: ATTEND Internal Medicine | DX: I48.91 Unspecified atrial fibrillation (principal); M54.5 Low back pain; M46.28 Osteomyelitis of vertebra, sacral and sacrococcygeal region; F32.9 Major depressive disorder, single episode, unspecified; E78.5 Hyperlipidemia, unspecified; I10 Essential (primary) hypertension; R41.3 Other amnesia; G47.30 Sleep apnea, unspecified | CPT/HCPCS: 85610 ==

== ENCOUNTER 2019-07-17 09:36 | Outpatient (CLI) | payer MEDICARE | END 2019-07-17 09:37 | disposition home or self-care (01) | LOC: LAB.S 09:36 | PROVIDERS: ATTEND Internal Medicine | DX: I48.91 Unspecified atrial fibrillation (principal); M54.5 Low back pain; M46.28 Osteomyelitis of vertebra, sacral and sacrococcygeal region; F32.9 Major depressive disorder, single episode, unspecified; E78.5 Hyperlipidemia, unspecified; I10 Essential (primary) hypertension; R41.3 Other amnesia; G47.30 Sleep apnea, unspecified | CPT/HCPCS: 85610 ==

== ENCOUNTER 2019-07-24 09:43 | Outpatient (CLI) | payer MEDICARE | END 2019-07-24 09:44 | disposition home or self-care (01) | LOC: LAB.S 09:43 | PROVIDERS: ATTEND Internal Medicine | DX: I48.91 Unspecified atrial fibrillation (principal); M54.5 Low back pain; M46.28 Osteomyelitis of vertebra, sacral and sacrococcygeal region; F32.9 Major depressive disorder, single episode, unspecified; E78.5 Hyperlipidemia, unspecified; I10 Essential (primary) hypertension; R41.3 Other amnesia; G47.30 Sleep apnea, unspecified | CPT/HCPCS: 85610 ==

== ENCOUNTER 2019-07-31 09:04 | Outpatient (CLI) | payer MEDICARE | END 2019-07-31 09:05 | disposition home or self-care (01) | LOC: LAB.S 09:04 | PROVIDERS: ATTEND Internal Medicine | DX: I48.91 Unspecified atrial fibrillation (principal); M54.5 Low back pain; M46.28 Osteomyelitis of vertebra, sacral and sacrococcygeal region; F32.9 Major depressive disorder, single episode, unspecified; E78.5 Hyperlipidemia, unspecified; I10 Essential (primary) hypertension; R41.3 Other amnesia; G47.30 Sleep apnea, unspecified | CPT/HCPCS: 85610 ==

== ENCOUNTER 2019-08-07 09:19 | Outpatient (CLI) | payer MEDICARE | END 2019-08-07 09:20 | disposition home or self-care (01) | LOC: LAB.S 09:19 | PROVIDERS: ATTEND Internal Medicine | DX: I48.91 Unspecified atrial fibrillation (principal); M54.5 Low back pain; M46.28 Osteomyelitis of vertebra, sacral and sacrococcygeal region; F32.9 Major depressive disorder, single episode, unspecified; E78.5 Hyperlipidemia, unspecified; I10 Essential (primary) hypertension; R41.3 Other amnesia; G47.30 Sleep apnea, unspecified | CPT/HCPCS: 85610 ==

== ENCOUNTER 2019-08-14 09:08 | Outpatient (CLI) | payer MEDICARE | END 2019-08-14 23:59 | disposition home or self-care (01) | LOC: LAB.S 09:08 | PROVIDERS: ATTEND Internal Medicine | DX: I48.91 Unspecified atrial fibrillation (principal); M54.5 Low back pain; M46.28 Osteomyelitis of vertebra, sacral and sacrococcygeal region; F32.9 Major depressive disorder, single episode, unspecified; E78.5 Hyperlipidemia, unspecified; I10 Essential (primary) hypertension; R41.3 Other amnesia; G47.30 Sleep apnea, unspecified | CPT/HCPCS: 85610 ==

== ENCOUNTER 2019-08-21 09:14 | Outpatient (CLI) | payer MEDICARE | END 2019-08-21 09:15 | disposition home or self-care (01) | LOC: LAB.S 09:14 | PROVIDERS: ATTEND Internal Medicine | DX: I48.91 Unspecified atrial fibrillation (principal); M54.5 Low back pain; M46.28 Osteomyelitis of vertebra, sacral and sacrococcygeal region; F32.9 Major depressive disorder, single episode, unspecified; E78.5 Hyperlipidemia, unspecified; I10 Essential (primary) hypertension; R41.3 Other amnesia; G47.30 Sleep apnea, unspecified | CPT/HCPCS: 85610 ==

== ENCOUNTER 2019-08-28 10:56 | Outpatient (CLI) | payer MEDICARE | END 2019-08-28 10:57 | disposition home or self-care (01) | LOC: LAB.S 10:56 | PROVIDERS: ATTEND Internal Medicine | DX: I48.91 Unspecified atrial fibrillation (principal); M54.5 Low back pain; M46.28 Osteomyelitis of vertebra, sacral and sacrococcygeal region; F32.9 Major depressive disorder, single episode, unspecified; E78.5 Hyperlipidemia, unspecified; I10 Essential (primary) hypertension; R41.3 Other amnesia; G47.30 Sleep apnea, unspecified | CPT/HCPCS: 85610 ==

== ENCOUNTER 2020-01-23 12:04 | Emergency (ER) | payer MEDICARE ==
--- NOTE | 2020-01-23 12:40 | XRAY Report ---
PROCEDURE: Humerus RT INDICATIONS: pain in arm and shoulder TECHNIQUE: 2 views of the humerus were acquired. COMPARISON: Chest x-ray 02/21/2020 FINDINGS: Bones: No fractures or dislocations. No suspicious bony lesions. Humeral head is high riding. Madhuri re acromioclavicular and glenohumeral degenerative narrowing is present. Soft tissues: No suspicious soft tissue calcifications. IMPRESSION: 1. Severe acromioclavicular and glenohumeral degenerative change. 2. Humeral head is high riding which can be seen with rotator cuff pathology. As clinically indicated , MRI may be obtained for additional evaluation. Reviewed by: Claire Logan MD on 01/23/2020 12:38 PM PDT Approved by: Claire Logan MD on 01/23/2020 12:38 PM PDT Station ID: [id number]
--- NOTE | 2020-01-23 13:50 | ED Physician Documentation ---
PD HPI UPPER EXT INJURY - Stated complaint Stated Complaint: RT ARM PX - Chief complaint Chief Complaint: Ext Problem - History obtained from History obtained from: Patient - History of Present Illness Location: Right, Shoulder Type of injury: Other (she noted onset of right shoulder pain that gradually worsened. Uses that arm for her cane most of the time. Otherwise no change in activity.). No: Fall, Twist Where injury occurred: Home Timing - onset: How many weeks ago (initially bothered her at times 2-3 weeks ago, but worse and consistent the past several days.) Timing - duration: Weeks Timing - details: Gradual onset, Still present, Waxing and waning Worsened by: Moving (reaching and abduction of arm, pain at anterior shoulder.). No: Palpating Associated symptoms: No: Weakness, Numbness, Swelling Contributing factors: Anticoagulated. No: Prior ortho surgery, Prosthetic joint Similar symptoms before: Has not had sx before Review of Systems Constitutional: denies: Fever, Chills, Myalgias Nose: denies: Rhinorrhea / runny nose, Congestion Throat: denies: Sore throat Respiratory: denies: Cough Skin: denies: Rash, Lesions Musculoskeletal: denies: Neck pain Neurologic: denies: Focal weakness, Numbness PD PAST MEDICAL HISTORY - Past Medical History Cardiovascular: Hypertension, High cholesterol, DC, Atrial fibrillation Respiratory: None Neuro: CVA Endocrine/Autoimmune: None GI: None : None HEENT: Chronic vision loss, Chronic hearing loss Psych: Depression, Anxiety Musculoskeletal: Other Derm: None - Past Surgical History Past Surgical History: Yes Ortho: Hip replacement HEENT: Tonsil/Adenoidectomy - Present Medications Home Medications: Ambulatory Orders Medication Instructions Recorded Confirmed Gabapentin [Neurontin] 300 mg PO BID 08/08/13 02/17/19 Lisinopril [Prinivil] 10 mg PO DAILY 08/08/13 02/17/19 Simvastatin [Zocor] 10 mg PO HS 08/08/13 02/17/19 Warfarin [Coumadin] 5 mg PO DAILY 08/08/13 02/18/19 Cefuroxime Axetil [Cefuroxime] 500 mg PO BID 04/15/18 02/17/19 Citalopram Hydrobromide 10 mg PO DAILY 04/15/18 02/17/19 [Citalopram HBr] Cholecalciferol (Vitamin D3) 4,000 unit PO DAILY 02/17/19 02/17/19 [Vitamin D3] Hydrocodone/Acetaminophen 1 tab PO Q4H PRN 02/17/19 02/17/19 [Hydrocodone-Acetamin 5-325 mg] Digoxin [Lanoxin] 125 mcg PO DAILY #10 tablet 02/20/19 Sotalol [Betapace] 80 mg PO BID 02/20/19 02/20/19 Spironolactone [Aldactone] 25 mg PO DAILY #10 tablet 02/20/19 diltiaZEM CD [Cardizem Cd] 120 mg PO DAILY #10 capsule 02/20/19 Hydrocodone/Acetaminophen [Tolono 1 each PO Q6H PRN #12 tablet 01/23/20 5-325 Tablet] - Allergies Allergies/Adverse Reactions: Allergies Allergy/AdvReac Type Severity Reaction Status Date / Time Penicillins Allergy Unknown Verified 01/23/20 12:15 lorazepam [From Ativan] AdvReac Anxiety Verified 01/23/20 12:15 - Social History Does the pt smoke?: No Smoking Status: Never smoker Does the pt drink ETOH?: No Does the pt have substance abuse?: No - Immunizations Immunizations are current?: Yes - POLST Patient has POLST: No POLST Status: DNR PD ED PE NORMAL - Vitals Vital signs reviewed: Yes - General General: Alert and oriented X 3, No acute distress, Well developed/nourished - Neck Neck: Supple, no meningeal sign, No bony TTP - Derm Derm: Normal color, Warm and dry, No rash - Extremities Extremities: Other (right shoulder tender anterior aspect. Pain with rotational movements. Slight cellophane feeling anterior shoulder with ROM of the shoulder likely c/w tendonitis. Not tender at AC area. ) - Neuro Neuro: No motor deficit, No sensory deficit Results - Vitals Vitals: Vital Signs - 24 hr 01/23/20 01/23/20 12:16 14:51 Temperature 36.9 C 36.2 C L Heart Rate 62 59 L Respiratory 16 18 Rate Blood Pressure 151/77 H 161/65 H O2 Saturation 96 96 Oxygen O2 Source Room air - Rads (name of study) right shoulder Radiology: Prelim report reviewed (severe arthritic changes AC and glenohumeral head. No fracture. high riding humeral head suggestive rotator cuff problem. ), See rad report Departure - Departure Disposition: 01 Home, Self Care Clinical Impression: Rotator cuff tendonitis Qualifiers: Laterality: right Qualified Code(s): M75.81 - Other shoulder lesions, right shoulder Condition: Stable Record reviewed to determine appropriate education?: Yes Instructions: Rotator Cuff Injury Follow-Up: Joseph Lucas MD [Primary Care Provider] - Prescriptions: Hydrocodone/Acetaminophen [Tolono 5-325 Tablet] 1 each PO Q6H PRN #12 tablet PRN Reason: Pain Comments: Use the sling periodically for the shoulder to reduce motion at times. Do not wear it all the time as ill cause your shoulder to stiffen up too much. Use your walker with the left hand predominantly. I think this is shoulder tendinitis/irritation of the tendon just from the use of it causing an irritation. I think it will improve with the injection we did as well as modified use and adding Tylenol or hydrocodone if needed for pain as well. Recheck if not improved well over the next several days and resolved within a week. Discharge Date/Time: 01/23/20 16:14
[2020-01-23] MEDS ORDERED: TRIAMCINOLONE 40 MG/ML VIAL IM STA (14:32)
[2020-01-23] MEDS ORDERED: ACETAMINOPHEN 325 MG TABLET PO STA (14:32)
[2020-01-23] MEDS ORDERED: NAPROXEN 250 MG TABLET PO STA (14:32)
[2020-01-23 14:52] VITALS: BP 161/65
== END 2020-01-23 16:14 | disposition home or self-care (01) ==
LOC: ED 12:04
DX: M25.811 Other specified joint disorders, right shoulder (principal); I10 Essential (primary) hypertension; I48.91 Unspecified atrial fibrillation; Z79.01 Long term (current) use of anticoagulants; Z66 Do not resuscitate
CPT/HCPCS: 73060; 96372; 99283; 99284; A9270

== ENCOUNTER 2020-02-20 12:34 | Emergency (ER) | payer MEDICARE ==
[2020-02-20 13:20] LABS: BASOPHILS % (AUTO) 0.6 %; EOSINOPHILS # (AUTO) 0.2 10^3/uL (0.0-0.7); EOSINOPHILS % (AUTO) 4.1 %; HGB - HEMOGLOBIN 14.1 g/dL (12.0-16.0); LYMPHOCYTES # (AUTO) 1.7 10^3/uL (1.5-3.5); MEAN PLATELET VOLUME 10.7 fL (7.9-10.8); MONOCYTES # (AUTO) 0.6 10^3/uL (0.0-1.0); NEUTROPHILS # (AUTO) 2.8 10^3/uL (1.5-6.6); NEUTROPHILS % (AUTO) 53.1 %; PLT - PLATELET COUNT 147 10^3/uL (130-450); RED CELL DISTRIBUTION WIDTH 14.9 % (12.0-15.0); WHITE BLOOD COUNT 5.4 x10^3/uL (4.8-10.8)
[2020-02-20] MEDS ORDERED: SODIUM CHLORIDE 0.9% 1,000 ML IV STA ×2 (13:25)
[2020-02-20 13:27] LABS: GLUCOSE, URINE (UA) NEGATIVE (NEGATIVE); KETONES,URINE (UA) TRACE mg/dL (NEGATIVE); LEUKOCYTE ESTERASE, URINE NEGATIVE (NEGATIVE); NITRITE,URINE NEGATIVE (NEGATIVE); OCCULT BLOOD,URINE NEGATIVE (NEGATIVE); PROTEIN,URINE NEGATIVE (NEGATIVE); UROBILINOGEN,URINE 0.2 (NORMAL) E.U./dL (NORMAL)
[2020-02-20 13:28] LABS: INR 1.2 (0.8-1.2); PT - PROTHROMBIN TIME 13.1 secs (9.9-12.6)
[2020-02-20 13:28] LABS: BILIRUBIN,URINE NEGATIVE (NEGATIVE); CLARITY,URINE CLEAR (CLEAR); ICTOTEST,URINE NEGATIVE
--- NOTE | 2020-02-20 13:29 | ED Physician Documentation ---
History of Present Illness - Stated complaint Stated Complaint: CONFUSION - HX OF STROKE - Chief complaint Chief Complaint: Neuro - History obtained from History obtained from: Patient, Family - History of Present Illness Timing: How many weeks ago (1) Pain level max: 0 Pain level now: 0 - Additonal information Additional information: Family states that they recently took her home from an assisted living facility. States decreased PO intake. She normally walks with a cane, but has seemed more unsteady on her feet over the past week or so. This morning she had confusion when she woke up. This lasted approximately 1 to 2 hours. She was having difficulty walking and using both of her hands. There were no lateralizing symptoms. Denies any trauma. No vomiting. No fevers. No cough. No changes to her medication. Currently she feels normal. Nothing makes it better or worse. Review of Systems Ten Systems: 10 systems reviewed and negative Constitutional: reports: Reviewed and negative. denies: Fever, Chills Nose: denies: Rhinorrhea / runny nose, Congestion Throat: denies: Sore throat Cardiac: denies: Chest pain / pressure, Palpitations Respiratory: denies: Dyspnea, Cough, Wheezing GI: denies: Abdominal Pain, Nausea, Vomiting, Diarrhea : denies: Dysuria, Frequency, Hesitancy Skin: denies: Rash Musculoskeletal: denies: Neck pain, Back pain, Extremity pain, Joint pain Neurologic: reports: Generalized weakness, Confused, Altered mental status. denies: Focal weakness, Numbness, Head injury, LOC PD PAST MEDICAL HISTORY - Past Medical History Cardiovascular: Hypertension, High cholesterol, [place], Atrial fibrillation Respiratory: None Neuro: CVA Endocrine/Autoimmune: None GI: None : None HEENT: Chronic vision loss, Chronic hearing loss Psych: Depression, Anxiety Musculoskeletal: Other Derm: None - Past Surgical History Past Surgical History: Yes Ortho: Hip replacement HEENT: Tonsil/Adenoidectomy - Present Medications Home Medications: Ambulatory Orders Medication Instructions Recorded Confirmed Gabapentin [Neurontin] 300 mg PO BID 08/08/13 02/17/19 Lisinopril [Prinivil] 10 mg PO DAILY 08/08/13 02/17/19 Simvastatin [Zocor] 10 mg PO HS 08/08/13 02/17/19 Warfarin [Coumadin] 5 mg PO DAILY 08/08/13 02/18/19 Cefuroxime Axetil [Cefuroxime] 500 mg PO BID 04/15/18 02/17/19 Citalopram Hydrobromide 10 mg PO DAILY 04/15/18 02/17/19 [Citalopram HBr] Cholecalciferol (Vitamin D3) 4,000 unit PO DAILY 02/17/19 02/17/19 [Vitamin D3] Hydrocodone/Acetaminophen 1 tab PO Q4H PRN 02/17/19 02/17/19 [Hydrocodone-Acetamin 5-325 mg] Digoxin [Lanoxin] 125 mcg PO DAILY #10 tablet 02/20/19 Sotalol [Betapace] 80 mg PO BID 02/20/19 02/20/19 Spironolactone [Aldactone] 25 mg PO DAILY #10 tablet 02/20/19 [id number] CD [Cardizem Cd] 120 mg PO DAILY #10 capsule 02/20/19 Hydrocodone/Acetaminophen [[place] 1 each PO Q6H PRN #12 tablet 01/23/20 5-325 Tablet] - Allergies Allergies/Adverse Reactions: Allergies Allergy/AdvReac Type Severity Reaction Status Date / Time Penicillins Allergy Unknown Verified 02/20/20 12:50 lorazepam [From Ativan] AdvReac Anxiety Verified 02/20/20 12:50 - Social History Does the pt smoke?: No Smoking Status: Never smoker Does the pt drink ETOH?: No Does the pt have substance abuse?: No - Immunizations Immunizations are current?: Yes - POLST Patient has POLST: No POLST Status: DNR PD ED PE NORMAL - Vitals Vital signs reviewed: Yes - General General: Alert and oriented X 3, No acute distress, Well developed/nourished - HEENT HEENT: Atraumatic, PERRL, Ears normal, Moist mucous membranes, Pharynx benign - Neck Neck: Supple, no meningeal sign, No bony TTP - Cardiac Cardiac: RRR, No murmur, Strong equal pulses - Respiratory Respiratory: No respiratory distress, Clear bilaterally - Abdomen Abdomen: Soft, Non tender, Non distended - Derm Derm: Warm and dry, No rash - Extremities Extremities: Normal ROM s pain, No edema, No calf tenderness / cord - Neuro Neuro: Alert and oriented X 3, 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, No motor deficit, No sensory deficit, Normal speech Eye Opening: Spontaneous Motor: Obeys Commands Verbal: Oriented GCS Score: 15 - Psych Psych: Normal mood, Normal affect Results - Vitals Vitals: Vital Signs - 24 hr 02/20/20 02/20/20 02/20/20 12:43 13:28 14:02 Temperature 36.5 C Heart Rate 48 L 58 L 58 L Respiratory 17 11 L 16 Rate Blood Pressure 110/64 136/65 H 128/56 L O2 Saturation 95 98 98 02/20/20 02/20/20 14:09 14:43 Temperature 36.6 C Heart Rate 53 L 81 Respiratory 17 16 Rate Blood Pressure 128/55 L 134/70 H O2 Saturation 99 98 Oxygen O2 Source Room air - EKG (time done) 1301 Rate: Rate (enter#) (46) Rhythm: Sinus bradycardia [place]: Normal Intervals: Normal [place] QRS: Normal, LVH Ischemia: Non specific changes - Labs Labs: Laboratory Tests 02/20/20 02/20/20 02/20/20 13:00 13:00 13:10 WBC 5.4 RBC 4.40 Hgb 14.1 Hct 44.0 MCV 100.0 H MCH 32.0 H MCHC 32.0 RDW 14.9 Plt Count 147 MPV 10.7 Neut # (Auto) 2.8 Lymph # (Auto) 1.7 [place] # (Auto) 0.6 Eos # (Auto) 0.2 Baso # (Auto) 0.0 Absolute Nucleated RBC 0.00 Nucleated RBC % 0.0 PT INR Sodium Potassium Chloride Carbon Dioxide Anion Gap BUN Creatinine Estimated GFR (MDRD) Glucose Calcium Total Bilirubin AST ALT Alkaline Phosphatase Troponin I High Sens Total Protein Albumin Globulin Albumin/Globulin Ratio Lipase Urine Color DARK YELLOW Urine Clarity CLEAR Urine pH 5.0 Ur Specific [place] >=1.030 H Urine Protein NEGATIVE Urine Glucose (UA) NEGATIVE Urine Ketones TRACE Urine Occult Blood NEGATIVE Urine Nitrite NEGATIVE Urine Bilirubin NEGATIVE Urine Urobilinogen 0.2 (NORMAL) Ur Leukocyte Esterase NEGATIVE Ur Microscopic Review NOT INDICATED Urine Culture Comments NOT INDICATED Last Dose Date Last Dose Time Digoxin Salicylates Urine Opiates Screen POSITIVE H Ur Oxycodone Screen POSITIVE H Urine Methadone Screen NEGATIVE Ur Propoxyphene Screen NEGATIVE Acetaminophen Ur Barbiturates Screen NEGATIVE Ur Tricyclics Screen NEGATIVE Ur Phencyclidine Scrn NEGATIVE Ur Amphetamine Screen NEGATIVE U Methamphetamines Scrn POSITIVE H U Benzodiazepines Scrn POSITIVE H Urine Cocaine Screen POSITIVE H U Cannabinoids Screen NEGATIVE Ethyl Alcohol 02/20/20 02/20/20 02/20/20 13:10 13:10 13:10 WBC RBC Hgb Hct MCV MCH MCHC RDW Plt Count MPV Neut # (Auto) Lymph # (Auto) [place] # (Auto) Eos # (Auto) Baso # (Auto) Absolute Nucleated RBC Nucleated RBC % PT 13.1 H INR 1.2 Sodium 140 Potassium 3.9 Chloride 101 Carbon Dioxide 31 Anion Gap 8.0 BUN 22 H Creatinine 1.0 Estimated GFR (MDRD) 54 L Glucose 91 Calcium 9.6 Total Bilirubin 0.7 AST 20 ALT 14 Alkaline Phosphatase 68 Troponin I High Sens 8.4 Total Protein 6.9 Albumin 3.9 Globulin 3.0 Albumin/Globulin Ratio 1.3 Lipase 32 Urine Color Urine Clarity Urine pH Ur Specific [place] Urine Protein Urine Glucose (UA) Urine Ketones Urine Occult Blood Urine Nitrite Urine Bilirubin Urine Urobilinogen Ur Leukocyte Esterase Ur Microscopic Review Urine Culture Comments Last Dose Date Last Dose Time Digoxin Salicylates Urine Opiates Screen Ur Oxycodone Screen Urine Methadone Screen Ur Propoxyphene Screen Acetaminophen Ur Barbiturates Screen Ur Tricyclics Screen Ur Phencyclidine Scrn Ur Amphetamine Screen U Methamphetamines Scrn U Benzodiazepines Scrn Urine Cocaine Screen U Cannabinoids Screen Ethyl Alcohol 02/20/20 02/20/20 13:10 13:10 WBC RBC Hgb Hct MCV MCH MCHC RDW Plt Count MPV Neut # (Auto) Lymph # (Auto) [place] # (Auto) Eos # (Auto) Baso # (Auto) Absolute Nucleated RBC Nucleated RBC % PT INR Sodium Potassium Chloride Carbon Dioxide Anion Gap BUN Creatinine Estimated GFR (MDRD) Glucose Calcium Total Bilirubin AST ALT Alkaline Phosphatase Troponin I High Sens Total Protein Albumin Globulin Albumin/Globulin Ratio Lipase Urine Color Urine Clarity Urine pH Ur Specific [place] Urine Protein Urine Glucose (UA) Urine Ketones Urine Occult Blood Urine Nitrite Urine Bilirubin Urine Urobilinogen Ur Leukocyte Esterase Ur Microscopic Review Urine Culture Comments Last Dose Date UNK Last Dose Time UNK Digoxin < 0.2 Salicylates < 6.0 Urine Opiates Screen Ur Oxycodone Screen Urine Methadone Screen Ur Propoxyphene Screen Acetaminophen 26 Ur Barbiturates Screen Ur Tricyclics Screen Ur Phencyclidine Scrn Ur Amphetamine Screen U Methamphetamines Scrn U Benzodiazepines Scrn Urine Cocaine Screen U Cannabinoids Screen Ethyl Alcohol < 5.0 - Rads (name of study) head CT Radiology: Prelim report reviewed, EMP read contemporaneously, See rad report (no acute abnormality. ) PD MEDICAL DECISION MAKING - ED course Complexity details: reviewed results, re-evaluated patient, considered differential, d/w patient, d/w family ED course: 79-year-old female with altered mental status earlier today, resolved prior to arrival in the emergency department. She feels more steady after IV fluids. Was dehydrated. Has multiple positive screens on her urine tox screen. Unclear if these are cross reactions versus true positives. She denies any drug use. Family denies any drug use. There are no signs of stroke. No UTI. As she is at her baseline, we will have her follow-up with her doctor for further care. Patient and family counseled regarding signs and symptoms for which I believe and urgent re-evaluation would be necessary. Patient with good understanding of and agreement to plan and is comfortable going home at this time This document was made in part using voice recognition software. While efforts are made to proofread this document, sound alike and grammatical errors may occur. Departure - Departure Disposition: 01 Home, Self Care Clinical Impression: Altered mental status Qualifiers: Altered mental status type: transient alteration of awareness Qualified Code(s): R40.4 - Transient alteration of awareness Condition: Good Instructions: ED Confusion Follow-Up: Joseph Lucas MD [Primary Care Provider] - Within 1 week Comments: The cause of your symptoms is unclear today. Follow-up with her doctor for further care. Please double check her medications to make sure they are her correct medications at home. Return if she worsens. It is likely of the positive findings on the drug screen are false positives and likely due to medication cross reactions. Discharge Date/Time: 02/20/20 15:17
[2020-02-20 13:33] LABS: MUDS CUTOFF CONCENTRATIONS CUTOFF CONC BELOW:
[2020-02-20 13:36] LABS: ALBUMIN 3.9 g/dL (3.2-5.5); ALBUMIN/GLOBULIN RATIO 1.3 (1.0-2.2); BILIRUBIN,TOTAL 0.7 mg/dL (0.2-1.0); CALCIUM 9.6 mg/dL (8.5-10.3); TOTAL PROTEIN 6.9 g/dL (6.7-8.2)
[2020-02-20 13:41] LABS: ACETAMINOPHEN 26 ug/mL (10-30); SALICYLATE < 6.0 mg/dL
[2020-02-20 13:48] LABS: AMPHETAMINE SCREEN,URINE NEGATIVE (NEGATIVE); BENZODIAZEPINES SCREEN, URINE POSITIVE (NEGATIVE); COCAINE SCREEN URINE POSITIVE (NEGATIVE); METHADONE SCREEN, URINE NEGATIVE (NEGATIVE); METHAMPHETAMINES SCREEN, URINE POSITIVE (NEGATIVE); OPIATE SCREEN, URINE POSITIVE (NEGATIVE); OXYCODONE SCREEN, URINE POSITIVE (NEGATIVE); PROPOXYPHENE SCREEN, URINE NEGATIVE (NEGATIVE); TRICYCLIC ANTIDEPRESSANT,URINE NEGATIVE (NEGATIVE)
[2020-02-20 13:48] LABS: DIGOXIN < 0.2 ng/mL
--- NOTE | 2020-02-20 14:09 | CT Report ---
PROCEDURE: HEAD WO INDICATIONS: altered mental status TECHNIQUE: Noncontrast 4.5 mm thick angled axial sections acquired from the foramen magnum to the vertex. For r adiation dose reduction, the following was used: automated exposure control, adjustment of mA and/or kV according to patient size. COMPARISON: 02/16/2019 FINDINGS: Image quality: Excellent. CSF spaces: Basal cisterns are patent. No extra-axial fluid collections. The ventricles are symmet liseth in size and shape. Brain: No intracranial bleeds or masses. Old infarction involving left inferior occipital lobe is ag ain seen with encephalomalacia and ex vacuo dilatation of adjacent occipital horn of left lateral huang tricle. There is cerebral volume loss for age, with resultant ventricular and sulcal prominence. The re are periventricular and deep white matter chronic small vessel ischemic changes. There is intracr anial internal carotid artery atherosclerosis. Skull and face: Calvarium and visualized facial bones appear intact, without suspicious lesions. Sinuses: Visualized sinuses and mastoids are clear. IMPRESSION: No CT evidence of acute intracranial pathology. No significant changes from previous study. Reviewed by: Kenton Daly MD on 02/20/2020 1:08 PM [facility]ORENC[facility] Approved by: Kenton Daly MD on 02/20/2020 1:08 PM AKDT Station ID: [id number]
[2020-02-20 14:44] VITALS: BP 134/70
== END 2020-02-20 15:17 | disposition home or self-care (01) ==
LOC: ED 12:34
DX: R40.4 Transient alteration of awareness (principal); E86.0 Dehydration; I10 Essential (primary) hypertension; I48.91 Unspecified atrial fibrillation; Z79.01 Long term (current) use of anticoagulants; Z66 Do not resuscitate; R41.82 Altered mental status, unspecified
CPT/HCPCS: 36415; 70450; 80053; 80162; 80306; 80307; 80320; 80329; 81001; 81003; 83690; 84484; 85025; 85610; 87086; 93005; 96360; 99285

== ENCOUNTER 2020-02-21 14:49 | Outpatient (CLI) | payer MEDICARE ==
[2020-02-21 15:00] LABS: MUDS CUTOFF CONCENTRATIONS CUTOFF CONC BELOW:
[2020-02-21 17:10] LABS: COCAINE SCREEN URINE NEGATIVE (NEGATIVE)
[2020-02-21 17:11] LABS: AMPHETAMINE SCREEN,URINE NEGATIVE (NEGATIVE); BENZODIAZEPINES SCREEN, URINE NEGATIVE (NEGATIVE); METHADONE SCREEN, URINE NEGATIVE (NEGATIVE); METHAMPHETAMINES SCREEN, URINE NEGATIVE (NEGATIVE); OPIATE SCREEN, URINE POSITIVE (NEGATIVE); OXYCODONE SCREEN, URINE POSITIVE (NEGATIVE); PROPOXYPHENE SCREEN, URINE NEGATIVE (NEGATIVE); TRICYCLIC ANTIDEPRESSANT,URINE NEGATIVE (NEGATIVE)
== END 2020-02-21 14:50 | disposition home or self-care (01) ==
LOC: LAB.S 14:49
PROVIDERS: ATTEND Internal Medicine
DX: R41.82 Altered mental status, unspecified (principal)
CPT/HCPCS: 80306

== ENCOUNTER 2020-09-26 10:31 | Outpatient (CLI) | payer MEDICARE | END 2020-09-26 10:32 | disposition critical access hospital (66) | LOC: EMS 10:31 | PROVIDERS: ATTEND Emergency Medicine | DX: R55 Syncope and collapse (principal); R11.2 Nausea with vomiting, unspecified | CPT/HCPCS: A0425; A0427 ==

== ENCOUNTER 2020-09-26 10:57 | Emergency (ER) | payer MEDICARE ==
[2020-09-26] MEDS ORDERED: SODIUM CHLORIDE 0.9% 1,000 ML IV STA ×2 (11:07→13:54)
--- NOTE | 2020-09-26 11:14 | ED Physician Documentation ---
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 Review of Systems Constitutional: denies: Fever Eyes: denies: Decreased vision Ears: denies: Ear pain Nose: denies: Congestion Throat: denies: Sore throat Cardiac: denies: Chest pain / pressure, Palpitations Respiratory: denies: Dyspnea, Cough GI: reports: Nausea. 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 : None HEENT: Chronic vision loss, Chronic hearing loss Psych: Depression, Anxiety Musculoskeletal: Other Derm: None - Past Surgical History Past Surgical History: Yes Ortho: Hip replacement HEENT: Tonsil/Adenoidectomy - Present Medications Home Medications: Ambulatory Orders Medication Instructions Recorded Confirmed Gabapentin [Neurontin] 300 mg PO BID 08/08/13 02/17/19 Lisinopril [Prinivil] 10 mg PO DAILY 08/08/13 02/17/19 Simvastatin [Zocor] 10 mg PO HS 08/08/13 02/17/19 Warfarin [Coumadin] 5 mg PO DAILY 08/08/13 02/18/19 Cefuroxime Axetil [Cefuroxime] 500 mg PO BID 04/15/18 02/17/19 Citalopram Hydrobromide 10 mg PO DAILY 04/15/18 02/17/19 [Citalopram HBr] Cholecalciferol (Vitamin D3) 4,000 unit PO DAILY 02/17/19 02/17/19 [Vitamin D3] Hydrocodone/Acetaminophen 1 tab PO Q4H PRN 02/17/19 02/17/19 [Hydrocodone-Acetamin 5-325 mg] Digoxin [Lanoxin] 125 mcg PO DAILY #10 tablet 02/20/19 Sotalol [Betapace] 80 mg PO BID 02/20/19 02/20/19 Spironolactone [Aldactone] 25 mg PO DAILY #10 tablet 02/20/19 [id number] CD [Cardizem Cd] 120 mg PO DAILY #10 capsule 02/20/19 Hydrocodone/Acetaminophen [[place] 1 each PO Q6H PRN #12 tablet 01/23/20 5-325 Tablet] - Allergies Allergies/Adverse Reactions: Allergies Allergy/AdvReac Type Severity Reaction Status Date / Time Penicillins Allergy Unknown Verified 09/26/20 11:21 lorazepam [From Ativan] AdvReac Anxiety Verified 09/26/20 11:21 - Social History Does the pt smoke?: No Smoking Status: Never smoker Does the pt drink ETOH?: No Does the pt have substance abuse?: No - Immunizations Immunizations are current?: Yes - POLST Patient has POLST: No POLST Status: DNR PD ED PE NORMAL - Vitals Vital signs reviewed: Yes (Hypertensive) - General General: No acute distress, Well developed/nourished - HEENT HEENT: Atraumatic, PERRL, EOMI - Neck Neck: Supple, no meningeal sign - Cardiac Cardiac: RRR, No murmur - Respiratory Respiratory: No respiratory distress, Clear bilaterally - Abdomen Abdomen: Normal bowel sounds, Soft, Non tender, Non distended, No organomegaly - Back Back: No CVA TTP, No spinal TTP - Derm Derm: Normal color, Warm and dry, No rash - Extremities Extremities: No deformity, No edema - 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, No motor deficit, No sensory deficit, Normal speech Eye Opening: Spontaneous Motor: Obeys Commands Verbal: Confused GCS Score: 14 - Psych Psych: Normal mood, Normal affect Results - Vitals Vitals: Vital Signs - 24 hr 09/26/20 09/26/20 09/26/20 11:00 12:00 13:54 Temperature 36.6 C Heart Rate 73 62 67 Respiratory 15 17 15 Rate Blood Pressure 151/75 H 138/69 H 169/86 H O2 Saturation 98 99 98 Oxygen O2 Source Room air - EKG (time done) 1114 Rate: Rate (enter#) (75) Rhythm: NSR, LAE Intervals: Prolonged QT (borderline), RBBB (incomplete) Ischemia: Normal ST segments Compare to prior EKG: Changed from prior EKG (SPT 02-20-2020 rate has increased) Computer interpretation: Agree with computer - Labs Labs: Laboratory Tests 09/26/20 09/26/20 09/26/20 11:37 11:37 11:37 WBC 4.2 L RBC 4.33 Hgb 13.5 Hct 42.9 MCV 99.1 H MCH 31.2 H MCHC 31.5 L RDW 14.2 Plt Count 154 MPV 10.2 Neut # (Auto) 2.8 Lymph # (Auto) 0.9 L [place] # (Auto) 0.4 Eos # (Auto) 0.1 Baso # (Auto) 0.0 Absolute Nucleated RBC 0.00 Nucleated RBC % 0.0 PT 13.8 H INR 1.2 APTT 31.6 Sodium 139 Potassium 4.2 Chloride 101 Carbon Dioxide 26 Anion Gap 12.0 BUN 16 Creatinine 0.8 Estimated GFR (MDRD) 69 L Glucose 94 Calcium 9.1 Total Bilirubin 0.7 AST 21 ALT 15 Alkaline Phosphatase 64 Total Protein 6.1 L Albumin 3.3 Globulin 2.8 Albumin/Globulin Ratio 1.2 Lipase 24 Urine Color Urine Clarity Urine pH Ur Specific [place] Urine Protein Urine Glucose (UA) Urine Ketones Urine Occult Blood Urine Nitrite Urine Bilirubin Urine Urobilinogen Ur Leukocyte Esterase Ur Microscopic Review Urine Culture Comments 09/26/20 13:40 WBC RBC Hgb Hct MCV MCH MCHC RDW Plt Count MPV Neut # (Auto) Lymph # (Auto) [place] # (Auto) Eos # (Auto) Baso # (Auto) Absolute Nucleated RBC Nucleated RBC % PT INR APTT Sodium Potassium Chloride Carbon Dioxide Anion Gap BUN Creatinine Estimated GFR (MDRD) Glucose Calcium Total Bilirubin AST ALT Alkaline Phosphatase Total Protein Albumin Globulin Albumin/Globulin Ratio Lipase Urine Color YELLOW Urine Clarity CLEAR Urine pH 6.0 Ur Specific [place] 1.020 Urine Protein NEGATIVE Urine Glucose (UA) NEGATIVE Urine Ketones TRACE Urine Occult Blood NEGATIVE Urine Nitrite NEGATIVE Urine Bilirubin NEGATIVE Urine Urobilinogen 0.2 (NORMAL) Ur Leukocyte Esterase NEGATIVE Ur Microscopic Review NOT INDICATED Urine Culture Comments NOT INDICATED Procedures - IVC sono (time) 1120 Bedside IVC sono: IVC measures (cm) (1.09), IVC collapsed c insp (cm) (complete), Dehydration (est 1-2 liter deficit) PD MEDICAL DECISION MAKING - ED course Complexity details: considered differential, d/w patient ED course: 80-year-old female the history of intermittent atrial fibrillation had another episode today of vasovagal near syncope. She became pale and nauseous and after receiving fluid in the ambulance felt improved she was found her to be dehydrated and in sinus rhythm she had a prolonged QT interval and was administered magnesium as well. Departure - Departure Disposition: 01 Home, Self Care Clinical Impression: Dehydration, Paroxysmal a-fib, Vasovagal near-syncope Condition: Stable Instructions: ED Dehydration, ED Near Syncope Vasovagal Follow-Up: Joseph Lucas MD [Primary Care Provider] - Discharge Date/Time: 09/26/20 14:15
[2020-09-26] MEDS ORDERED: MAGNESIUM SULFATE 2 GRAM 2 GM/50 ML BAG IV ONE (11:18)
[2020-09-26 11:43] LABS: BASOPHILS % (AUTO) 0.7 %; EOSINOPHILS # (AUTO) 0.1 10^3/uL (0.0-0.7); EOSINOPHILS % (AUTO) 2.9 %; HCT - HEMATOCRIT 42.9 % (37.0-47.0); HGB - HEMOGLOBIN 13.5 g/dL (12.0-16.0); LYMPHOCYTES # (AUTO) 0.9 10^3/uL (1.5-3.5); LYMPHOCYTES % (AUTO) 20.5 %; MEAN CORPUSCULAR HEMOGLOBIN 31.2 pg (27.0-31.0); MEAN CORPUSCULAR HGB CONC 31.5 g/dL (32.0-36.0); MEAN CORPUSCULAR VOLUME 99.1 fL (81.0-99.0); MEAN PLATELET VOLUME 10.2 fL (7.9-10.8); MONOCYTES # (AUTO) 0.4 10^3/uL (0.0-1.0); MONOCYTES % (AUTO) 8.4 %; NEUTROPHILS # (AUTO) 2.8 10^3/uL (1.5-6.6); NEUTROPHILS % (AUTO) 67.5 %; PLT - PLATELET COUNT 154 10^3/uL (130-450); RED BLOOD COUNT 4.33 10^6/uL (4.20-5.40); RED CELL DISTRIBUTION WIDTH 14.2 % (12.0-15.0); WHITE BLOOD COUNT 4.2 x10^3/uL (4.8-10.8)
[2020-09-26 11:49] LABS: INR 1.2 (0.8-1.2); PT - PROTHROMBIN TIME 13.8 secs (9.9-12.6)
[2020-09-26 11:56] LABS: PARTIAL THROMBOPLASTIN TIME 31.6 secs (24.9-33.3)
[2020-09-26 12:00] LABS: ALBUMIN 3.3 g/dL (3.2-5.5); ALBUMIN/GLOBULIN RATIO 1.2 (1.0-2.2); BILIRUBIN,TOTAL 0.7 mg/dL (0.2-1.0); CALCIUM 9.1 mg/dL (8.5-10.3); CREATININE 0.8 mg/dL (0.4-1.0); POTASSIUM 4.2 mmol/L (3.5-5.0); TOTAL PROTEIN 6.1 g/dL (6.7-8.2)
[2020-09-26 13:45] LABS: BILIRUBIN,URINE NEGATIVE (NEGATIVE); CLARITY,URINE CLEAR (CLEAR); GLUCOSE, URINE (UA) NEGATIVE (NEGATIVE); KETONES,URINE (UA) TRACE mg/dL (NEGATIVE); LEUKOCYTE ESTERASE, URINE NEGATIVE (NEGATIVE); NITRITE,URINE NEGATIVE (NEGATIVE); OCCULT BLOOD,URINE NEGATIVE (NEGATIVE); PROTEIN,URINE NEGATIVE (NEGATIVE); UROBILINOGEN,URINE 0.2 (NORMAL) E.U./dL (NORMAL)
[2020-09-26 13:54] VITALS: BP 169/86
== END 2020-09-26 14:15 | disposition home or self-care (01) ==
LOC: EDUNIT# → ED 10:57
DX: E86.0 Dehydration (principal); R55 Syncope and collapse; R11.2 Nausea with vomiting, unspecified; I48.0 Paroxysmal atrial fibrillation; Z79.01 Long term (current) use of anticoagulants; I45.10 Unspecified right bundle-branch block; I45.81 Long QT syndrome; I10 Essential (primary) hypertension; F03.90 Unspecified dementia, unspecified severity, without behavioral disturbance, psychotic disturbance, mood disturbance, and anxiety; Z66 Do not resuscitate
CPT/HCPCS: 36415; 80053; 81001; 81003; 83690; 85025; 85610; 85730; 87086; 93005; 96361; 96365; 99284

== ENCOUNTER 2020-12-22 08:00 | Outpatient (CLI) | payer MEDICARE ==
--- NOTE | 2020-12-22 14:13 | XRAY Report ---
PROCEDURE: Knee 3 View RT INDICATIONS: RIGHT KNEE SPRAIN TECHNIQUE: 4 views of the right knee(s) were acquired. COMPARISON: None. FINDINGS: Bones: No acute fractures or dislocations. No suspicious bony lesions. Moderate-severe tricompartm ental osteoarthritic changes of the right knee most pronounced in the medial femorotibial and patello femoral compartments. Marginal osteophyte formation. Soft tissues: No substantial joint effusion. No suspicious soft tissue calcifications. Atheroscler otic calcifications are noted posterior to the right knee. IMPRESSION: Right knee without acute fracture or dislocation. Moderate-severe tricompartmental osteoarthrosis of the right knee most pronounced in the medial femor otibial and patellofemoral compartments. Reviewed by: Moise Mathur MD on 12/22/2020 2:11 PM PDT Approved by: Moise Mathur MD on 12/22/2020 2:11 PM PDT Station ID: [id number]
== END 2020-12-22 23:59 | disposition home or self-care (01) ==
LOC: DI.S 08:00
PROVIDERS: ATTEND Physician Assistant Medical
DX: M17.11 Unilateral primary osteoarthritis, right knee (principal)

== ENCOUNTER 2021-11-08 10:11 | Outpatient (CLI) | payer MEDICARE ==
--- NOTE | 2021-11-08 12:41 | DEXA Report ---
PROCEDURE: Dexa Spine and/or Hip INDICATIONS: MENOPAUSAL TECHNIQUE: Dual energy x-ray absorptiometry (DXA) was performed on a SoloPower System. Regions measur ed are the AP Spine, femoral neck, and if needed forearm. The patient is status post bilateral hip replacement. COMPARISON: None. FINDINGS: Lumbar Spine: Bone Mineral Density 1.105 g/cm/cm,T score -0.6, normal Left forearm: Bone Mineral Density 0.470 g/cm/cm, T score -4.6, osteoporosis (T score greater or equal to -1.0: NORMAL) (T score from -1.1 to -2.4: OSTEOPENIA) (T score less than or equal to -2.5 to: OSTEOPOROSIS) Impression: Bone mineral density as detailed above. Patients with diagnosis of osteoporosis or osteopenia should have regular bone mineral density assess ment. For those eligible for Medicare, routine testing is allowed once every 2 years. Testing frequ ency can be increased for patients who have rapidly progressing disease or for those who are receivin g medical therapy to restore bone mass. Reviewed by: Ryan Valle MD on 11/08/2021 12:40 PM PDT Approved by: Ryan Valle MD on 11/08/2021 12:40 PM PDT Station ID: [id number]
== END 2021-11-08 10:12 | disposition home or self-care (01) ==
LOC: DI 10:11
PROVIDERS: ATTEND Internal Medicine
DX: Z78.0 Asymptomatic menopausal state (principal); M81.0 Age-related osteoporosis without current pathological fracture; Z96.643 Presence of artificial hip joint, bilateral

== ENCOUNTER 2022-02-04 13:47 | Outpatient (CLI) | payer MEDICARE | END 2022-02-04 13:48 | disposition critical access hospital (66) | LOC: EMS 13:47 | DX: I48.91 Unspecified atrial fibrillation (principal); E86.0 Dehydration | CPT/HCPCS: A0425; A0427 ==

== ENCOUNTER 2022-02-04 14:16 | Emergency (ER) | payer MEDICARE ==
--- NOTE | 2022-02-04 14:19 | ED Physician Documentation ---
PD HPI CHEST PAIN - Stated complaint Stated Complaint: GEN WEAKNESS - History obtained from History obtained from: Patient - History of Present Illness Timing - onset: How many days ago (3) Timing - onset during: Rest, Light activity Timing - duration: Days (3) Timing - details: Gradual onset (The patient does have poor short-term memory due to dementia but staff that [facility] states she had complained of malaise and not feeling well for the last 3 days. Vital signs checked today showed a heart rate approximately 140-150.), Still present, Waxing and waning Quality: No: Pressure, Tightness Location: Substernal (she does describe feeling of some fluttering in chest. Some dyspnea.) Radiation: No: Neck, Back, Abdominal Improved by: Rest Worsened by: Other (activity) Associated symptoms: Shortness of air, Palpitations. No: Nausea, Vomiting, Feeling faint / dizzy Similar symptoms before: Other (She does have poor short-term memory but states she is recalls a history of atrial fibrillation.) Recently seen: Not recently seen Review of Systems Unable to obtain: Dementia, Other (info from [facility] notes/staff.) Constitutional: denies: Fever Cardiac: denies: Pedal edema Respiratory: reports: Dyspnea. denies: Cough GI: denies: Vomiting, Diarrhea Neurologic: reports: Generalized weakness. 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 HEENT: Chronic vision loss, Chronic hearing loss Psych: Depression, Anxiety Musculoskeletal: Other Derm: None - Past Surgical History Past Surgical History: Yes Ortho: Hip replacement HEENT: Tonsil/Adenoidectomy - Present Medications Home Medications: Ambulatory Orders Medication Instructions Recorded Confirmed Gabapentin [Neurontin] 300 mg PO BID 08/08/13 02/17/19 Simvastatin [Zocor] 10 mg PO HS 08/08/13 02/17/19 Warfarin [Coumadin] 5 mg PO DAILY 08/08/13 02/18/19 lisinopriL [Prinivil] 10 mg PO DAILY 08/08/13 02/17/19 Cefuroxime Axetil [Cefuroxime] 500 mg PO BID 04/15/18 02/17/19 Citalopram Hydrobromide 10 mg PO DAILY 04/15/18 02/17/19 [Citalopram HBr] Cholecalciferol (Vitamin D3) 4,000 unit PO DAILY 02/17/19 02/17/19 [Vitamin D3] Hydrocodone/Acetaminophen 1 tab PO Q4H PRN 02/17/19 02/17/19 [Hydrocodone-Acetamin 5-325 mg] Digoxin [Lanoxin] 125 mcg PO DAILY #10 tablet 02/20/19 Sotalol [Betapace] 80 mg PO BID 02/20/19 02/20/19 Spironolactone [Aldactone] 25 mg PO DAILY #10 tablet 02/20/19 diltiaZEM CD [Cardizem Cd] 120 mg PO DAILY #10 capsule 02/20/19 Hydrocodone/Acetaminophen [[place] 1 each PO Q6H PRN #12 tablet 01/23/20 5-325 Tablet] diltiaZEM CD [Cardizem Cd] 180 mg PO DAILY 15 Days #15 cap 02/04/22 - Allergies Allergies/Adverse Reactions: Allergies Allergy/AdvReac Type Severity Reaction Status Date / Time Penicillins Allergy Unknown Verified 02/04/22 14:22 lorazepam [From Ativan] AdvReac Anxiety Verified 02/04/22 14:22 - Social History Does the pt smoke?: No Smoking Status: Never smoker Does the pt drink ETOH?: No Does the pt have substance abuse?: No - Immunizations Immunizations are current?: Yes - POLST Patient has POLST: No POLST Status: DNR PD ED PE NORMAL - Vitals Vital signs reviewed: Yes - General General: Alert and oriented X 3, No acute distress, Well developed/nourished - Neck Neck: Supple, no meningeal sign, No adenopathy, No JVD - Cardiac Cardiac: No murmur. No: RRR (irregular and fast rate approx 140s. c/w atrial fib. ) - Respiratory Respiratory: Other (Faint crackles at bases. No wheezing. No coarse sounds.) - Abdomen Abdomen: Soft, Non tender - Derm Derm: Normal color - Extremities Extremities: Normal ROM s pain, No edema, No calf tenderness / cord - Neuro Neuro: Alert and oriented X 3, No motor deficit, Normal speech Eye Opening: Spontaneous Motor: Obeys Commands Verbal: Confused GCS Score: 14 - Psych Psych: Normal mood Results - Vitals Vitals: Vital Signs - 24 hr 02/04/22 02/04/22 02/04/22 14:22 14:26 14:56 Temperature 36.9 C 36.9 C Heart Rate 83 83 88 Respiratory 18 18 16 Rate Blood Pressure 150/100 H 150/100 H 121/83 H O2 Saturation 99 99 99 02/04/22 02/04/22 02/04/22 15:26 15:30 15:33 Temperature Heart Rate 90 100 102 H Respiratory 17 16 25 H Rate Blood Pressure 121/83 H 138/87 H 138/87 H O2 Saturation 97 99 97 02/04/22 02/04/22 02/04/22 16:22 16:30 16:42 Temperature Heart Rate 103 H 100 101 H Respiratory 20 14 18 Rate Blood Pressure 136/98 H 150/100 H 147/88 H O2 Saturation 98 98 98 02/04/22 02/04/22 16:48 16:53 Temperature Heart Rate 87 84 Respiratory 18 17 Rate Blood Pressure 131/68 H 136/77 H O2 Saturation 98 98 Oxygen O2 Source Room air - EKG (time done) 14:20 Rate: Rate (enter#) (85) Rhythm: Atrial flutter Ischemia: Normal ST segments. No: ST elevation c/w ischemia, ST depression - Labs Labs: Laboratory Tests 02/04/22 02/04/22 02/04/22 14:46 14:46 14:46 WBC 4.4 L RBC 4.77 Hgb 14.2 Hct 44.0 MCV 92.2 MCH 29.8 MCHC 32.3 RDW 15.0 Plt Count 165 MPV 10.1 Neut # (Auto) 2.5 Lymph # (Auto) 1.4 L [place] # (Auto) 0.4 Eos # (Auto) 0.1 Baso # (Auto) 0.0 Absolute Nucleated RBC 0.00 Nucleated RBC % 0.0 Sodium 140 Potassium 4.0 Chloride 104 Carbon Dioxide 23 Anion Gap 13.0 BUN 11 Creatinine 0.8 Estimated GFR (MDRD) 69 L Glucose 91 Calcium 9.0 Magnesium 1.8 Total Bilirubin 1.0 AST 17 ALT 11 Alkaline Phosphatase 61 B-Natriuretic Peptide 587 H Total Protein 6.3 L Albumin 3.2 Globulin 3.1 Albumin/Globulin Ratio 1.0 Lipase 28 PD MEDICAL DECISION MAKING - ED course Complexity details: reviewed results (Atrial fib flutter with rate control and good blood pressure and alertness. She is on diltiazem 120 mg and can increase it to 180. She is also on sotalol. She is not on anticoagulant but seems potential for fall risk and so aspirin may be appropriate.), re-evaluated patient, considered differential (Patient given diltiazem in route with a heart rate slowing. Here in the ER it remains 80-110 and she feels fine. No notable heart failure from this. History of atrial fibrillation and hard to tell chronic versus paroxysmal. Likely has been several days. Will go for rate control.), d/w patient Departure - Departure Disposition: 01 Home, Self Care Clinical Impression: Atrial fibrillation with rapid ventricular response, Weakness Condition: Stable Record reviewed to determine appropriate education?: Yes Instructions: ED Afib Follow-Up: Joseph Lucas MD [Primary Care Provider] - Prescriptions: diltiaZEM CD [Cardizem Cd] 180 mg PO DAILY 15 Days #15 cap Comments: Your heart rate was a fast rate atrial fibrillation. You seem to be feeling okay with a heart rate controlled around 100 though your rhythm is still atrial fibrillation. This sounds like its been recurrent or chronic for you. At this point the emphasis is on rate control primarily and commonly will switch back to sinus rhythm if its going to over the next couple of days. I would increase your diltiazem from the current 120 mg to now 180 mg daily. Continue your other usual medicines. I sent your prescription to [facility] in [place]. Have your blood pressure and heart rate checked twice daily for the next several days. Return if fast heart rate or if not feeling well despite the increased medicine above. Target heart rate would be under 110.
[2022-02-04 14:51] LABS: BASOPHILS % (AUTO) 0.5 %; EOSINOPHILS # (AUTO) 0.1 10^3/uL (0.0-0.7); EOSINOPHILS % (AUTO) 1.6 %; HGB - HEMOGLOBIN 14.2 g/dL (12.0-16.0); LYMPHOCYTES # (AUTO) 1.4 10^3/uL (1.5-3.5); LYMPHOCYTES % (AUTO) 31.4 %; MEAN CORPUSCULAR HEMOGLOBIN 29.8 pg (27.0-31.0); MEAN CORPUSCULAR HGB CONC 32.3 g/dL (32.0-36.0); MEAN CORPUSCULAR VOLUME 92.2 fL (81.0-99.0); MEAN PLATELET VOLUME 10.1 fL (7.9-10.8); MONOCYTES # (AUTO) 0.4 10^3/uL (0.0-1.0); MONOCYTES % (AUTO) 8.9 %; NEUTROPHILS # (AUTO) 2.5 10^3/uL (1.5-6.6); NEUTROPHILS % (AUTO) 57.6 %; PLT - PLATELET COUNT 165 10^3/uL (130-450); RED BLOOD COUNT 4.77 10^6/uL (4.20-5.40); WHITE BLOOD COUNT 4.4 x10^3/uL (4.8-10.8)
[2022-02-04 15:05] LABS: ALBUMIN 3.2 g/dL (3.2-5.5); CREATININE 0.8 mg/dL (0.4-1.0); MAGNESIUM 1.8 mg/dL (1.7-2.8); TOTAL PROTEIN 6.3 g/dL (6.7-8.2)
--- NOTE | 2022-02-04 15:16 | XRAY Report ---
PROCEDURE: Chest 1 View X-Ray INDICATIONS: chest pain TECHNIQUE: One view of the chest was acquired. COMPARISON: 02/20/2019 Correlation is made with prior right humerus plain films, 01/23/2020 FINDINGS: Surgical changes and devices: None. Lungs and pleura: No pleural effusions or pneumothorax. Minimal to mild generalized interstitial pro minence can be seen. Mediastinum: The aorta is prominent and tortuous. The cardiac contours are within normal limits. Bones and chest wall: No suspicious bony lesions. There is a right humeral neck fracture. Age-approp riate degenerative changes are seen. Overlying soft tissues appear unremarkable. IMPRESSION: There is minimal to mild generalized interstitial prominence. Please consider pulmonary edema. Remote right humeral neck fracture. Reviewed by: Eamon Hamilton MD on 02/04/2022 2:14 PM [facility]FLORENCIA Approved by: Eamon Hamilton MD on 02/04/2022 2:14 PM ORAL Station ID: [id number]
[2022-02-04] MEDS ORDERED: diltiaZEM INJ 5 MG/ML VIAL IVP STA ×2 (15:34→16:29)
[2022-02-04] MEDS ORDERED: diltiaZEM CD 120 MG CAPSULE PO STA (16:29)
[2022-02-04 17:23] VITALS: BP 135/96
== END 2022-02-04 17:35 | disposition home or self-care (01) ==
LOC: EDUNIT# → ED 14:16
DX: R53.1 Weakness (principal); I48.20 Chronic atrial fibrillation, unspecified; Z79.01 Long term (current) use of anticoagulants; F03.90 Unspecified dementia, unspecified severity, without behavioral disturbance, psychotic disturbance, mood disturbance, and anxiety; I10 Essential (primary) hypertension; I48.91 Unspecified atrial fibrillation
CPT/HCPCS: 36415; 71045; 80053; 83690; 83735; 83880; 85025; 93005; 96374; 96376; 99284; A9270

== ENCOUNTER 2022-02-04 17:39 | Outpatient (CLI) | payer MEDICARE | END 2022-02-04 17:40 | disposition home or self-care (01) | LOC: EMS 17:39 | PROVIDERS: ATTEND Emergency Medicine | DX: R41.0 Disorientation, unspecified (principal); I48.91 Unspecified atrial fibrillation | CPT/HCPCS: A0425; A0428 ==

== ENCOUNTER → 2022-04-05 | Outpatient (CLI) | payer MEDICARE | END | disposition left against medical advice (07) | LOC: EMS 08:45 | DX: R42 Dizziness and giddiness (principal) ==

== ENCOUNTER 2023-01-26 18:16 | Outpatient (CLI) | payer MEDICARE | END 2023-01-26 23:59 | disposition left against medical advice (07) | LOC: EMS 18:16 | DX: S01.21XA Laceration without foreign body of nose, initial encounter (principal); W19.XXXA Unspecified fall, initial encounter; Y92.099 Unspecified place in other non-institutional residence as the place of occurrence of the external cause ==

== ENCOUNTER 2023-01-29 12:03 | Emergency (ER) | payer MEDICARE ==
[2023-01-29] MEDS ORDERED: SODIUM CHLORIDE 0.9% 1,000 ML IV STA (12:30)
--- NOTE | 2023-01-29 12:42 | ED Physician Documentation ---
History of Present Illness - Stated complaint Stated Complaint: GLF - Chief complaint Chief Complaint: Trauma Hd/Nk - History obtained from History obtained from: Patient, Family - History of Present Illness Timing: How many days ago (4) Pain level max: 0 Pain level now: 0 - Additonal information Additional information: 82-year-old female presents to the emergency department with her family. She reportedly fell 4 days ago, hit the front of her face on the ground. Initially fell to her knees and then fell forward and struck her face. Does take Eliquis at home. No loss of consciousness. Family states that she seemed slightly more confused than usual today. No fevers. No chills. No changes to her me dications. No headache. No back pain. She also states that her left knee feels sore and noticed bruising to the left knee. 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 HEENT: Chronic vision loss, Chronic hearing loss Psych: Depression, Anxiety Musculoskeletal: Other Derm: None - Past Surgical History Past Surgical History: Yes Ortho: Hip replacement HEENT: Tonsil/Adenoidectomy - Present Medications Home Medications: Ambulatory Orders Medication Instructions Recorded Confirmed Gabapentin [Neurontin] 300 mg PO BID 08/08/13 01/29/23 Cefuroxime Axetil [Cefuroxime] 500 mg PO BID 04/15/18 01/29/23 Citalopram Hydrobromide 10 mg PO DAILY 04/15/18 01/29/23 [Citalopram HBr] Cholecalciferol (Vitamin D3) 4,000 unit PO DAILY 02/17/19 01/29/23 [Vitamin D3] Sotalol [Betapace] 80 mg PO BID 02/20/19 01/29/23 diltiaZEM CD [Cardizem Cd] 180 mg PO DAILY 15 Days #15 cap 02/04/22 01/29/23 Alendronate [Fosamax] 70 mg PO Q7D 01/29/23 01/29/23 Calcium Carbonate [Calcium] 600 mg PO BID 01/29/23 01/29/23 Dabigatran [Pradaxa] 150 mg PO BID 01/29/23 01/29/23 - Allergies Allergies/Adverse Reactions: Allergies Allergy/AdvReac Type Severity Reaction Status Date / Time Penicillins Allergy Unknown Verified 01/29/23 12:15 lorazepam [From Ativan] AdvReac Anxiety Verified 01/29/23 12:15 - Social History Does the pt smoke?: No Smoking Status: Never smoker Does the pt drink ETOH?: No Does the pt have substance abuse?: No - Immunizations Immunizations are current?: Yes - POLST Patient has POLST: No POLST Status: DNR PD ED PE NORMAL - Vitals Vital signs reviewed: Yes - General General: Alert and oriented X 3, No acute distress - HEENT HEENT: PERRL, Moist mucous membranes, Other (There is healing bruising to the right and left periorbital areas. No facial bone tenderness. No deformity. Normal intraoral exam. No scalp hematomas. No lacerations.) - Neck Neck: Supple, no meningeal sign, No bony TTP - Cardiac Cardiac: RRR, No murmur - Respiratory Respiratory: Clear bilaterally - Abdomen Abdomen: Normal bowel sounds, Soft, Non tender, Non distended - Derm Derm: Warm and dry - Extremities Extremities: No deformity, Other (Left knee - Mild swelling and bruising. Mild tenderness over the patella. No crepitus.) - Neuro Neuro: Alert and oriented X 3 - Psych Psych: Normal mood, Normal affect Results - Vitals Vitals: Vital Signs - 24 hr 01/29/23 01/29/23 01/29/23 12:15 13:15 13:49 Temperature 36.5 C Heart Rate 88 58 L 59 L Respiratory 16 15 15 Rate Blood Pressure 89/63 L 108/60 113/78 O2 Saturation 96 100 95 Oxygen O2 Source Room air - Labs Labs: Laboratory Tests 01/29/23 01/29/23 01/29/23 12:32 12:32 12:32 WBC 6.0 RBC 4.76 Hgb 14.0 Hct 45.2 MCV 95.0 MCH 29.4 MCHC 31.0 L RDW 15.9 H Plt Count 221 MPV 10.4 Neut # (Auto) 3.4 Lymph # (Auto) 1.7 [place] # (Auto) 0.6 Eos # (Auto) 0.3 Baso # (Auto) 0.0 Absolute Nucleated RBC 0.00 Nucleated RBC % 0.0 PT 13.5 H INR 1.2 APTT 42.0 H Sodium 138 Potassium 4.5 Chloride 103 Carbon Dioxide 30 Anion Gap 5.0 L BUN 15 Creatinine 0.8 Estimated GFR (MDRD) 69 L Glucose 100 Calcium 9.5 Total Bilirubin 0.7 AST 15 ALT 8 L Alkaline Phosphatase 68 Total Protein 7.0 Albumin 3.6 Globulin 3.4 Albumin/Globulin Ratio 1.1 - Rads (name of study) head Ct Relevant Findings:: Final report received, See rad report maxillofacial CT Relevant Findings:: Final report received, See rad report c spine CT Relevant Findings:: Final report received, See rad report L knee xray Relevant Findings:: Final report received, See rad report PD Medical Decision Making - ED course Complexity details: reviewed results, re-evaluated patient, considered differential, d/w patient, d/w family ED course: No acute findings on head CT or cervical spine CT. Maxillofacial CT does show a nasal bone fracture. She also has a possible lateral patellar fracture, vertically oriented. She has mild tenderness but has been walking on the knee for the past 4 days. We did discuss placing in a knee immobilizer, patient declines this as she feels it would make her too unstable and more likely to fall. I think this is reasonable in her case. We will continue supportive care and have her follow-up with her doctor. Patient was given IV fluids and blood pressure improved as well. Patient is not symptomatic with the low blood pressure upon arrival. No lightheadedness or dizziness. No syncope or near syncope. Patient counseled regarding signs and symptoms for which I believe and urgent re-evaluation would be necessary. Patient with good understanding of and agreement to plan and is comfortable going home at this time This document was made in part using voice recognition software. While efforts are made to proofread this document, sound alike and grammatical errors may occur. Departure - Departure Disposition: 01 Home, Self Care Clinical Impression: Nasal bone fracture Qualifiers: Encounter type: initial encounter Fracture type: closed Qualified Code(s): S02.2XXA - Fracture of nasal bones, initial encounter for closed fracture Facial contusion Qualifiers: Encounter type: initial encounter Qualified Code(s): S00.83XA - Contusion of other part of head, initial encounter Patellar fracture Qualifiers: Encounter type: initial encounter Fracture type: closed Fracture morphology: longitudinal Fracture alignment: nondisplaced Laterality: left Qualified Code(s): S82.025A - Nondisplaced longitudinal fracture of left patella, initial encounter for closed fracture Condition: Good Instructions: ED Fx Patella Follow-Up: your,doctor in 1 week [Other] Comments: Your head CT, cervical spine CT do not show any acute abnormalities, the CT of your facial bones does show a nasal bone fracture. You also appear to have a small crack in your patella, this should heal on its own. Please follow-up with your doctor for further care. Please return if you worsen. Make sure you are drinking plenty of water at home. Forms: PCP List Discharge Date/Time: 01/29/23 13:50
[2023-01-29 12:55] LABS: BASOPHILS % (AUTO) 0.7 %; EOSINOPHILS # (AUTO) 0.3 10^3/uL (0.0-0.7); EOSINOPHILS % (AUTO) 4.2 %; HCT - HEMATOCRIT 45.2 % (37.0-47.0); LYMPHOCYTES # (AUTO) 1.7 10^3/uL (1.5-3.5); MEAN CORPUSCULAR HEMOGLOBIN 29.4 pg (27.0-31.0); MEAN PLATELET VOLUME 10.4 fL (7.9-10.8); MONOCYTES # (AUTO) 0.6 10^3/uL (0.0-1.0); MONOCYTES % (AUTO) 10.6 %; NEUTROPHILS # (AUTO) 3.4 10^3/uL (1.5-6.6); NEUTROPHILS % (AUTO) 56.2 %; PLT - PLATELET COUNT 221 10^3/uL (130-450); RED BLOOD COUNT 4.76 10^6/uL (4.20-5.40); RED CELL DISTRIBUTION WIDTH 15.9 % (12.0-15.0)
[2023-01-29 13:00] LABS: INR 1.2 (0.8-1.2); PT - PROTHROMBIN TIME 13.5 secs (9.9-12.6)
[2023-01-29 13:16] LABS: ALBUMIN 3.6 g/dL (3.2-5.5); ALBUMIN/GLOBULIN RATIO 1.1 (1.0-2.2); BILIRUBIN,TOTAL 0.7 mg/dL (0.2-1.0); CALCIUM 9.5 mg/dL (8.5-10.3); CREATININE 0.8 mg/dL (0.6-1.3); POTASSIUM 4.5 mmol/L (3.5-4.5)
--- NOTE | 2023-01-29 13:32 | XRAY Report ---
PROCEDURE: Knee 4 View INDICATIONS: fall, pain TECHNIQUE: 4 views of the left knee(s) were acquired. COMPARISON: None. FINDINGS: Bones: Radial lucency along lateral portion of patella is noted. No other fracture or dislocation. 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 No suspicious bony lesions. Soft tissues: Moderate suprapatellar joint effusion. No suspicious soft tissue calcifications or mass es. IMPRESSION: 1. Finding is concerning for nondisplaced lateral patella fracture, suggest clinical correlation. 2. Moderate joint effusion. Reviewed by: Kenton Daly MD on 01/29/2023 1:03 PM PDT Approved by: Kenton Daly MD on 01/29/2023 1:03 PM PDT Station ID: [id number]
--- NOTE | 2023-01-29 13:32 | CT Report ---
PROCEDURE: HEAD WO INDICATIONS: fall, pain TECHNIQUE: Noncontrast 4.5 mm thick angled axial sections acquired from the foramen magnum to the vertex. For r adiation dose reduction, the following was used: automated exposure control, adjustment of mA and/or kV according to patient size. COMPARISON: 02/20/2020 FINDINGS: Image quality: Excellent. CSF spaces: Basal cisterns are patent. No extra-axial fluid collections. The ventricles are symmet liseth in size and shape. Brain: No intracranial bleeds or masses. Again noted is old infarction involving left occipital lobe with encephalomalacia and ex vacuo dilatation of the adjacent occipital horn of left lateral ventric le. There is cerebral volume loss for age, with resultant ventricular and sulcal prominence. There are periventricular and deep white matter chronic small vessel ischemic changes. There is intracrani al internal carotid artery atherosclerosis. Skull and face: Calvarium and visualized facial bones appear intact, without suspicious lesions. Sinuses: Visualized sinuses and mastoids are clear. IMPRESSION: 1. No CT evidence of acute intracranial abnormalities. No significant changes from previous study. 2. No acute skull fracture. Reviewed by: Kenton Daly MD on 01/29/2023 12:57 PM PDT Approved by: Ketnon Daly MD on 01/29/2023 12:57 PM PDT Station ID: [id number]
--- NOTE | 2023-01-29 13:32 | CT Report ---
PROCEDURE: MAXILLOFACIAL WO INDICATIONS: fall, pain TECHNIQUE: Noncontrast 1.5 mm thick axial images acquired from the mandible through the frontal sinuses, with co harika and sagittal reformatting. For radiation dose reduction, the following was used: automated ex posure control, adjustment of mA and/or kV according to patient size. COMPARISON: None. FINDINGS: Image quality: Excellent. Bones and teeth: Orbital blanca are intact. Sinus blanca show no fracture or deformity. Subtle minima lly displaced fracture involving left anterior nasal bone is seen. The nasal septum is intact. Visual ized portions of the mandible demonstrate no fractures or subluxation. Zygomatic arches are intact. Pterygoid plates are intact. Visualized portions of the skull base and auditory canals are intact. Sinuses: Paranasal sinuses are aerated, without fluid levels, mucosal thickening, or mucoceles. [place] air cells are aerated. Soft tissues: Mild soft tissue swelling over left anterior nasal bone fracture site is seen. No enlar ged lymph nodes. No soft tissue lacerations or debris. Vascular: Visualized vascular structures appear normal in the absence of contrast. Bony vascular fo ramina and canals are intact. IMPRESSION: 1. Minimally displaced left anterior nasal bone fracture. Mild overlying soft tissue swelling. 2. No other facial bone fracture is seen. Bilateral orbital blanca are intact. 3. Bilateral paranasal sinuses and mastoids are well aerated. Reviewed by: Kenton Daly MD on 01/29/2023 1:02 PM PDT Approved by: Kenton Daly MD on 01/29/2023 1:02 PM PDT Station ID: [id number]
--- NOTE | 2023-01-29 13:32 | CT Report ---
PROCEDURE: CERVICAL SPINE WO INDICATIONS: fall, pain TECHNIQUE: Noncontrast 3 mm thick sections acquired from the skull base to the T4 level. Sagittal and coronal r eformats were then constructed. For radiation dose reduction, the following was used: automated exp osure control, adjustment of mA and/or kV according to patient size. COMPARISON: None. FINDINGS: Image quality: Excellent. Bones: No fractures or dislocations. Visualized superior ribs are intact. The multilevel degenerat dmitri changes. Degenerative disc disease at all levels between C3-4 and C7-T1. Soft tissues: Prevertebral soft tissues are normal in thickness. No paravertebral hematomas. No ap ical pneumothoraces. IMPRESSION: 1. Multilevel degenerative changes. 2. No acute abnormality of the cervical spine. Reviewed by: Deion Carballo on 01/29/2023 12:57 PM PDT Approved by: Deion Carballo on 01/29/2023 12:57 PM PDT Station ID: [id number]
[2023-01-29 13:55] VITALS: BP 113/78
== END 2023-01-29 13:50 | disposition home or self-care (01) ==
LOC: ED 12:03
DX: S02.2XXA Fracture of nasal bones, initial encounter for closed fracture (principal); S82.025A Nondisplaced longitudinal fracture of left patella, initial encounter for closed fracture; S00.83XA Contusion of other part of head, initial encounter; W18.30XA Fall on same level, unspecified, initial encounter; Z91.81 History of falling; I10 Essential (primary) hypertension; E78.00 Pure hypercholesterolemia, unspecified; I48.91 Unspecified atrial fibrillation; Z86.73 Personal history of transient ischemic attack (TIA), and cerebral infarction without residual deficits; Z79.01 Long term (current) use of anticoagulants; Z79.899 Other long term (current) drug therapy
CPT/HCPCS: 36415; 80053; 85025; 85610; 85730; 99284